=== PATIENT | male | born 1970 | race Caucasian/White ===

== ENCOUNTER 2019-12-06 13:06 | Outpatient (REF) | payer MEDICARE, MEDICAID, SELFPAY ==
[2019-12-06 14:41] LABS: Creatinine Urine 147.04 mg/dL
[2019-12-06 14:52] LABS: Estimated Average Glucose 220 mg/dL; Hemoglobin A1c % 9.3 %
[2019-12-06 15:17] LABS: Anion Gap 13 (12-20); Blood Urea Nitrogen 12 mg/dL (9-16); Calcium 8.8 mg/dL (8.4-10.2); Carbon Dioxide 27 mmol/L (22-29); Chloride 99 mmol/L (96-108); Estimated Glomerular Filt Rate > 60; Glucose Random 341 mg/dL (60-115); Potassium 4.3 mmol/l (3.3-5.1); Sodium 135 mmol/L (135-145)
[2019-12-07 19:42] LABS: LDL Cholesterol Direct 121 mg/dL (<100)
== END 2019-12-06 13:07 | disposition home or self-care (01) ==
LOC: HO.HMGCLDS 13:06
PROVIDERS: PCP Internal Medicine; Visit Provider Internal Medicine
DX: E13.9 Other specified diabetes mellitus without complications (principal); E78.9 Disorder of lipoprotein metabolism, unspecified; K21.9 Gastro-esophageal reflux disease without esophagitis; Z00.01 Encounter for general adult medical examination with abnormal findings
CPT/HCPCS: 80048; 82043; 83036; 83721

== ENCOUNTER 2020-02-14 13:21 | Outpatient (REF) | payer MEDICARE, MEDICAID, SELFPAY | END 2020-02-14 13:22 | disposition home or self-care (01) | LOC: HO.HMGCLDS 13:21 | PROVIDERS: PCP Internal Medicine; Visit Provider Internal Medicine | DX: Z20.828 Contact with and (suspected) exposure to other viral communicable diseases (principal) | CPT/HCPCS: C9803; U0003 ==

== ENCOUNTER 2020-04-06 10:19 | Outpatient (REF) | payer MEDICARE, MEDICAID, SELFPAY ==
[2020-04-06 11:47] LABS: Alanine Aminotransferase 33 U/L (0-40); Albumin Level 3.8 g/dL (3.5-5.0); Alkaline Phosphatase 103 U/L (39-117); Anion Gap 15 (12-20); Aspartate Amino Transferase 49 U/L (5-37); Bilirubin Direct < 0.2 mg/dL (0.0-0.5); Bilirubin Total 0.3 mg/dL (0.0-1.0); Blood Urea Nitrogen 12 mg/dL (9-16); Calcium 9.2 mg/dL (8.4-10.2); Carbon Dioxide 28 mmol/L (22-29); Chloride 95 mmol/L (96-108); Estimated Glomerular Filt Rate > 60; Glucose Random 355 mg/dL (60-115); Potassium 4.9 mmol/L (3.3-5.1); Sodium 133 mmol/L (135-145)
[2020-04-06 12:08] LABS: Estimated Average Glucose 226 mg/dL; Hemoglobin A1c % 9.5 %
== END 2020-04-06 10:20 | disposition home or self-care (01) ==
LOC: HO.HMGCLDS 10:19
PROVIDERS: PCP Internal Medicine; Visit Provider Internal Medicine
DX: E11.65 Type 2 diabetes mellitus with hyperglycemia (principal); E78.9 Disorder of lipoprotein metabolism, unspecified; K21.9 Gastro-esophageal reflux disease without esophagitis
CPT/HCPCS: 36415; 80048; 80076; 83036

== ENCOUNTER → 2020-05-28 13:19 | Outpatient (BNVA) | payer MEDICARE, MEDICAID, SELFPAY | PROVIDERS: PCP Internal Medicine; Visit Provider Nurse Practitioner Gerontology | DX: E11.65 Type 2 diabetes mellitus with hyperglycemia (principal); E78.5 Hyperlipidemia, unspecified | CPT/HCPCS: 82947; 99212 ==

== ENCOUNTER 2020-06-28 08:53 | Outpatient (REF) | payer MEDICARE, MEDICAID, SELFPAY ==
[2020-06-28 10:15] LABS: Alanine Aminotransferase 14 U/L (0-40); Albumin Level 4.2 g/dL (3.5-5.0); Alkaline Phosphatase 98 U/L (39-117); Anion Gap 14 (12-20); Aspartate Amino Transferase 17 U/L (5-37); Bilirubin Total 0.2 mg/dL (0.0-1.0); Blood Urea Nitrogen 16 mg/dL (9-16); Calcium 9.9 mg/dL (8.4-10.2); Carbon Dioxide 29 mmol/L (22-29); Chloride 98 mmol/L (96-108); Cholesterol 177 mg/dL; Estimated Glomerular Filt Rate > 60; Glucose Fasting 164 mg/dL (60-99); HDL Cholesterol 39 mg/dL; LDL Cholesterol Calculated 114 mg/dl; Potassium 5.2 mmol/L (3.3-5.1); Sodium 136 mmol/L (135-145); Total Protein 7.3 g/dL (6.5-8.0); Triglycerides 122 mg/dL
[2020-06-28 10:51] LABS: Creatinine Urine 85.18 mg/dL; Microalbum/Creatinine Ratio Ur 24.6 ug/mg cr
[2020-06-29 17:41] LABS: LDL Cholesterol Direct 117 mg/dL (<100)
== END 2020-06-28 08:54 | disposition home or self-care (01) ==
LOC: HO.LAB 08:53
PROVIDERS: Visit Provider Nurse Practitioner Gerontology
DX: E11.65 Type 2 diabetes mellitus with hyperglycemia (principal)
CPT/HCPCS: 36415; 80053; 80061; 82043; 83721

== ENCOUNTER 2020-07-06 08:59 | Outpatient (REF) | payer MEDICARE, MEDICAID, SELFPAY ==
[2020-07-06 10:48] LABS: Anion Gap 13 (12-20); Blood Urea Nitrogen 22 mg/dL (9-16); Calcium 9.4 mg/dL (8.4-10.2); Carbon Dioxide 31 mmol/L (22-29); Chloride 96 mmol/L (96-108); Estimated Glomerular Filt Rate > 60; Glucose Random 155 mg/dL (60-115); Potassium 4.4 mmol/L (3.3-5.1); Sodium 136 mmol/L (135-145)
== END 2020-07-06 09:00 | disposition home or self-care (01) ==
LOC: HO.LAB 08:59
PROVIDERS: PCP Internal Medicine; Visit Provider Nurse Practitioner Gerontology
DX: E11.65 Type 2 diabetes mellitus with hyperglycemia (principal)
CPT/HCPCS: 36415; 80048

== ENCOUNTER → 2020-07-13 09:22 | Outpatient (BNVA) | payer MEDICARE, MEDICAID, SELFPAY | PROVIDERS: PCP Internal Medicine; Visit Provider Nurse Practitioner Gerontology | DX: E11.65 Type 2 diabetes mellitus with hyperglycemia (principal); E78.5 Hyperlipidemia, unspecified; R35.0 Frequency of micturition; R63.1 Polydipsia; Z79.84 Long term (current) use of oral hypoglycemic drugs; Z79.899 Other long term (current) drug therapy | CPT/HCPCS: 82947; 99212 ==

== ENCOUNTER → 2020-11-20 07:47 | Outpatient (BNVA) | payer MEDICARE, MEDICAID, SELFPAY | PROVIDERS: PCP Internal Medicine; Visit Provider Nurse Practitioner Gerontology | DX: E11.65 Type 2 diabetes mellitus with hyperglycemia (principal); E78.5 Hyperlipidemia, unspecified | CPT/HCPCS: Q3014 ==

== ENCOUNTER 2020-12-07 10:49 | Outpatient (REF) | payer MEDICARE, MEDICAID, SELFPAY ==
[2020-12-07 14:10] LABS: MANUAL DIFF FLAG NO
[2020-12-07 14:26] LABS: Estimated Average Glucose 212 mg/dL
[2020-12-07 14:29] LABS: Basophils Absolute Auto 0.1 X10*3/uL (0.0-0.2); Basophils Percent Auto 0.5 % (0-2); Eosinophils Absolute Auto 0.3 X10*3/uL (0.0-0.4); Eosinophils Percent Auto 2.1 % (0-4); Hematocrit 43.1 % (42-52); Hemoglobin 14.2 g/dl (14.0-18.0); Imm Gran Abs Auto 0.03 X10*3/uL (0.00-0.03); Imm Gran Pct Auto 0.2 % (0.0-0.4); Lymphocytes Absolute Auto 4.9 X10*3/uL (1.2-4.9); Lymphocytes Percent Auto 38.9 % (20-40); Mean Corpuscular HGB Conc 32.9 g/dl (31.0-36.0); Mean Corpuscular Volume 97.1 fL (80-98); Monocytes Percent Auto 7.6 % (2-11); Neutrophils Absolute Auto 6.4 X10*3/uL (2.0-8.3); Neutrophils Percent Auto 50.7 % (45-73); Platelet Count 218 X10*3/uL (160-400); Red Blood Count 4.44 X10*6/uL (4.60-5.80); White Blood Count 12.5 X10*3/uL (4.8-10.8)
[2020-12-07 14:34] LABS: Microalbum/Creatinine Ratio Ur 19.7 ug/mg cr
[2020-12-07 14:37] LABS: Alanine Aminotransferase 13 U/L (0-40); Albumin Level 4.1 g/dL (3.5-5.0); Alkaline Phosphatase 93 U/L (39-117); Anion Gap 16 (12-20); Aspartate Amino Transferase 18 U/L (5-37); Bilirubin Direct < 0.2 mg/dL (0.0-0.5); Bilirubin Total 0.2 mg/dL (0.0-1.0); Blood Urea Nitrogen 17 mg/dL (9-16); Calcium 9.5 mg/dL (8.4-10.2); Carbon Dioxide 27 mmol/L (22-29); Chloride 98 mmol/L (96-108); Estimated Glomerular Filt Rate > 60; Glucose Random 177 mg/dL (60-115); Potassium 4.8 mmol/L (3.3-5.1); Sodium 136 mmol/L (135-145); Total Protein 6.9 g/dL (6.5-8.0)
[2020-12-07 14:48] LABS: TSH reflex Free T4 1.72 uIU/mL (0.32-4.0)
[2020-12-08 12:31] LABS: LDL Cholesterol Direct 75 mg/dL (<100)
== END 2020-12-07 10:50 | disposition home or self-care (01) ==
LOC: HO.HMGCLDS 10:49
PROVIDERS: PCP Internal Medicine; Visit Provider Internal Medicine
DX: Z00.01 Encounter for general adult medical examination with abnormal findings (principal); E11.65 Type 2 diabetes mellitus with hyperglycemia; E78.9 Disorder of lipoprotein metabolism, unspecified
CPT/HCPCS: 36415; 80053; 82043; 82248; 83036; 83721; 84443; 85025

== ENCOUNTER 2021-02-16 13:45 | Outpatient (REF) | payer MEDICARE, MEDICAID, SELFPAY ==
[2021-02-16 15:07] LABS: Binax Internal Control QC Valid; Binax Lot number: 9864; Binax Now Covid-19 Ag Negative (Negative)
== END 2021-02-16 13:46 | disposition home or self-care (01) ==
LOC: HO.LAB 13:45
PROVIDERS: Visit Provider Internal Medicine
DX: Z20.822 Contact with and (suspected) exposure to COVID-19 (principal)
CPT/HCPCS: 36415; C9803

== ENCOUNTER → 2021-03-20 08:06 | Outpatient (BNVA) | payer MEDICARE, MEDICAID, SELFPAY | PROVIDERS: PCP Internal Medicine; Visit Provider Nurse Practitioner Gerontology | DX: E11.42 Type 2 diabetes mellitus with diabetic polyneuropathy (principal); E11.65 Type 2 diabetes mellitus with hyperglycemia; E78.5 Hyperlipidemia, unspecified | CPT/HCPCS: 82947; 83036; 99212 ==

== ENCOUNTER 2021-03-29 12:05 | Outpatient (REF) | payer MEDICARE, MEDICAID, SELFPAY ==
[2021-03-29 14:01] LABS: Alanine Aminotransferase 10 U/L (0-40); Albumin Level 3.9 g/dL (3.5-5.0); Alkaline Phosphatase 82 U/L (39-117); Aspartate Amino Transferase 12 U/L (5-37); Bilirubin Direct < 0.2 mg/dL (0.0-0.5); Bilirubin Total 0.3 mg/dL (0.0-1.0); Total Protein 6.7 g/dL (6.5-8.0)
== END 2021-03-29 12:06 | disposition home or self-care (01) ==
LOC: HO.LAB 12:05
PROVIDERS: PCP Internal Medicine; Visit Provider General Practice
DX: F25.1 Schizoaffective disorder, depressive type (principal); Z79.899 Other long term (current) drug therapy
CPT/HCPCS: 36415; 80076

== ENCOUNTER 2021-05-10 12:55 | Outpatient (REF) | payer MEDICARE, MEDICAID, SELFPAY ==
--- NOTE | ~2021-05-10 | XR_ITS ---
EXAMINATION: XR FACIAL BONES CLINICAL INFORMATION: Unspecified injury of the face. COMPARISON: None TECHNIQUE: 3 views of the facial bones were obtained. FINDINGS: There are no fractures or dislocations. No bone, joint or soft tissue abnormality is demonstrated. XR/XR facial bones <3V IMPRESSION: Unremarkable facial bones examination.
== END 2021-05-10 12:56 | disposition home or self-care (01) ==
LOC: HO.HMGCX 12:55
PROVIDERS: Visit Provider Internal Medicine
DX: S09.93XA Unspecified injury of face, initial encounter (principal)
CPT/HCPCS: 70140

== ENCOUNTER → 2021-08-14 10:16 | Outpatient (BNVA) | payer MEDICARE, MEDICAID, SELFPAY | PROVIDERS: PCP Internal Medicine; Visit Provider Nurse Practitioner Gerontology | DX: E11.65 Type 2 diabetes mellitus with hyperglycemia (principal); E11.42 Type 2 diabetes mellitus with diabetic polyneuropathy; E78.5 Hyperlipidemia, unspecified; Z79.84 Long term (current) use of oral hypoglycemic drugs | CPT/HCPCS: 82947; 99212 ==

== ENCOUNTER 2021-12-13 10:16 | Outpatient (REF) | payer MEDICARE, MEDICAID, SELFPAY ==
[2021-12-13 11:25] LABS: MANUAL DIFF FLAG NO
[2021-12-13 11:31] LABS: Basophils Absolute Auto 0.1 X10*3/uL (0.0-0.2); Basophils Percent Auto 0.5 % (0-2); Eosinophils Absolute Auto 0.2 X10*3/uL (0.0-0.4); Eosinophils Percent Auto 1.9 % (0-4); Hematocrit 45.1 % (42.0-52.0); Hemoglobin 14.6 g/dl (14.0-18.0); Imm Gran Abs Auto 0.06 X10*3/uL (0.00-0.03); Imm Gran Pct Auto 0.5 % (0.0-0.4); Lymphocytes Absolute Auto 3.7 X10*3/uL (1.2-4.9); Lymphocytes Percent Auto 31.1 % (20-40); Mean Corpuscular HGB Conc 32.4 g/dl (31.0-36.0); Mean Corpuscular Hemoglobin 31.2 pg (27.0-33.0); Mean Corpuscular Volume 96.4 fL (80.0-98.0); Mean Platelet Volume 10.6 fL (9.4-12.4); Monocytes Absolute Auto 0.7 X10*3/uL (0.1-1.2); Monocytes Percent Auto 6.2 % (2-11); Neutrophils Absolute Auto 7.1 x10*3/uL (2.0-8.3); Neutrophils Percent Auto 59.8 % (45-73); Platelet Count 224 X10*3/uL (160-400); Red Blood Count 4.68 X10*6/uL (4.60-5.80); Red Cell Distribution Width 13.5 % (11.0-16.0)
[2021-12-13 11:47] LABS: Estimated Average Glucose 186 mg/dL; Hemoglobin A1c % 8.1 %
[2021-12-13 11:58] LABS: Alanine Aminotransferase 9 U/L (0-40); Alkaline Phosphatase 100 U/L (39-117); Anion Gap 16 (12-20); Aspartate Amino Transferase 15 U/L (5-37); Bilirubin Total 0.2 mg/dL (0.0-1.0); Blood Urea Nitrogen 17 mg/dL (9-16); Calcium 9.6 mg/dL (8.4-10.2); Carbon Dioxide 29 mmol/L (22-29); Chloride 99 mmol/L (96-108); Estimated Glomerular Filt Rate > 60; Glucose Random 129 mg/dL (60-115); Potassium 4.5 mmol/L (3.3-5.1); Sodium 139 mmol/L (135-145); Total Protein 6.8 g/dL (6.5-8.0)
[2021-12-13 12:07] LABS: TSH reflex Free T4 1.42 uIU/mL (0.32-4.0)
[2021-12-15 08:42] LABS: LDL Cholesterol Direct 95 mg/dL (<100)
== END 2021-12-13 10:17 | disposition home or self-care (01) ==
LOC: HO.HMGCLDS 10:16
PROVIDERS: PCP Internal Medicine; Visit Provider Internal Medicine
DX: Z00.01 Encounter for general adult medical examination with abnormal findings (principal); E13.9 Other specified diabetes mellitus without complications; E78.9 Disorder of lipoprotein metabolism, unspecified; K21.9 Gastro-esophageal reflux disease without esophagitis
CPT/HCPCS: 36415; 80053; 83036; 83721; 84443; 85025

== ENCOUNTER 2022-06-13 10:04 | Outpatient (REF) | payer MEDICARE, MEDICAID, SELFPAY ==
[2022-06-13 11:44] LABS: MANUAL DIFF FLAG NO
[2022-06-13 12:03] LABS: Basophils Absolute Auto 0.1 X10*3/uL (0.0-0.2); Basophils Percent Auto 0.5 % (0-2); Eosinophils Absolute Auto 0.2 X10*3/uL (0.0-0.4); Eosinophils Percent Auto 1.9 % (0-4); Hematocrit 38.8 % (42.0-52.0); Hemoglobin 12.7 g/dl (14.0-18.0); Imm Gran Abs Auto 0.04 X10*3/uL (0.00-0.03); Imm Gran Pct Auto 0.4 % (0.0-0.4); Lymphocytes Absolute Auto 3.6 X10*3/uL (1.2-4.9); Lymphocytes Percent Auto 34.8 % (20-40); Mean Corpuscular HGB Conc 32.7 g/dl (31.0-36.0); Mean Corpuscular Hemoglobin 31.4 pg (27.0-33.0); Mean Platelet Volume 11.3 fL (9.4-12.4); Monocytes Absolute Auto 0.9 X10*3/uL (0.1-1.2); Monocytes Percent Auto 8.2 % (2-11); Neutrophils Absolute Auto 5.7 x10*3/uL (2.0-8.3); Neutrophils Percent Auto 54.2 % (45-73); Platelet Count 209 X10*3/uL (160-400); Red Blood Count 4.04 X10*6/uL (4.60-5.80); Red Cell Distribution Width 13.7 % (11.0-16.0); White Blood Count 10.5 X10*3/uL (4.8-10.8)
[2022-06-13 12:05] LABS: Estimated Average Glucose 237 mg/dL; Hemoglobin A1c % 9.9 %
[2022-06-13 12:42] LABS: Alanine Aminotransferase 8 U/L (0-40); Albumin Level 3.3 g/dL (3.5-5.0); Alkaline Phosphatase 106 U/L (39-117); Anion Gap 12 (12-20); Aspartate Amino Transferase 12 U/L (5-37); Bilirubin Total 0.2 mg/dL (0.0-1.0); Blood Urea Nitrogen 17 mg/dL (9-16); Carbon Dioxide 31 mmol/L (22-29); Chloride 99 mmol/L (96-108); Cholesterol 110 mg/dL; Estimated Glomerular Filt Rate > 60; Glucose Fasting 292 mg/dL (60-99); Glucose Random 289 mg/dL (60-115); HDL Cholesterol 35 mg/dL; LDL Cholesterol Calculated 51 mg/dl; Potassium 4.7 mmol/L (3.3-5.1); Sodium 137 mmol/L (135-145); TSH reflex Free T4 1.57 uIU/mL (0.32-4.0); Total Protein 5.9 g/dL (6.5-8.0); Triglycerides 123 mg/dL
[2022-06-13 12:59] LABS: Creatinine Urine 49.22 mg/dL; Microalbumin Urine < 5.0 mg/L
[2022-06-15 04:58] LABS: LDL Cholesterol Direct 51 mg/dL (<100)
== END 2022-06-13 10:05 | disposition home or self-care (01) ==
LOC: HO.HMGCLDS 10:04
PROVIDERS: PCP Internal Medicine; Visit Provider Internal Medicine
DX: E11.42 Type 2 diabetes mellitus with diabetic polyneuropathy (principal); E78.9 Disorder of lipoprotein metabolism, unspecified
CPT/HCPCS: 36415; 80053; 80061; 82043; 83036; 83721; 84443; 85025

== ENCOUNTER 2022-09-12 09:17 | Outpatient (AMB) | payer MEDICARE, MEDICAID, SELFPAY ==
--- NOTE | 2022-09-12 09:21 | A.OFFPC_ITS ---
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: No Accompanied by: Self / Same As Patient Allergies No Known Allergies Allergy (Verified 09/12/22 09:24) Medication List - Last Reconciled 09/12/22 by Mauro Zambrano MD acetaminophen 325 mg PO Q6H PRN atorvastatin 40 mg PO BEDTIME blood sugar diagnostic ([employer] No Coding strips) Tests 4X/day blood-glucose meter ([employer] Autocode Meter kit) Tests 4X/day clonidine HCl 0.1 mg PO TID dulaglutide (Trulicity) 4.5 mg (0.5 mL) subcut QWEEK empagliflozin (Jardiance) 10 mg PO QAM hydroxyzine pamoate (Vistaril) 50 mg PO BEDTIME lancets (Accu-Chek Softclix Lancets) As directed lancets ([employer] Lancets) tests 4/day latex gloves (Latex Gloves, Medium) As directed omeprazole 20 mg PO QAM 90 days risperidone 3 mg PO BID Tobacco use date assessed: 06/13/22 Dental Screening Dental Screen Date: 09/12/22 Did you have a dental visit in the last 12 months?: Yes Did you have a dental problem in the last 6 months where you did not have access to dental care?: No Was dental information given to patient?: Patient has dentist HPI 4 Month follow up HPI Details Patient is 52-year-old gentleman came in today for his regular follow- up The only medication from PCP office is Tylenol for aches and pains Zestril 2.5 mg as renal protection for diabetes And omeprazole 20 mg Patient has appointment with endocrinology October 01, I wrote the date and handed to the family member so he does not miss the appointment His hemoglobin A1c is 9.7 today He is to continue all his diabetic medications for now until seen next month by Dr. Valdez Patient has appointment with me in December for physical exam Labs needs to be done before the visit fasting. Order placed. [facility] Medical History Chronic GERD DM2 (diabetes mellitus, type 2) Hyperlipidemia LDL goal <100 Lipid disorder Schizophrenia Type 2 diabetes mellitus with diabetic polyneuropathy Uncontrolled diabetes mellitus Surgical History Hernia History of back surgery History of colonoscopy History of knee surgery Family History Father Colon cancer Mother No problems noted. Brother No problems noted. Sister No problems noted. Social History Household Members: Other Household Members Other:: Shared living - [facility] Housing Housing: Assisted Living Facility (service [facility] ) Alcohol intake: never Patient Tobacco Use Status: Current everyday Tobacco user Cigarette Packs Per Day: 1 e-Cigarette/Vaping Use: Never Used Current occupational status: disabled Cognitive needs: No Hearing needs: No Vision needs: Yes Questionnaire PHQ-9 Over the last 2 weeks, how often have you been bothered by any of the following problems? 1. Little interest or pleasure in doing things: not at all 2. Feeling down, depressed, or hopeless: not at all 3. Trouble falling or staying asleep, or sleeping too much: not at all 4. Feeling tired or having little energy: not at all 5. Poor appetite or overeating: not at all 6. Feeling bad about yourself - or that you are a failure or have let yourself or your family down: not at all 7. Trouble concentrating on things, such as reading the newspaper or watching television: not at all 8. Moving or speaking so slowly that other people could have noticed. Or the opposite - being so fidgety or restless that you have been moving around a lot more than usual: not at all 9. Thoughts that you would be better off or of hurting yourself in some way: not at all Total score: 0 Depression Screening Interpretation: Negative 19105 - PHQ-9 Billing: Yes Source: Developed by Drs. Juan Akins, Janice Sheets, Oscar Jolly and colleagues, with an educational jyotsna from [employer]. Thrive Questionnaire Date Thrive assessed: 10/23/21 KENNETH-7 AMB Questionnaire KENNETH-7 Date KENNETH - 7 assessed: 09/12/22 Source: Developed by Drs. Juan Akins, Janice Sheets, Oscar Jolly and colleagues, with an educational jyotsna from [employer]. KENNETH-7 Assessment Billing KENNETH-7 Assessment Tool: pt declined-do not bill Review of Systems Const Denies chills and Denies fever(s) ENT Denies epistaxis and Denies nasal discharge Card Denies chest pain Resp Denies chest congestion, Denies cough and Denies hemoptysis GI Denies diarrhea and Denies nausea Skin/Breast Denies rash Neuro Reports no additional complaints Psych Reports no additional complaints Endo Reports no additional complaints Physical exam (Primary Care) Vital Signs: Last Vital Signs Pulse 85 09/12/22 09:27 BP 112/74 09/12/22 09:27 Pulse Ox 95 09/12/22 09:27 BMI result Body Mass Index 27.4 Tobacco/Smoking Status: Tobacco use Status Tobacco use date assessed 06/13/22 09/12/22 09:23 Patient Tobacco Use Status Current everyday Tobacco 09/12/22 09:23 e-Cigarette/Vaping Use Never Used 09/12/22 09:23 PHQ-9: PHQ-9 Score PHQ-9: Total score 0 09/12/22 09:27 Depression Screening Interpretation: Negative Thrive Assessment: Date of Thrive Assessment Date Thrive assessed 10/23/21 09/12/22 09:23 Const General: cooperative, comfortable and no acute distress Orientation/consciousness: patient oriented x3 HENMT Head: Yes normocephalic Eyes General: appearance normal, both eyes and all related structures Neck Neck: Yes supple Resp Effort & Inspection: normal respiratory effort, no cough and no stridor Cardio Rhythm: regular rhythm Heart sounds: S1 normal heart sound present and S2 normal heart sound present Skin General skin exam: turgor normal Neuro General: patient oriented x3, tone normal and moves all extremities Extrem Right lower extremity: no edema Left lower extremity: no edema Assessment and Plan Assessment & Plan (1) Uncontrolled diabetes mellitus: Code(s): E11.65 - Type 2 diabetes mellitus with hyperglycemia Qualifiers: Diabetes mellitus type: type 2 Glycemic state: with hyperglycemia Qualified Code(s): E11.65 - Type 2 diabetes mellitus with hyperglycemia (2) Chronic GERD: Code(s): K21.9 - Gastro-esophageal reflux disease without esophagitis Plan Patient is 52-year-old gentleman came in today for his regular follow-up The only medication from PCP office is Tylenol for aches and pains Zestril 2.5 mg as renal protection for diabetes And omeprazole 20 mg Patient has appointment with endocrinology October 01, I wrote the date and handed to the family member so he does not miss the appointment His hemoglobin A1c is 9.7 today He is to continue all his diabetic medications for now until seen next month by Dr. Valdez Patient has appointment with me in December for physical exam Labs needs to be done before the visit fasting. Order placed. Orders: Orders AMB Hemoglobin A1c Today E11.9 - Type 2 diabetes mellitus without complications Comprehensive [place]. Panel Fast Today E11.65 - Type 2 diabetes mellitus with hyperglycemia, E78.9 - Disorder of lipoprotein metabolism, unspecified, K21.9 - Gastro-esophageal reflux disease without esophagitis Hemoglobin A1c Today E11.65 - Type 2 diabetes mellitus with hyperglycemia, E78.9 - Disorder of lipoprotein metabolism, unspecified, K21.9 - Gastro-esophageal reflux disease without esophagitis Lipid Panel Today E11.65 - Type 2 diabetes mellitus with hyperglycemia, E78.9 - Disorder of lipoprotein metabolism, unspecified, K21.9 - Gastro-esophageal reflux disease without esophagitis TSH reflex Free T4 Today E11.65 - Type 2 diabetes mellitus with hyperglycemia, 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 - Disorder of lipoprotein metabolism, unspecified, K21.9 - Gastro- esophageal reflux disease without esophagitis Microalbumin, Random (w Creat) Today E11.65 - Type 2 diabetes mellitus with hyperglycemia, E78.9 - Disorder of lipoprotein metabolism, unspecified, K21.9 - Gastro-esophageal reflux disease without esophagitis Complete Blood Count Auto Diff Today E11.65 - Type 2 diabetes mellitus with hyperglycemia, E78.9 - Disorder of lipoprotein metabolism, unspecified, K21.9 - Gastro-esophageal reflux disease without esophagitis Coding Level of Care Code Est Pt Level 3 (03896) Diagnoses Uncontrolled diabetes mellitus E11.65 Diabetes mellitus type: type 2 Glycemic state: with hyperglycemia Chronic GERD K21.9
[2022-09-12 09:27] VITALS: BP 112/74; PULSE 85; O2SAT 95; BMI 27.4
== END 2022-09-12 10:22 | disposition home or self-care (01) ==
PROVIDERS: Visit Provider Internal Medicine
DX: E11.65 Type 2 diabetes mellitus with hyperglycemia (principal); K21.9 Gastro-esophageal reflux disease without esophagitis; E11.9 Type 2 diabetes mellitus without complications
CPT/HCPCS: 83036; 99213

== ENCOUNTER 2022-10-01 10:05 | Outpatient (AMB) | payer MEDICARE, MEDICAID, SELFPAY ==
--- NOTE | 2022-10-01 10:07 | MHC.OFFVIS ---
Intake Vital Signs 10/01/22 10:08 Height 5 ft 6 in Weight 171 lb 8.314 oz BMI 27.7 BP 112/64 Blood Pressure Location Lt brachial Position Sitting Pulse 96 Pulse Source Pulse Oximeter Intake Visit Reasons: DM2 Intake Note: New patient to Dr. Valdez present today for Type 2 Diabetes Mellitus. Previously followed by PCP and Katy Leavitt. Last Diabetic Eye exam: Last Podiatry Visit: Random Glucose:261 mg/dl HgA1C: 9.7% 09/12/2022 Oven Dumper Required: No Accompanied by: Other Relationship Allergies No Known Allergies Allergy (Verified 10/01/22 10:14) Medication List - Last Reconciled 10/01/22 by Juan Valdez MD acetaminophen 325 mg PO Q6H PRN atorvastatin 40 mg PO BEDTIME blood sugar diagnostic ([employer] No Coding strips) Tests 4X/day blood-glucose meter ([employer] Autocode Meter kit) Tests 4X/day clonidine HCl 0.1 mg PO TID dulaglutide (Trulicity) 4.5 mg (0.5 mL) subcut QWEEK empagliflozin (Jardiance) 10 mg PO QAM hydroxyzine pamoate (Vistaril) 50 mg PO BEDTIME lancets (Accu-Chek Softclix Lancets) As directed lancets ([employer] Lancets) tests 4/day latex gloves (Latex Gloves, Medium) As directed metformin 1,000 mg PO BID omeprazole 20 mg PO QAM 90 days risperidone 3 mg PO BID HPI HPI Comments History of Present Illness Details Patient is 52 year old male with DM type 2 diagnosed for an unknown amount of time who presents for management of diabetes. Patient was last seen on 08/14/2021 by Katy Leavitt NP Past medical history: Dm2, HLD, schizophrenia Micro and macrovascular complications: neuropathy Diabetes medications: Trulicity 4.5 mg/week, Jardiance 10mg, metformin 500 2 pills BID, pioglitazone 15mg not taking . Unfortunately, patient did not bring log book or glucometer to follow-up visit Symptoms reported: denies numbness, tingling, cramping in lower extremities Hypoglycemia: denies Hyperglycemia: + urinary frequency, +polydypsia Exercise: walks 30 minutes or more a few times a day Eye exam: needs to make appt Laboratory Tests 03/20/21 08:34 Hgb A1c (Clinic) 9.9 H 12/07/20 12/07/20 12/07/20 10:58 10:58 10:58 Creatinine 0.86 Estimated GFR > 60 Hemoglobin A1c % 9.0 LDL Cholesterol Di rect 75 TSH 1.72 Microalb/Creat Rat io 12/07/20 10:58 Creatinine Estimated GFR Hemoglobin A1c % LDL Cholesterol Di rect TSH Microalb/Creat Rat io 19.7 PFSH Medical History Chronic GERD DM2 (diabetes mellitus, type 2) Hyperlipidemia LDL goal <100 Lipid disorder Schizophrenia Type 2 diabetes mellitus with diabetic polyneuropathy Uncontrolled diabetes mellitus Surgical History Hernia History of back surgery History of colonoscopy History of knee surgery Family History Father Colon cancer Mother No problems noted. Brother No problems noted. Sister No problems noted. Social History Household Members: Other Household Members Other:: Shared living - [facility] Housing Housing: Assisted Living Facility (service [facility] ) Alcohol intake: never Patient Tobacco Use Status: Current everyday Tobacco user Cigarette Packs Per Day: 1 e-Cigarette/Vaping Use: Never Used Current occupational status: disabled Cognitive needs: No Hearing needs: No Vision needs: Yes Physical Exam Absence of Cushingoid features. Absence of acromegalic features. Neck exam reveals nl size thyroid about 15 gms. No thyroid nodules palpable. No carotid bruits present. Lungs CTA. Heart S1 S2, Reg R/R. No M/R/ G. Skin exam reveals absence of vitiligo or acanthosis nigricans. Abdominal exam reveals Soft NT/ND with NA BS. No organomegaly present. Neck Other: . Extrem Other: Visual exam of foot performed. No ulcerations or open lesions. No onchomycosis, no callouses.Pulses 2 + distally Sensation intact to monofilament exam. Vibratory sensation sensed is intact with 128 Hz tuning fork Assessment & Plan Assessment & Plan (1) Uncontrolled diabetes mellitus: Code(s): E11.65 - Type 2 diabetes mellitus with hyperglycemia Qualifiers: Diabetes mellitus type: type 2 Glycemic state: with hyperglycemia Qualified Code(s): E11.65 - Type 2 diabetes mellitus with hyperglycemia Plan: This is a 52-year-old white male with a history of type 2 diabetes being managed with Trulicity, Jardiance, metformin with poor glycemic control and known microvascular complications namely neuropathy. Plan is to have the patient check his point cares pre and post meals. Most likely, he will need addition of basal insulin. Will sent to para educator and risk assessment consultant. Went over correlation of poor glycemic control to development progression of complications with patient. We could consider placing a professional sensor on the patient once he meets with the para educator Orders: Referrals Diabetes Education Referral E11.65 - Type 2 diabetes mellitus with hyperglycemia Nutrition/Dietitian Referral E11.65 - Type 2 diabetes mellitus with hyperglycemia Coding Level of Care Code Est Pt Level 4 (20682) Diagnoses Uncontrolled diabetes mellitus E11.65 Diabetes mellitus type: type 2 Glycemic state: with hyperglycemia
[2022-10-01 10:08] VITALS: BP 112/64; PULSE 96; BMI 27.7
[2022-10-01 10:25] LABS: Glucose, Whole Blood 261 mg/dL (60-115)
== END 2022-10-01 11:03 | disposition home or self-care (01) ==
PROVIDERS: PCP Internal Medicine; Visit Provider Internal Medicine Endocrinology, Diabetes & Metabolism
DX: E11.65 Type 2 diabetes mellitus with hyperglycemia (principal)
CPT/HCPCS: 99214

== ENCOUNTER → 2022-10-01 10:05 | Outpatient (BNVA) | payer MEDICARE, MEDICAID, SELFPAY | PROVIDERS: Visit Provider Internal Medicine Endocrinology, Diabetes & Metabolism | DX: E11.65 Type 2 diabetes mellitus with hyperglycemia (principal); E11.42 Type 2 diabetes mellitus with diabetic polyneuropathy; Z79.4 Long term (current) use of insulin; Z79.85 Long-term (current) use of injectable non-insulin antidiabetic drugs; Z79.84 Long term (current) use of oral hypoglycemic drugs | CPT/HCPCS: 82947; 99212 ==

== ENCOUNTER 2022-11-11 11:22 | Outpatient (AMB) | payer MEDICARE, MEDICAID, SELFPAY ==
--- NOTE | 2022-11-11 11:26 | A.OFFVIS_ITS ---
Intake VS Expanded 11/11/22 11:28 11/14/22 09:51 Height 5 ft 6 in 5 ft 6 in Weight 168 lb 13.985 oz 168 lb BMI 27.3 27.1 Intake Visit Reasons: f/u Type 2 DM/LVM Allergies No Known Allergies Allergy (Verified 10/01/22 10:14) HPI Nutrition Presentation Details Pt was referred by Dr. Valdez for T2DM With hyperglycemia for MNT Pt presents with home health provider, Adriana and her daughter. Pt has hx of schizophrenia. Pt participates in nutrition conversation and sometimes changes topics Home health provider reports working on meal planning at home however, Pt has lunch and dinner away from home. Pt reports participating in various evangelical events where meals/foods is offered They brought glucometer ([employer] Playbook) and BG range from 140-300s , these BGs are before meals when Pt is at home, home health provider assists patient in monitoring blood glucose while Pt is a t home. Fasting Pre dinner bedtime 11/11 140 11/10 174 11/09 200 180 11/08 221 239 11/07 183 340 Pt is able to read and understands numbers. Home health provider is requesting blanca sensor for Pt given that Pt eats out dilma nch/dinner the majority of the time and the glucose sensor will help Pt in self monitoring when eating Encounter sent to Dr. Valdez requesting blanca sensor related to hyperglycemia, Schizophrenia Pt and home health provider need education on meal planning, relationship of carbs to BG MMA-Vehrjso-Vh.Jeor Equation Height 5 ft 6 in Weight 168 lb Resting Metabolic Rate 1548.34 Calculated Activity Level Mild Activity Calories Needed to Maintain Weight 2128.97 Diagnosis Nutrition problem #1 excessive energy intake As related to (etiology) #1 diagnosis As evidenced by (sign/symptom) #1 widely varied blood sugar (BG ranging from 140-300s) Learning/Education Readiness to learn fair Educational materials provided Yes (meal plan ideas home and when eatin gout ) Most Recent Diabetes Results: Microalb/Creat Ratio TNP 06/13/22 Cholesterol 110 mg/dL 06/13/22 HDL Cholesterol 35 mg/dL 06/13/22 Triglycerides 123 mg/dL 06/13/22 Creatinine 0.93 mg/dL (0.5-1.4) 06/13/22 Blood Urea Nitrogen 17 mg/dL (9-16) H 06/13/22 Sodium 137 mmol/L (135-145) 06/13/22 Potassium 4.7 mmol/L (3.3-5.1) 06/13/22 Chloride 99 mmol/L (96-108) 06/13/22 Carbon Dioxide 31 mmol/L (22-29) H 06/13/22 Calcium 9.0 mg/dL (8.4-10.2) 06/13/22 AST 12 U/L (5-37) 06/13/22 ALT 8 U/L (0-40) 06/13/22 Total Protein 5.9 g/dL (6.5-8.0) L 06/13/22 Albumin 3.3 g/dL (3.5-5.0) L 06/13/22 [facility] Medical History Chronic GERD DM2 (diabetes mellitus, type 2) Hyperlipidemia LDL goal <100 Lipid disorder Schizophrenia Type 2 diabetes mellitus with diabetic polyneuropathy Uncontrolled diabetes mellitus Surgical History Hernia History of back surgery History of colonoscopy History of knee surgery Family History Father Colon cancer Mother No problems noted. Brother No problems noted. Sister No problems noted. Social History Household Members: Other Household Members Other:: Shared living - [employer] [facility] Housing Housing: Assisted Living Facility (service net ) Alcohol intake: never Patient Tobacco Use Status: Current everyday Tobacco user Cigarette Packs Per Day: 1 e-Cigarette/Vaping Use: Never Used Current occupational status: disabled Cognitive needs: No Hearing needs: No Vision needs: Yes Assessment & Plan Assessment & Plan (1) Uncontrolled diabetes mellitus: Code(s): E11.65 - Type 2 diabetes mellitus with hyperglycemia Qualifiers: Diabetes mellitus type: type 2 Glycemic state: with hyperglycemia Qualified Code(s): E11.65 - Type 2 diabetes mellitus with hyperglycemia Plan: wt 76 kg Est kcal needs as per MSJ: 2200 (40% carb, 30% protein/fat) Est fluid needs as per 30 ml/d: 2300 Est prot per day as per 1 g/kg bw: 76 Recommend fiber intake : 8-10 g per day and gradually increase to 25-28 g per day for women and 35-38 g for men or as tolerated Recommend sodium intake per day : less than 2000 mg Educated patient on: ( R = reviewed V = verbalizes understanding N/R = needs review N/A = not applicable * Food sources of carbohydrate, adequate serving sizes and its role in various health conditions: R * Differences between complex carbohydrates a simple carbohydrates, role of fiber in diet: NR * Differences between types of fats and role in diet (mono on saturated fat fatty acids, saturated fatty acids, trans fats): R , basic low fat * Food sources of sodium in salt and healthy modifications for heart health in kidney health: NR * Healthy plate method concept: R * Physical activity: Benefits a precaution: R * Hypoglycemia protocol (rule of 15): NR * Dietary prevention of Hyperglycemia: R Patient Instructions: Choose water or diet beverages with meals /snacks Choose 12 microgrinder operator (tuna or turkey or ham or chicken with lots of vegetables and omit cookies, choose milk instead follow healthy plate method at dinner - see meal ideas listed and provided Coding Level of Care Code Nutr Indiv Intake (92244) Diagnoses Uncontrolled type 2 diabetes mellitus with hyperglycemia E11.65 Diabetes mellitus type: type 2 Glycemic state: with hyperglycemia Time Spent (min) 30
[2022-11-11 11:28] VITALS: BMI 27.3
[2022-11-14 09:51] VITALS: BMI 27.1
== END 2022-11-11 12:22 | disposition home or self-care (01) ==
PROVIDERS: PCP Internal Medicine; Visit Provider Dietitian, Registered
DX: E11.65 Type 2 diabetes mellitus with hyperglycemia (principal)

== ENCOUNTER → 2022-11-11 11:22 | Outpatient (BNVA) | payer MEDICARE, MEDICAID, SELFPAY | PROVIDERS: PCP Internal Medicine; Visit Provider Dietitian, Registered | DX: E11.65 Type 2 diabetes mellitus with hyperglycemia (principal); E11.42 Type 2 diabetes mellitus with diabetic polyneuropathy; Z71.3 Dietary counseling and surveillance | CPT/HCPCS: 97802 ==

== ENCOUNTER 2022-12-10 12:22 | Outpatient (AMB) | payer MEDICARE, MEDICAID, SELFPAY ==
--- NOTE | 2022-12-10 12:40 | MHC.AMDMED ---
Intake Intake Visit Reasons: dm [employer] Bag[employer]ener Required: No Allergies No Known Allergies Allergy (Verified 10/01/22 10:14) [facility] Comprehensive Diabetes Asmnt Most Recent Diabetes Results: Microalb/Creat Ratio TNP 06/13/22 Cholesterol 110 mg/dL 06/13/22 HDL Cholesterol 35 mg/dL 06/13/22 Triglycerides 123 mg/dL 06/13/22 Creatinine 0.93 mg/dL (0.5-1.4) 06/13/22 Blood Urea Nitrogen 17 mg/dL (9-16) H 06/13/22 Sodium 137 mmol/L (135-145) 06/13/22 Potassium 4.7 mmol/L (3.3-5.1) 06/13/22 Chloride 99 mmol/L (96-108) 06/13/22 Carbon Dioxide 31 mmol/L (22-29) H 06/13/22 Calcium 9.0 mg/dL (8.4-10.2) 06/13/22 AST 12 U/L (5-37) 06/13/22 ALT 8 U/L (0-40) 06/13/22 Total Protein 5.9 g/dL (6.5-8.0) L 06/13/22 Albumin 3.3 g/dL (3.5-5.0) L 06/13/22 FOR[facility]LY [facility], [facility] Medical History Chronic GERD DM2 (diabetes mellitus, type 2) Hyperlipidemia LDL goal <100 Lipid disorder Schizophrenia Type 2 diabetes mellitus with diabetic polyneuropathy Uncontrolled diabetes mellitus Surgical History Hernia History of back surgery History of colonoscopy History of knee surgery Family History Father Colon cancer Mother No problems noted. Brother No problems noted. Sister No problems noted. Social History Household Members: Other Household Members Other:: Shared living - Service Net Housing Housing: Assisted Living Facility (service net ) Alcohol intake: never Patient Tobacco Use Status: Current everyday Tobacco user Cigarette Packs Per Day: 1 e-Cigarette/Vaping Use: Never Used Current occupational status: disabled Cognitive needs: No Hearing needs: No Vision needs: Yes Assessment & Plan Assessment & Plan (1) Type 2 diabetes mellitus with diabetic polyneuropathy: Code(s): E11.42 - Type 2 diabetes mellitus with diabetic polyneuropathy Plan: Professional CGM Patient has signed consent for professional CGM. Patient given the opportunity to ask questions, and expressed concerns. Sensor placed in the back of patient's back of right arm Lot # [id number] Expiration Date:02/15/23 The purpose of the Professional Continuous Glucose Monitor (CGM) is to assess your blood sugar patterns in response to what you eat, the diabetes medications you take and physical activity .? This is why we have you keep a diary of what you eat and when, what time you take your? diabetes medications and what activity you do and when, while you are wearing the continuous glucose monitor . ? The continuous glucose monitoring (CGM) device will monitor your blood sugar frequently throughout the day and night. ? Please be sure to record everything that you eat, including portion sizes, all activity you do and when you take your diabetes medication . ? It is okay for you to shower and go about your normal daily activities while wearing the device ? . ? It is best to wear the device when you are having a normal week and best to avoid if you will be on vacation or undergoing medical testing or procedures ? . ? At your next scheduled appointment your continuous glucose monitor will be removed, and the data will be evaluated by your health care provider . ? We will contact you about those results and provide you with next steps ? If the device falls off before your next appointment is scheduled, simply return the device and your diary to the clinic . ? If it has been on for greater than three days there might be enough data to complete the test. If it is less than three days, you may need to have another device placed. Patient Instructions: The purpose of the Professional Continuous Glucose Monitor (CGM) is to assess your blood sugar patterns in response to what you eat, the diabetes medications you take and physical activity .? This is why we have you keep a diary of what you eat and when, what time you take your? diabetes medications and what activity you do and when, while you are wearing the continuous glucose monitor . ? The continuous glucose monitoring (CGM) device will monitor your blood sugar frequently throughout the day and night. ? Please be sure to record everything that you eat, including portion sizes, all activity you do and when you take your diabetes medication . ? It is okay for you to shower and go about your normal daily activities while wearing the device ? . ? It is best to wear the device when you are having a normal week and best to avoid if you will be on vacation or undergoing medical testing or procedures ? . ? At your next scheduled appointment your continuous glucose monitor will be removed, and the data will be evaluated by your health care provider . ? We will contact you about those results and provide you with next steps ? If the device falls off before your next appointment is scheduled, simply return the device and your diary to the clinic . ? If it has been on for greater than three days there might be enough data to complete the test. If it is less than three days, you may need to have another device placed. Portions of this note were created using voice recognition software, please excuse any words or phrases that may have been misinterpreted. Coding Level of Care Code Est Pt Level 1 (39438) Diagnoses Type 2 diabetes mellitus with diabetic polyneuropathy E11.42 CPT Codes Details - CPT: 17016 - Glucose Monitoring, continuous ([id number]) Office Procedures Glucose Monitoring Details 50915 - Glucose Monitoring, continuous Procedure code (CPT) selection complete
== END 2022-12-10 12:53 | disposition home or self-care (01) ==
PROVIDERS: PCP Internal Medicine; Visit Provider Registered Nurse Diabetes Educator
DX: E11.42 Type 2 diabetes mellitus with diabetic polyneuropathy (principal)

== ENCOUNTER → 2022-12-10 12:22 | Outpatient (BNVA) | payer MEDICARE, MEDICAID, SELFPAY | PROVIDERS: PCP Internal Medicine; Visit Provider Registered Nurse Diabetes Educator | DX: E11.42 Type 2 diabetes mellitus with diabetic polyneuropathy (principal) | CPT/HCPCS: 95250; 99211 ==

== ENCOUNTER 2022-12-26 10:03 | Outpatient (AMB) | payer MEDICARE, MEDICAID, SELFPAY ==
[2022-12-26 10:05] VITALS: BP 118/72; PULSE 98; O2SAT 97; BMI 28.9
--- NOTE | 2022-12-26 10:05 | A.OFFPC_ITS ---
Vital Signs 3 12/26/22 10:05 Height 5 ft 6 in Weight 179 lb BMI 28.9 BP 118/72 Blood Pressure Location Rt brachial Position Sitting Pulse 98 Pulse Source Pulse Oximeter Pulse Oximetry (%) 97 Oxygen Delivery Method Room Air Intake Visit Reasons: annual PE Allergies No Known Allergies Allergy (Verified 12/26/22 10:07) Medication List - Last Reconciled 12/26/22 by Mauro Zambrano MD acetaminophen 325 mg PO Q6H PRN atorvastatin 40 mg PO BEDTIME blood sugar diagnostic ([employer]St[employer] No Coding strips) Tests 4X/day blood-glucose meter ([employer] Autocode Meter kit) Tests 4X/day blood-glucose sensor (Kongregate Raúl 3 Sensor device) As directed change every 14 days clonidine HCl 0.1 mg PO TID divalproex mg PO dulaglutide (Trulicity) 4.5 mg (0.5 mL) subcut QWEEK empagliflozin (Jardiance) 10 mg PO QAM hydroxyzine pamoate (Vistaril) 50 mg PO BEDTIME lancets (Accu-Chek Softclix Lancets) As directed lancets (Prodigy Lancets) tests 4/day latex gloves (Latex Gloves, Medium) As directed lisinopril 2.5 mg PO DAILY metformin 1,000 mg PO BID omeprazole 20 mg PO QAM 90 days risperidone 3 mg PO BID Tobacco use date assessed: 12/26/22 HPI annual PE 2 HPI0 Details Patient is a 52-year-old gentleman with intellectual disability lives in a foster home Came in today for physical examination He tells me that he has been given new rain boots which are to half of his castillo Patient is telling me that moods are causing pain in his castillo area On examination he has developed skin excoriation with the edge of the boot rubs against his leg I would recommend to stop wearing these boots and get new pair of shoes. Meanwhile we have placed bandage over the skin excoriation, it does not look infected however it is inflamed. Foster family was instructed to keep an eye on it if it start losing fluid or get worse they are to let me know. Only medication patient is taking from this office is omeprazole and Tylenol as needed Today he agree to have colonoscopy, I have placed a referral for him to see a knurling machine operator Patient is seeing Dr. Valdez endocrinology for uncontrolled diabetes. Labs are needed today. Follow-up 6 months [facility] Medical History Type 2 diabetes mellitus with diabetic polyneuropathy DM2 (diabetes mellitus, type 2) Schizophrenia Hyperlipidemia LDL goal <100 Uncontrolled diabetes mellitus Chronic GERD Lipid disorder Surgical History History of back surgery History of knee surgery Hernia History of colonoscopy Family History Father Colon cancer Mother No problems noted. Brother No problems noted. Sister No problems noted. Social History Household Members: Other Household Members Other:: Shared living - Service Net Housing Housing: Assisted Living Facility (service net ) Alcohol intake: never Patient Tobacco Use Status: Current everyday Tobacco user Cigarette Packs Per Day: 1 e-Cigarette/Vaping Use: Never Used Current occupational status: disabled Cognitive needs: No Hearing needs: No Vision needs: Yes Questionnaire PHQ-9 Over the last 2 weeks, how often have you been bothered by any of the following problems? 1. Little interest or pleasure in doing things: not at all 2. Feeling down, depressed, or hopeless: not at all 3. Trouble falling or staying asleep, or sleeping too much: not at all 4. Feeling tired or having little energy: not at all 5. Poor appetite or overeating: not at all 6. Feeling bad about yourself - or that you are a failure or have let yourself or your family down: not at all 7. Trouble concentrating on things, such as reading the newspaper or watching television: not at all 8. Moving or speaking so slowly that other people could have noticed. Or the opposite - being so fidgety or restless that you have been moving around a lot more than usual: not at all 9. Thoughts that you would be better off or of hurting yourself in some way: not at all Total score: 0 Depression Screening Interpretation: Negative Depression Screening Done: Yes 11860 - PHQ-9 Billing: Yes Source: Developed by Drs. Juan Akins, Janice Sheets, Oscar Jolly and colleagues, with an educational jyotsna from [employer]. Thrive Questionnaire Date Thrive assessed: 10/23/21 KENNETH-7 AMB Questionnaire KENNETH-7 Date KENNETH - 7 assessed: 09/12/22 Source: Developed by Drs. Juan Akins, Janice Sheets, Oscar Jolly and colleagues, with an educational jyotsna from [employer]. Review of Systems Const Denies chills, Denies fever(s) and Denies headache(s) Eyes Denies blurry vision ENT Denies headache(s), Denies nasal discharge, Denies nasal obstruction, Denies odynophagia and Denies sinus pain Card Denies chest pain at rest and Denies chest pain with activity Resp Denies cough and Denies hemoptysis GI Denies diarrhea, Denies odynophagia, Denies vomiting and Denies hematemesis Reports as per HPI Musc Denies abnormal gait Skin/Breast Reports as per HPI Neuro Denies Neuro-related abnormal movements, Denies Abnormal speech present, Denies abnormal gait and Denies headache(s) Endo Reports as per HPI Johan/Lymph Reports as per HPI Aller/Immun Reports as per HPI Physical exam (Primary Care) Vital Signs: Last Vital Signs Pulse 98 12/26/22 10:05 BP 118/72 12/26/22 10:05 Pulse Ox 97 12/26/22 10:05 Oxygen Delivery Method Room Air 12/26/22 10:05 BMI result Body Mass Index 28.9 Tobacco/Smoking Status: Tobacco use Status Tobacco use date assessed 12/26/22 12/26/22 10:12 Patient Tobacco Use Status Current everyday Tobacco 12/26/22 10:05 e-Cigarette/Vaping Use Never Used 12/26/22 10:05 Depression Screening Interpretation: Negative Thrive Assessment: Date of Thrive Assessment Date Thrive assessed 10/23/21 12/26/22 10:05 Const General: cooperative, comfortable and no acute distress Orientation/consciousness: patient oriented x3 HENMT Head: Yes normocephalic and Yes atraumatic Eyes General: appearance normal, both eyes and all related structures Pupils: Equal, round and reactive pupils present EOM: EOMs intact bilaterally Neck Neck: Yes supple and No lymphadenopathy Thyroid: Thyroid normal Lymphatic: no lymphadenopathy noted Resp Effort & Inspection: normal respiratory effort and able to speak in complete sentences Auscultation: clear to auscultation bilaterally Cardio Heart sounds: S1 normal heart sound present and S2 normal heart sound present GI Palpation (GI): Soft to palpation and nontender Auscultation: normal bowel sounds General: Yes no CVA tenderness Back/Spine/Pelvis Back: no CVA tenderness Skin General skin exam: elasticity normal and turgor normal Full body images: 2 1. Skin excoriation with some inflammation, no discharge 2. Same finding Neuro General: patient oriented x3 and gait normal Cranial nerves: Yes Equal, round and reactive pupils present Speech: No Abnormal speech present Extrem General: No edema Office Procedures Flu Questionnaire Does the patient have a severe egg allergy?: No Does the patient have severe life threatening allergies?: No Does the patient have a fever or illness today?: No Has the patient ever had Guillain-Fair Play Syndrome?: No Has the patient ever had any past reaction to a flu shot?: No Immunizations flu vacc [id number] 6mos up(PF) 60 mcg(15 mcgx4)/0.5 mL IM syringe Performing Provider: Mauro Zambrano MD Performing Location: [facility] Administered by: Adriana Bush CMA on 12/26/22 10:45 2 Dose Route Admin Location Dispensed Lot Number Expiration Date [employer] 0.5 mL IM Left Deltoid 0.5 mL [id number] 08/16/23 03270-884-67 [employer] 2 VIS Given Date VIS Provided VIS Publication Date 12/26/22 Single Vaccine 20 Eligibility Eligibility Date Funding Source Not [facility] Eligible 12/26/22 Private Assessment and Plan Assessment & Plan (1) Encounter for general adult medical examination with abnormal findings: Code(s): Z00.01 - Encounter for general adult medical examination with abnormal findings (2) Uncontrolled diabetes mellitus: Code(s): E11.65 - Type 2 diabetes mellitus with hyperglycemia Qualifiers: Diabetes mellitus type: type 2 Glycemic state: with hyperglycemia Qualified Code(s): E11.65 - Type 2 diabetes mellitus with hyperglycemia (3) Type 2 diabetes mellitus with diabetic polyneuropathy: Code(s): E11.42 - Type 2 diabetes mellitus with diabetic polyneuropathy Qualifiers: Diabetes mellitus senior living insulin use: with dedicated intermodal truck driver use Qualified Code(s): E11.42 - Type 2 diabetes mellitus with diabetic polyneuropathy; Z79.4 - assisted (current) use of insulin (4) Lipid disorder: Code(s): E78.9 - Disorder of lipoprotein metabolism, unspecified (5) Chronic GERD: Code(s): K21.9 - Gastro-esophageal reflux disease without esophagitis (6) Intellectual disability: Code(s): F79 - Unspecified intellectual disabilities (7) Lives in adult foster home: Code(s): Z59.3 - Problems related to living in residential institution (8) Colon cancer screening: Code(s): Z12.11 - Encounter for screening for malignant neoplasm of colon (9) Skin excoriation: Code(s): T14.8XXA - Other injury of unspecified body region, initial encounter Plan Patient is a 52-year-old gentleman with intellectual disability lives in a foster home Came in today for physical examination He tells me that he has been given new rain boots which are to half of his castillo Patient is telling me that moods are causing pain in his castillo area On examination he has developed skin excoriation with the edge of the boot rubs against his leg I would recommend to stop wearing these boots and get new pair of shoes. Meanwhile we have placed bandage over the skin excoriation, it does not look infected however it is inflamed. Foster family was instructed to keep an eye on it if it start losing fluid or get worse they are to let me know. Only medication patient is taking from this office is omeprazole and Tylenol as needed Today he agree to have colonoscopy, I have placed a referral for him to see a knurling machine operator Patient is seeing Dr. Valdez endocrinology for uncontrolled diabetes. Labs are needed today. Follow-up 6 months Orders: Orders 2 Comprehensive Met. Panel Today E11.42 - Type 2 diabetes mellitus with diabetic polyneuropathy, E11.65 - Type 2 diabetes mellitus with hyperglycemia, E78.9 - Disorder of lipoprotein metabolism, unspecified, F79 - Unspecified intellectual disabilities, K21.9 - Gastro-esophageal reflux disease without esophagitis, Z00.01 - Encounter for general adult medical examination with abnormal findings, Z59.3 - Problems related to living in residential institution Microalbumin, Random (w Creat) Today E11.42 - Type 2 diabetes mellitus with diabetic polyneuropathy, E11.65 - Type 2 diabetes mellitus with hyperglycemia, E78.9 - Disorder of lipoprotein metabolism, unspecified, F79 - Unspecified intellectual disabilities, K21.9 - Gastro-esophageal reflux disease without esophagitis, Z00.01 - Encounter for general adult medical examination with abnormal findings, Z59.3 - Problems related to living in residential institution Influenza [id number] Immunization Today Z23 - Encounter for immunization Complete Blood Count Auto Diff Today E11.42 - Type 2 diabetes mellitus with diabetic polyneuropathy, E11.65 - Type 2 diabetes mellitus with hyperglycemia, E78.9 - Disorder of lipoprotein metabolism, unspecified, F79 - Unspecified intellectual disabilities, K21.9 - Gastro-esophageal reflux disease without esophagitis, Z00.01 - Encounter for general adult medical examination with abnormal findings LDL Cholesterol Direct Today E11.42 - Type 2 diabetes mellitus with diabetic polyneuropathy, E11.65 - Type 2 diabetes mellitus with hyperglycemia, E78.9 - Disorder of lipoprotein metabolism, unspecified, F79 - Unspecified intellectual disabilities, K21.9 - Gastro-esophageal reflux disease without esophagitis, Z00.01 - Encounter for general adult medical examination with abnormal findings, Z59.3 - Problems related to living in residential institution Hemoglobin A1c Today E11.42 - Type 2 diabetes mellitus with diabetic polyneuropathy, E11.65 - Type 2 diabetes mellitus with hyperglycemia, E78.9 - Disorder of lipoprotein metabolism, unspecified, F79 - Unspecified intellectual disabilities, K21.9 - Gastro-esophageal reflux disease without esophagitis, Z00.01 - Encounter for general adult medical examination with abnormal findings, Z59.3 - Problems related to living in residential institution Referrals 2 Gastroenterology Referral Z12.11 - Encounter for screening for malignant neoplasm of colon Coding Level of Care Code Est Pt [facility] Care [id number]) Diagnoses Encounter for general adult medical examination with abnormal findings Z00.01 Uncontrolled type 2 diabetes mellitus with hyperglycemia E11.65 Diabetes mellitus type: type 2 Glycemic state: with hyperglycemia Type 2 diabetes mellitus with diabetic polyneuropathy, with long-term current use of insulin E11.42; Z79.4 Diabetes mellitus senior living insulin use: with dedicated intermodal truck driver use Lipid disorder E78.9 Chronic GERD K21.9 Intellectual disability F79 Lives in adult foster home Z59.3 Colon cancer screening Z12.11 Skin excoriation T14.8XXA
== END 2022-12-26 10:42 | disposition home or self-care (01) ==
PROVIDERS: Visit Provider Internal Medicine
DX: Z00.01 Encounter for general adult medical examination with abnormal findings (principal); E11.65 Type 2 diabetes mellitus with hyperglycemia; E11.42 Type 2 diabetes mellitus with diabetic polyneuropathy; Z79.4 Long term (current) use of insulin; E78.9 Disorder of lipoprotein metabolism, unspecified; K21.9 Gastro-esophageal reflux disease without esophagitis; Z23 Encounter for immunization; F79 Unspecified intellectual disabilities; Z12.11 Encounter for screening for malignant neoplasm of colon; T14.8XXA Other injury of unspecified body region, initial encounter
CPT/HCPCS: 90471; 90686; 99396

== ENCOUNTER 2022-12-26 10:40 | Outpatient (REF) | payer MEDICARE, MEDICAID, SELFPAY ==
[2022-12-26 13:12] LABS: MANUAL DIFF FLAG NO
[2022-12-26 13:32] LABS: Basophils Absolute Auto 0.1 X10*3/uL (0.0-0.2); Basophils Percent Auto 0.7 % (0-2); Eosinophils Absolute Auto 0.1 X10*3/uL (0.0-0.4); Eosinophils Percent Auto 0.7 % (0-4); Hematocrit 43.4 % (42.0-52.0); Hemoglobin 14.4 g/dl (14.0-18.0); Imm Gran Abs Auto 0.07 X10*3/uL (0.00-0.03); Imm Gran Pct Auto 0.6 % (0.0-0.4); Lymphocytes Percent Auto 23.3 % (20-40); Mean Corpuscular HGB Conc 33.2 g/dl (31.0-36.0); Mean Corpuscular Hemoglobin 32.3 pg (27.0-33.0); Mean Corpuscular Volume 97.3 fL (80.0-98.0); Mean Platelet Volume 11.6 fL (9.4-12.4); Monocytes Absolute Auto 1.1 X10*3/uL (0.1-1.2); Monocytes Percent Auto 8.3 % (2-11); Neutrophils Absolute Auto 8.5 x10*3/uL (2.0-8.3); Neutrophils Percent Auto 66.4 % (45-73); Platelet Count 206 X10*3/uL (160-400); Red Blood Count 4.46 X10*6/uL (4.60-5.80); Red Cell Distribution Width 13.8 % (11.0-16.0); White Blood Count 12.7 X10*3/uL (4.8-10.8)
[2022-12-26 13:45] LABS: Estimated Average Glucose 203 mg/dL; Hemoglobin A1c % 8.7 % (<6.0)
[2022-12-26 13:59] LABS: Alanine Aminotransferase 9 U/L (0-40); Anion Gap 12 (12-20); Aspartate Amino Transferase 14 U/L (5-37); Bilirubin Total 0.2 mg/dL (0.0-1.0); Blood Urea Nitrogen 24 mg/dL (9-16); Calcium 9.2 mg/dL (8.4-10.2); Carbon Dioxide 29 mmol/L (22-29); Chloride 101 mmol/L (96-108); Estimated Glomerular Filt Rate > 60; Glucose Random 375 mg/dL (60-115); Potassium 4.2 mmol/L (3.3-5.1); Sodium 138 mmol/L (135-145); Total Protein 7.1 g/dL (6.5-8.0)
[2022-12-26 14:00] LABS: Albumin Level 3.7 g/dL (3.5-5.0); Alkaline Phosphatase 122 U/L (39-117)
[2022-12-26 14:12] LABS: Creatinine Urine 26.43 mg/dL; Microalbumin Urine < 5.0 mg/L
[2022-12-27 12:44] LABS: LDL Cholesterol Direct 118 mg/dL (<100)
== END 2022-12-26 10:41 | disposition home or self-care (01) ==
LOC: HO.HMGCLDS 10:40
PROVIDERS: PCP Internal Medicine; Visit Provider Internal Medicine
DX: Z00.01 Encounter for general adult medical examination with abnormal findings (principal); E11.65 Type 2 diabetes mellitus with hyperglycemia; E11.42 Type 2 diabetes mellitus with diabetic polyneuropathy; E78.9 Disorder of lipoprotein metabolism, unspecified; K21.9 Gastro-esophageal reflux disease without esophagitis; F79 Unspecified intellectual disabilities
CPT/HCPCS: 36415; 80053; 82043; 82570; 83036; 83721; 85025

== ENCOUNTER 2023-01-05 10:10 | Outpatient (AMB) | payer MEDICARE, MEDICAID, SELFPAY ==
[2023-01-05 10:12] VITALS: BP 124/66; PULSE 99; BMI 28.6
--- NOTE | 2023-01-05 10:12 | MHC.OFFVIS ---
Intake Vital Signs 01/05/23 10:12 Height 5 ft 6 in Weight 177 lb 4.026 oz BMI 28.6 BP 124/66 Blood Pressure Location Lt brachial Position Sitting Pulse 99 Pulse Source Pulse Oximeter Intake Visit Reasons: f/u Type 2 DM Intake Note: Patient present today to follow up on Type 2 Diabetes Mellitus. 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 Required: No Accompanied by: Other Relationship Allergies No Known Allergies Allergy (Verified 01/05/23 10:24) Medication List - Last Reconciled 01/05/23 by Juan Valdez MD acetaminophen 325 mg PO Q6H PRN atorvastatin 40 mg PO BEDTIME blood sugar diagnostic ([employer] No Coding strips) Tests 4X/day blood-glucose meter ([employer] Autocode Meter kit) Tests 4X/day blood-glucose sensor (TitanFile Raúl 3 Sensor device) As directed change every 14 days clonidine HCl 0.1 mg PO TID divalproex mg PO dulaglutide (Trulicity) 4.5 mg (0.5 mL) subcut QWEEK empagliflozin (Jardiance) 10 mg PO QAM hydroxyzine pamoate (Vistaril) 50 mg PO BEDTIME lancets (Accu-Chek Softclix Lancets) As directed lancets (Prodigy Lancets) tests 4/day latex gloves (Latex Gloves, Medium) As directed lisinopril 2.5 mg PO DAILY metformin 1,000 mg PO BID omeprazole 20 mg PO QAM 90 days risperidone 3 mg PO BID HPI HPI Comments History of Present Illness Details Patient is 52 year old male with DM type 2 diagnosed for an unknown amount of time who presents for management of diabetes. Patient was last seen on 08/14/2021 by Katy Leavitt NP Past medical history: Dm2, HLD, schizophrenia Micro and macrovascular complications: neuropathy Diabetes medications: Trulicity 4.5 mg/week, Jardiance 10mg, metformin 500 2 pills BID, pioglitazone 15mg not taking . Professional sensors shows average glucose to be 226 with G mi of 8.7% and variability 25.5%. He is in target range 24% of the time with hyperglycemia 76% of the time and no hypoglycemia. Pattern shows persistent hyperglycemia with spikes in blood sugar after breakfast and after dinner Symptoms reported: denies numbness, tingling, cramping in lower extremities Hypoglycemia: denies Hyperglycemia: + urinary frequency, +polydypsia Exercise: walks 30 minutes or more a few times a day Eye exam: needs to make appt - has appt 02/13/2023 Laboratory Tests 03/20/21 08:34 Hgb A1c (Clinic) 9.9 H 12/07/20 12/07/20 12/07/20 10:58 10:58 10:58 Creatinine 0.86 Estimated GFR > 60 Hemoglobin A1c % 9.0 LDL Cholesterol Di rect 75 TSH 1.72 Microalb/Creat Rat io 12/07/20 10:58 Creatinine Estimated GFR Hemoglobin A1c % LDL Cholesterol Di rect TSH Microalb/Creat Rat io 19.7 PFSH Medical History Type 2 diabetes mellitus with diabetic polyneuropathy DM2 (diabetes mellitus, type 2) Schizophrenia Hyperlipidemia LDL goal <100 Uncontrolled diabetes mellitus Chronic GERD Lipid disorder Surgical History History of back surgery History of knee surgery Hernia History of colonoscopy Family History Father Colon cancer Mother No problems noted. Brother No problems noted. Sister No problems noted. Social History Household Members: Other Household Members Other:: Shared living - Service Net Housing Housing: Assisted Living Facility (service net ) Alcohol intake: never Patient Tobacco Use Status: Current everyday Tobacco user Cigarette Packs Per Day: 1 e-Cigarette/Vaping Use: Never Used Current occupational status: disabled Cognitive needs: No Hearing needs: No Vision needs: Yes Physical Exam Absence of Cushingoid features. Absence of acromegalic features. Neck exam reveals nl size thyroid about 15 gms. No thyroid nodules palpable. No carotid bruits present. Lungs CTA. Heart S1 S2, Reg R/R. No M/R/ G. Skin exam reveals absence of vitiligo or acanthosis nigricans. Abdominal exam reveals Soft NT/ND with NA BS. No organomegaly present. Neck Other: . Extrem Other: Visual exam of foot performed. No ulcerations or open lesions. No onchomycosis, no callouses.Pulses 2 + distally Sensation intact to monofilament exam. Vibratory sensation sensed is intact with 128 Hz tuning fork Assessment & Plan Assessment & Plan (1) Uncontrolled diabetes mellitus: Code(s): E11.65 - Type 2 diabetes mellitus with hyperglycemia Qualifiers: Diabetes mellitus type: type 2 Glycemic state: with hyperglycemia Qualified Code(s): E11.65 - Type 2 diabetes mellitus with hyperglycemia Plan: This is a 52-year-old white male with a history of type 2 diabetes being managed with Trulicity, Jardiance, metformin with poor glycemic control and known microvascular complications namely neuropathy. Plan is to talk to the patient about starting insulin. With start 20 units of Lantus as well as 7 units Humalog before breakfast and before dinner. Will re-up date request for sensor Raúl 2 now the patient has been started insulin. He will be with the nurse today to learn insulin administration and follow-up with the family life educator in 2 weeks Medications: New insulin lispro (Humalog KwikPen (U-100) Insulin) 7 units before breakfast and dinner 7 units (0.07 mL) subcut BID 15 mL 5RF lisinopril 2.5 mg PO DAILY 30 tabs 5RF insulin glargine (Lantus Solostar U-100 Insulin) 20 units (0.2 mL) subcut DAILY 15 mL 0RF pen needle, diabetic (Comfort EZ Pen [place]) As directed injects 3 X/day 100 ea 5RF Coding Level of Care Code Est Pt Level 4 (05969) Diagnoses Uncontrolled type 2 diabetes mellitus with hyperglycemia E11.65 Diabetes mellitus type: type 2 Glycemic state: with hyperglycemia
[2023-01-05 10:25] LABS: Glucose, Whole Blood 331 mg/dL (60-115)
--- NOTE | 2023-01-05 10:46 | AM.OFFVISNUR ---
Intake Vital Signs 01/05/23 10:12 Height 5 ft 6 in Weight 177 lb 4.026 oz BMI 28.6 BP 124/66 Blood Pressure Location Lt brachial Position Sitting Pulse 99 Pulse Source Pulse Oximeter Intake Visit Reasons: f/u Type 2 DM Chicken Catcher Required: No Allergies No Known Allergies Allergy (Verified 01/05/23 10:24) Medication List - Last Reconciled 01/05/23 by Juan Valdez MD acetaminophen 325 mg PO Q6H PRN atorvastatin 40 mg PO BEDTIME blood sugar diagnostic ([employer] No Coding strips) Tests 4X/day blood-glucose meter ([employer] Autocode Meter kit) Tests 4X/day blood-glucose sensor ([employer] Raúl 3 Sensor device) As directed change every 14 days clonidine HCl 0.1 mg PO TID divalproex mg PO dulaglutide (Trulicity) 4.5 mg (0.5 mL) subcut QWEEK empagliflozin (Jardiance) 10 mg PO QAM hydroxyzine pamoate (Vistaril) 50 mg PO BEDTIME lancets (Accu-Chek Softclix Lancets) As directed lancets (Prodigy Lancets) tests 4/day latex gloves (Latex Gloves, Medium) As directed lisinopril 2.5 mg PO DAILY metformin 1,000 mg PO BID omeprazole 20 mg PO QAM 90 days risperidone 3 mg PO BID Do you need a note to return to daycare/school/sports/work: No Nursing Note Per Dr. Valdez, patient is initiating Lantus 20 units QD and Humalog 6 units before breakfast and dinner. I met with the patient, Piotr, and his caregivers and went over the importance of taking the Lantus at the same time every day and taking Humalog 15 minutes prior to breakfast/dinner. We discussed proper cleansing of the skin prior to injection. We went over how to put a needle on the pens, how to dial the correct dose, and how to inject. We also discussed the proper disposal of sharps after injection. Patient will follow up with our early childhood educator aide in the next couple weeks to check-in on how the new regimen is working and initiate a CGM. Patient and caregivers stated they did not have any questions at this time, but will call the office if they think of anything. Coding Diagnoses Uncontrolled type 2 diabetes mellitus with hyperglycemia E11.65 Diabetes mellitus type: type 2 Glycemic state: with hyperglycemia Assessment & Plan Assessment & Plan (1) Uncontrolled diabetes mellitus: Code(s): E11.65 - Type 2 diabetes mellitus with hyperglycemia Qualifiers: Diabetes mellitus type: type 2 Glycemic state: with hyperglycemia Qualified Code(s): E11.65 - Type 2 diabetes mellitus with hyperglycemia Plan Per Dr. Valdez, patient will follow up with Piece Cutter. Medications: New insulin lispro (Humalog KwikPen (U-100) Insulin) 7 units before breakfast and dinner 7 units (0.07 mL) subcut BID 15 mL 5RF lisinopril 2.5 mg PO DAILY 30 tabs 5RF insulin glargine (Lantus Solostar U-100 Insulin) 20 units (0.2 mL) subcut DAILY 15 mL 0RF pen needle, diabetic (Comfort EZ Pen [place]) As directed injects 3 X/day 100 ea 5RF
== END 2023-01-05 10:57 | disposition home or self-care (01) ==
PROVIDERS: PCP Internal Medicine; Visit Provider Internal Medicine Endocrinology, Diabetes & Metabolism
DX: E11.65 Type 2 diabetes mellitus with hyperglycemia (principal)
CPT/HCPCS: 99214

== ENCOUNTER → 2023-01-05 10:10 | Outpatient (BNVA) | payer MEDICARE, MEDICAID, SELFPAY | PROVIDERS: PCP Internal Medicine; Visit Provider Internal Medicine Endocrinology, Diabetes & Metabolism | DX: E11.65 Type 2 diabetes mellitus with hyperglycemia (principal); E11.40 Type 2 diabetes mellitus with diabetic neuropathy, unspecified; E78.5 Hyperlipidemia, unspecified; Z79.85 Long-term (current) use of injectable non-insulin antidiabetic drugs; Z79.84 Long term (current) use of oral hypoglycemic drugs | CPT/HCPCS: 82947; 99212 ==

== ENCOUNTER 2023-01-12 11:14 | Outpatient (AMB) | payer MEDICARE, MEDICAID, SELFPAY ==
--- NOTE | 2023-01-12 11:41 | MHC.AMDMED ---
Intake Intake Visit Reasons: DM Health Administration Teacher Required: No Accompanied by: Other Relationship Allergies No Known Allergies Allergy (Verified 01/05/23 10:24) [facility] Comprehensive Diabetes Asmnt Most Recent Diabetes Results: Microalb/Creat Ratio TNP 12/26/22 Creatinine 0.87 mg/dL (0.5-1.4) 12/26/22 Blood Urea Nitrogen 24 mg/dL (9-16) H 12/26/22 Sodium 138 mmol/L (135-145) 12/26/22 Potassium 4.2 mmol/L (3.3-5.1) 12/26/22 Chloride 101 mmol/L (96-108) 12/26/22 Carbon Dioxide 29 mmol/L (22-29) 12/26/22 Calcium 9.2 mg/dL (8.4-10.2) 12/26/22 AST 14 U/L (5-37) 12/26/22 ALT 9 U/L (0-40) 12/26/22 Total Protein 7.1 g/dL (6.5-8.0) 12/26/22 Albumin 3.7 g/dL (3.5-5.0) 12/26/22 [facility] Medical History Type 2 diabetes mellitus with diabetic polyneuropathy DM2 (diabetes mellitus, type 2) Schizophrenia Hyperlipidemia LDL goal <100 Uncontrolled diabetes mellitus Chronic GERD Lipid disorder Surgical History History of back surgery History of knee surgery Hernia History of colonoscopy Family History Father Colon cancer Mother No problems noted. Brother No problems noted. Sister No problems noted. Household Members: Other Household Members Other:: Shared living - Service Net Housing Housing: Assisted Living Facility (service net ) Alcohol intake: never Patient Tobacco Use Status: Current everyday Tobacco user Cigarette Packs Per Day: 1 e-Cigarette/Vaping Use: Never Used Current occupational status: disabled Cognitive needs: No Hearing needs: No Vision needs: Yes Assessment & Plan Assessment & Plan (1) Uncontrolled diabetes mellitus: Code(s): E11.65 - Type 2 diabetes mellitus with hyperglycemia Qualifiers: Diabetes mellitus type: type 2 Glycemic state: with hyperglycemia Qualified Code(s): E11.65 - Type 2 diabetes mellitus with hyperglycemia Plan: Patient has not started insulin injections. Prescriptions for Lantus and Humalog sent to patient's pharmacy, Lantus and Humalog not on patient's formulary. Patient will not be receiving Basaglar 20 units daily NovoLog 7 units before breakfast and lunch Patient's poiser balance requested prescription for gloves and alcohol pads be sent to pharmacy, message sent to Dr. Valdez send prescriptions DIABETES PROBLEMS HOMECARE INSTRUCTIONS Hypo instructions ? When first signs of insulin reaction occur, immediately drink orange juice or cola, or suck on a sugar cube, but only if the person is conscious. ? Person with diabetes should continue taking insulin when ill, unless he/she is not able to eat.? Regularly check blood sugar or urine for sugar and acetone during illness. ? Exercise regularly. ? Pay special attention to the feet.? Avoid cuts, sores, blisters, ill-fitting shoes, or going barefoot.? Promptly treat injuries to the feet. ? Take medications as directed by physician. ? Drink extra water or noncaffeinated, nonsugared drinks to prevented hydration. Signs and symptoms of low blood sugar (happen quickly) Each person's reaction to low blood sugar is different. Learn your own signs and symptoms of when your blood sugar is low. Taking time to write these symptoms down may help you learn your own symptoms of when your blood sugar is low. From milder, more common indicators to most severe, signs and symptoms of low blood sugar include: Feeling shaky Being nervous or anxious Sweating, chills and clamminess Irritability or impatience Confusion Fast heartbeat Feeling lightheaded or dizzy Hunger Nausea Color draining from the skin (pallor) Feeling Sleepy Feeling weak or having no energy Blurred/impaired vision Tingling or numbness in the lips, tongue, or cheeks Headaches Coordination problems, clumsiness Hypoglycemia or blood glucose under 70 use the rule of 15's: Hypoglycemic handout given Patient Instructions: Take Basaglar 20 units Daily Novolog 7 units, 15 minutes before breakfast and supper DIABETES PROBLEMS HOMECARE INSTRUCTIONS Hypo instructions ? When first signs of insulin reaction occur, immediately drink orange juice or cola, or suck on a sugar cube, but only if the person is conscious. ? Person with diabetes should continue taking insulin when ill, unless he/she is not able to eat.? Regularly check blood sugar or urine for sugar and acetone during illness. ? Exercise regularly. ? Pay special attention to the feet.? Avoid cuts, sores, blisters, ill-fitting shoes, or going barefoot.? Promptly treat injuries to the feet. ? Take medications as directed by physician. ? Drink extra water or noncaffeinated, nonsugared drinks to prevented hydration. Signs and symptoms of low blood sugar (happen quickly) Each person's reaction to low blood sugar is different. Learn your own signs and symptoms of when your blood sugar is low. Taking time to write these symptoms down may help you learn your own symptoms of when your blood sugar is low. From milder, more common indicators to most severe, signs and symptoms of low blood sugar include: Feeling shaky Being nervous or anxious Sweating, chills and clamminess Irritability or impatience Confusion Fast heartbeat Feeling lightheaded or dizzy Hunger Nausea Color draining from the skin (pallor) Feeling Sleepy Feeling weak or having no energy Blurred/impaired vision Tingling or numbness in the lips, tongue, or cheeks Headaches Coordination problems, clumsiness Hypoglycemia or blood glucose under 70 mg/d/L use the rule of 15's: If you have your blood glucose meter test your blood glucose, if you do not have your meter still follow below instruction: Keep quick-sugar foods with you at all times.? Take 15 grams of fast acting carbohydrates. Examples are 4 ounces of fruit juice or regular soda pop, 8 ounces fat-free milk, 1 tablespoon of table sugar, honey or corn syrup, jam, one miniature box of raisins, 7-8 gumdrops or Life Savers candy, 4 glucose tablets, and glucose gel.? Retest blood glucose in 15 minutes, if blood glucose is still under 80 mg/dL repeat rule of 15's. If blood glucose is under 50, take 30 grams of fast acting carbohydrates If you are having hypoglycemia, or insulin reaction, more that a few times a week, call MD or certified breastfeeding educator F/U BG check Follow up with Nurse Educator in 2 weeks Coding Level of Care Code Est Pt Level 1 (90467) Diagnoses Uncontrolled type 2 diabetes mellitus with hyperglycemia E11.65 Diabetes mellitus type: type 2 Glycemic state: with hyperglycemia
== END 2023-01-12 11:54 | disposition home or self-care (01) ==
PROVIDERS: PCP Internal Medicine; Visit Provider Registered Nurse Diabetes Educator
DX: E11.65 Type 2 diabetes mellitus with hyperglycemia (principal)

== ENCOUNTER → 2023-01-12 11:14 | Outpatient (BNVA) | payer MEDICARE, MEDICAID, SELFPAY | PROVIDERS: PCP Internal Medicine; Visit Provider Registered Nurse Diabetes Educator | DX: E11.65 Type 2 diabetes mellitus with hyperglycemia (principal); E11.42 Type 2 diabetes mellitus with diabetic polyneuropathy; E78.9 Disorder of lipoprotein metabolism, unspecified; F17.210 Nicotine dependence, cigarettes, uncomplicated | CPT/HCPCS: 99211 ==

== ENCOUNTER 2023-01-29 09:53 | Outpatient (AMB) | payer MEDICARE, MEDICAID, SELFPAY ==
--- NOTE | 2023-01-29 10:16 | A.OFFVIS_ITS ---
Intake VS Expanded 01/29/23 10:16 Weight 167 lb 15.876 oz Intake Visit Reasons: f/u Type 2 DM/CONFIRMED Allergies No Known Allergies Allergy (Verified 01/05/23 10:24) HPI Nutrition Presentation Details Pt presents for MNT f/u for T2DM Pt reports doing well having balanced meals when at home, has 2 meals/d B: varies: whole wheat bread with scrambled eggs/delit turkey, glass of 2 %milk and a fruit or 1/2 c juice (other days otmeal with 2 % milk and nuts or pancakes and scrambled eggs and coffee with milk /diet sugar) D: mac and cheese and salad or rice/chicken and broccoli or pasta/meatballs and glass of milk snack : p.b crackers, milk or diet juice Pt reports having lunch provided by friends (fast food meal, pasta meals with bread, diet coke) \ fish : 1-2 /month dairy: lactaid (2 cups/day) fruits: 0-1/d salad 2 /wk when at home beverages: 64 oz/f : water/diet beverages, milk (lactose free) physical activity: daily life activities, reports walking a lot > 30 minutes daily Most Recent Diabetes Results: Microalb/Creat Ratio TNP 12/26/22 Creatinine 0.87 mg/dL (0.5-1.4) 12/26/22 Blood Urea Nitrogen 24 mg/dL (9-16) H 12/26/22 Sodium 138 mmol/L (135-145) 12/26/22 Potassium 4.2 mmol/L (3.3-5.1) 12/26/22 Chloride 101 mmol/L (96-108) 12/26/22 Carbon Dioxide 29 mmol/L (22-29) 12/26/22 Calcium 9.2 mg/dL (8.4-10.2) 12/26/22 AST 14 U/L (5-37) 12/26/22 ALT 9 U/L (0-40) 12/26/22 Total Protein 7.1 g/dL (6.5-8.0) 12/26/22 Albumin 3.7 g/dL (3.5-5.0) 12/26/22 [facility] Medical History Type 2 diabetes mellitus with diabetic polyneuropathy DM2 (diabetes mellitus, type 2) Schizophrenia Hyperlipidemia LDL goal <100 Uncontrolled diabetes mellitus Chronic GERD Lipid disorder Surgical History History of back surgery History of knee surgery Hernia History of colonoscopy Family History Father Colon cancer Mother No problems noted. Brother No problems noted. Sister No problems noted. Social History Household Members: Other Household Members Other:: Shared living - Service Net Housing Housing: Assisted Living Facility (service net ) Alcohol intake: never Patient Tobacco Use Status: Current everyday Tobacco user Cigarette Packs Per Day: 1 e-Cigarette/Vaping Use: Never Used Current occupational status: disabled Cognitive needs: No Hearing needs: No Vision needs: Yes Assessment & Plan Assessment & Plan (1) Uncontrolled diabetes mellitus: Code(s): E11.65 - Type 2 diabetes mellitus with hyperglycemia Qualifiers: Diabetes mellitus type: type 2 Glycemic state: with hyperglycemia Qualified Code(s): E11.65 - Type 2 diabetes mellitus with hyperglycemia Plan: wt 76 kg Est kcal needs as per MSJ: 2200 (40% carb, 30% protein/fat) Est fluid needs as per 30 ml/d: 2300 Est prot per day as per 1 g/kg bw: 76 Recommend fiber intake : 8-10 g per day and gradually increase to 25-28 g per day for women and 35-38 g for men or as tolerated Recommend sodium intake per day : less than 2000 mg Educated patient on: ( R = reviewed V = verbalizes understanding N/R = needs review N/A = not applicable * Food sources of carbohydrate, adequate serving sizes and its role in various health conditions: R * Differences between complex carbohydrates a simple carbohydrates, role of fiber in diet: NR * Differences between types of fats and role in diet (mono on saturated fat fatty acids, saturated fatty acids, trans fats): R , basic low fat * Food sources of sodium in salt and healthy modifications for heart health in kidney health: NR * Healthy plate method concept: R * Physical activity: Benefits a precaution: R * Hypoglycemia protocol (rule of 15): NR * Dietary prevention of Hyperglycemia: R Patient Instructions: Include fish at least 1-2 times a week When eating out choose water as preferred beverages, opt for sandwiches - see list of options as reference Choose beverages with no carbohydrates - read the food label Coding Level of Care Code Nutr Indiv Subseq (26278) Diagnoses Uncontrolled type 2 diabetes mellitus with hyperglycemia E11.65 Diabetes mellitus type: type 2 Glycemic state: with hyperglycemia Time Spent (min) 10
== END 2023-01-29 10:34 | disposition home or self-care (01) ==
PROVIDERS: PCP Internal Medicine; Visit Provider Dietitian, Registered
DX: E11.65 Type 2 diabetes mellitus with hyperglycemia (principal)

== ENCOUNTER → 2023-01-29 09:53 | Outpatient (BNVA) | payer MEDICARE, MEDICAID, SELFPAY | PROVIDERS: PCP Internal Medicine; Visit Provider Dietitian, Registered | DX: E11.65 Type 2 diabetes mellitus with hyperglycemia (principal) | CPT/HCPCS: 97803 ==

== ENCOUNTER → 2023-02-03 11:30 | Outpatient (BNVA) | payer MEDICARE, MEDICAID, SELFPAY | PROVIDERS: PCP Internal Medicine; Visit Provider Registered Nurse Diabetes Educator | DX: E11.42 Type 2 diabetes mellitus with diabetic polyneuropathy (principal); Z79.4 Long term (current) use of insulin | CPT/HCPCS: 99211 ==

== ENCOUNTER 2023-03-13 10:08 | Outpatient (AMB) | payer MEDICARE, MEDICAID, SELFPAY ==
--- NOTE | 2023-03-13 10:21 | A.OFFVIS_ITS ---
Intake Intake Visit Reasons: T2DM Allergies No Known Allergies Allergy (Verified 01/05/23 10:24) [facility] Comprehensive Diabetes Asmnt Most Recent Diabetes Results: No Data to Display [facility] Medical History Type 2 diabetes mellitus with diabetic polyneuropathy DM2 (diabetes mellitus, type 2) Schizophrenia Hyperlipidemia LDL goal <100 Uncontrolled diabetes mellitus Chronic GERD Lipid disorder Surgical History History of back surgery History of knee surgery Hernia History of colonoscopy Family History Father Colon cancer Mother No problems noted. Brother No problems noted. Sister No problems noted. Social History Household Members: Other Household Members Other:: Shared living - Service Net Housing Housing: Assisted Living Facility (service net ) Alcohol intake: never Patient Tobacco Use Status: Current everyday Tobacco user Cigarette Packs Per Day: 1 e-Cigarette/Vaping Use: Never Used Current occupational status: disabled Cognitive needs: No Hearing needs: No Vision needs: Yes Assessment & Plan Assessment & Plan (1) Type 2 diabetes mellitus with diabetic polyneuropathy: Code(s): E11.42 - Type 2 diabetes mellitus with diabetic polyneuropathy Qualifiers: Diabetes mellitus intermediate designer insulin use: with custodial use Qualified Code(s): E11.42 - Type 2 diabetes mellitus with diabetic polyneuropathy; Z79.4 - penitentiary (current) use of insulin Plan: Personal Continuous Glucose Monitor: Patients CGM information reviewed Reviewed patient's sensor data: Hypoglycemia: ? 2% Hyperglycemia:? 12% Time in Range:? 86% Average glucose for the last 2 weeks 129? mg/dL After review of patient's Raúl data it appears that he is currently having episodes of postprandial hypoglycemia Reviewed with [place] caregiver Adriana, how to treat any glucose under 70 mg/dL with rule of 15s Handout give Patient is currently taking Basaglar 20 units daily Humalog 7 units prior to meal Recommended to reduce Humalog to 5 units prior to meals to reduce episodes of hypoglycemia Reviewed how to interpret trend arrows Reminded patient that to check finger sticks if symptoms do not match sensor reading. Discussed lag time between finger stick and sensor data.? Patient able to insert sensor independently at home without issue.? Patient Instructions: Reduce Humalog from 7 units before meals to 5 units before meals If low glucose persists please call for further adjustment in insulin Follow-up with Diabetes Education nurse in 6 months Coding Level of Care Code Est Pt Level 1 (71025) Diagnoses Type 2 diabetes mellitus with diabetic polyneuropathy, with long-term current use of insulin E11.42; Z79.4 Diabetes mellitus intermediate designer insulin use: with custodial use
== END 2023-03-13 10:25 | disposition home or self-care (01) ==
PROVIDERS: PCP Internal Medicine; Visit Provider Registered Nurse Diabetes Educator
DX: E11.42 Type 2 diabetes mellitus with diabetic polyneuropathy (principal); Z79.4 Long term (current) use of insulin

== ENCOUNTER → 2023-03-13 10:08 | Outpatient (BNVA) | payer MEDICARE, MEDICAID, SELFPAY | PROVIDERS: PCP Internal Medicine; Visit Provider Registered Nurse Diabetes Educator | DX: E11.42 Type 2 diabetes mellitus with diabetic polyneuropathy (principal); Z79.4 Long term (current) use of insulin | CPT/HCPCS: 99211 ==

== ENCOUNTER 2023-03-26 13:26 | Outpatient (AMB) | payer MEDICARE, MEDICAID, SELFPAY ==
[2023-03-26 13:35] VITALS: BMI 26.4
--- NOTE | 2023-03-26 13:35 | A.OFFVIS_ITS ---
Intake VS Expanded 03/26/23 13:35 Height 5 ft 6 in Weight 163 lb 9.328 oz BMI 26.4 Intake Visit Reasons: T2DM/CONFIRMED Allergies No Known Allergies Allergy (Verified 01/05/23 10:24) HPI Nutrition Presentation Details Pt presents for MNT follow up for T2DM Pt is accompanied by home care provider during this appointment. Home care provider reports switching to lactose free foods when at home and Pt seems to tolerate lactose free foods better with less GI symptoms (diarrhea). Patient reports choosing sandwiches when eating out and also choosing diet beverages or Light lemonade. No questions or concerns expressed at this time. Home care provider reports that sometimes, once a week, patient may have low blood glucose post dinner. Hypoglycemia protocol: Patient verbalized treatment for low blood sugars, and v erbalizes low blood sugar numbers Most Recent Diabetes Results: No Data to Display [facility] Medical History Type 2 diabetes mellitus with diabetic polyneuropathy DM2 (diabetes mellitus, type 2) Schizophrenia Hyperlipidemia LDL goal <100 Uncontrolled diabetes mellitus Chronic GERD Lipid disorder Surgical History History of back surgery History of knee surgery Hernia History of colonoscopy Family History Father Colon cancer Mother No problems noted. Brother No problems noted. Sister No problems noted. Social History Household Members: Other Household Members Other:: Shared living - Service Net Housing Housing: Assisted Living Facility (service net ) Alcohol intake: never Patient Tobacco Use Status: Current everyday Tobacco user Cigarette Packs Per Day: 1 e-Cigarette/Vaping Use: Never Used Current occupational status: disabled Cognitive needs: No Hearing needs: No Vision needs: Yes Assessment & Plan Assessment & Plan (1) Uncontrolled diabetes mellitus: Comment: Recommend monitoring labs for vitamins B deficiency related to history of type 2 DM with neuropathy and long-term history treatment with metformin Code(s): E11.65 - Type 2 diabetes mellitus with hyperglycemia Qualifiers: Diabetes mellitus type: type 2 Glycemic state: with hyperglycemia Qualified Code(s): E11.65 - Type 2 diabetes mellitus with hyperglycemia Plan: wt 76 kg Est kcal needs as per MSJ: 2200 (40% carb, 30% protein/fat) Est fluid needs as per 30 ml/d: 2300 Est prot per day as per 1 g/kg bw: 76 Recommend fiber intake : 8-10 g per day and gradually increase to 25-28 g per day for women and 35-38 g for men or as tolerated Recommend sodium intake per day : less than 2000 mg Educated patient on: ( R = reviewed V = verbalizes understanding N/R = needs review N/A = not applicable * Food sources of carbohydrate, adequate serving sizes and its role in various health conditions: R * Differences between complex carbohydrates a simple carbohydrates, role of fiber in diet: NR * Differences between types of fats and role in diet (mono on saturated fat fatty acids, saturated fatty acids, trans fats): R , basic low fat * Food sources of sodium in salt and healthy modifications for heart health in kidney health: NR * Healthy plate method concept: R * Physical activity: Benefits a precaution: R * Hypoglycemia protocol (rule of 15): R, V * Dietary prevention of Hyperglycemia: R Patient Instructions: Continue following healthy plate method Provide a cup of lactose free milk at dinner to prevent hypoglycemia after dinn er Continue including foods with lean protein in combination with vitamin-C such as vegetables, fruits for better absorption of iron and B vitamins. Coding Level of Care Code Nutr Indiv Subseq (47975) Diagnoses Uncontrolled type 2 diabetes mellitus with hyperglycemia E11.65 Diabetes mellitus type: type 2 Glycemic state: with hyperglycemia Time Spent (min) 20
== END 2023-03-26 13:46 | disposition home or self-care (01) ==
PROVIDERS: PCP Internal Medicine; Visit Provider Dietitian, Registered
DX: E11.65 Type 2 diabetes mellitus with hyperglycemia (principal)

== ENCOUNTER → 2023-03-26 13:26 | Outpatient (BNVA) | payer MEDICARE, MEDICAID, SELFPAY | PROVIDERS: PCP Internal Medicine; Visit Provider Dietitian, Registered | DX: E11.65 Type 2 diabetes mellitus with hyperglycemia (principal) | CPT/HCPCS: 97803 ==

== ENCOUNTER 2023-06-26 10:36 | Outpatient (AMB) | payer MEDICARE, MEDICAID, SELFPAY ==
[2023-06-26 10:38] VITALS: BP 122/66; PULSE 87; O2SAT 99; BMI 27.7
--- NOTE | 2023-06-26 10:38 | MHC.PC.OV ---
Vital Signs 06/26/23 10:38 Height 5 ft 6 in Weight 171 lb 6 oz BMI 27.7 BP 122/66 Blood Pressure Location Lt brachial Position Sitting Pulse 87 Pulse Source Pulse Oximeter Pulse Oximetry (%) 99 Oxygen Delivery Method Room Air Intake Visit Reasons: 6 month follow up Allergies No Known Allergies Allergy (Verified 06/26/23 10:40) Medication List - Last Reconciled 06/26/23 by Mauro Zambrano MD acetaminophen 325 mg PO Q6H PRN alcohol swabs (Alcohol Wipes) 100 pad topical .4 x/day atorvastatin 40 mg PO BEDTIME Basaglar KwikPen U-100 Insulin (insulin glargine) 20 units (0.2 mL) subcut QAM NS blood sugar diagnostic ([employer] No Coding strips) Tests 4X/day blood-glucose meter ([employer] Autocode Meter kit) Tests 4X/day blood-glucose sensor ([employer] Raúl 3 Sensor device) As directed change every 14 days disposable gloves As directed divalproex mg PO dulaglutide (Trulicity) 4.5 mg (0.5 mL) subcut QWEEK empagliflozin (Jardiance) 10 mg PO QAM hydroxyzine pamoate (Vistaril) 50 mg PO BEDTIME insulin aspart (niacinamide) 100 unit/mL (3 mL) (Fiasp FlexTouch U-100 Insulin) 7 units subcut BID lancets (Accu-Chek Softclix Lancets) As directed lancets ([employer] Lancets) tests 4/day latex gloves (Latex Gloves, Medium) As directed lisinopril 2.5 mg PO DAILY metformin 1,000 mg PO BID omeprazole 20 mg PO QAM 90 days pen needle, diabetic (Comfort EZ Pen [place]) As directed injects 3 X/day pen needle, diabetic (BD Ultra-Fine Original Pen Needle) As directed risperidone 3 mg PO BID Tobacco use date assessed: 06/26/23 Dental Screening Dental Screen Date: 06/26/23 Did you have a dental visit in the last 12 months?: Yes Did you have a dental problem in the last 6 months where you did not have access to dental care?: No Was dental information given to patient?: Patient has dentist HPI 6 month follow up HPI Details Patient is a 53-year-old gentleman came in today for his regular six-month follow-up appointment Patient is diabetic: His hemoglobin A1c is 7.1, patient is seeing Dr. Valdez endocrinology and all diabetic medications are through his office Lipid disorder: Patient is taking atorvastatin 40 mg, he is due for labs order placed Patient suffers from schizophrenia and is under care of psychiatrist, taking medications through them and is doing well GERD is stable with omeprazole Patient lives with a foster family, 1 of the family member is here with the patient Patient himself offer no complaints today. He has appointment for physical exam in December [facility] Medical History Type 2 diabetes mellitus with diabetic polyneuropathy DM2 (diabetes mellitus, type 2) Schizophrenia Hyperlipidemia LDL goal <100 Uncontrolled diabetes mellitus Chronic GERD Lipid disorder Surgical History (Reviewed 06/26/23 @ 11: by Mauro Zambrano MD) History of back surgery History of knee surgery Hernia History of colonoscopy Family History (Reviewed 06/26/23 @ 11: by Mauro Zambrano MD) Father Colon cancer Mother No problems noted. Brother No problems noted. Sister No problems noted. Social History Household Members: Other Household Members Other:: Shared living - [facility] Housing Housing: Assisted Living Facility (service net ) Alcohol intake: never Patient Tobacco Use Status: Current everyday Tobacco user Cigarette Packs Per Day: 1 e-Cigarette/Vaping Use: Never Used Current occupational status: disabled Cognitive needs: No Hearing needs: No Vision needs: Yes Questionnaire PHQ-9 Over the last 2 weeks, how often have you been bothered by any of the following problems? 1. Little interest or pleasure in doing things: several days 2. Feeling down, depressed, or hopeless: not at all 3. Trouble falling or staying asleep, or sleeping too much: not at all 4. Feeling tired or having little energy: not at all 5. Poor appetite or overeating: not at all 6. Feeling bad about yourself - or that you are a failure or have let yourself or your family down: not at all 7. Trouble concentrating on things, such as reading the newspaper or watching television: not at all 8. Moving or speaking so slowly that other people could have noticed. Or the opposite - being so fidgety or restless that you have been moving around a lot more than usual: more than half the days 9. Thoughts that you would be better off or of hurting yourself in some way: not at all Total score: 3 Depression Screening Interpretation: Negative Depression Screening Done: Yes 35397 - PHQ-9 Billing: Yes Source: Developed by Drs. Juan Akins, Janice Sheets, Oscar Jolly and colleagues, with an educational jyotsna from [employer]. Thrive Questionnaire Date Thrive assessed: 06/26/23 I am a: Patient What is your living situation today?: I have a steady place to live Within the past 12 months, did the food you bought not last and you didn't have the money to get more?: Never true Within the past 12 months, did you worry whether your food would run out before you got money to buy more?: Never true Do you have trouble paying for medicines?: No Do you have trouble getting transportation to medical appointments?: No Do you have trouble paying your heating and electricity bill?: No Do you have trouble taking care of your child, family member or friend?: Yes Do you have trouble with day-to-day activities such as bathing, preparing meals, shopping, managing finances, etc.?: Yes Are you currently unemployed and looking for a job?: No Are you interested in more education?: No Please select the resources that you would like help with: None Currently or been in a relationship where the following occur: no concerns reported THRIVE Score: 0 AUDIT C Alcohol Use Questionnaire (AUDIT-C) 1. How often do you have a drink containing alcohol?: Never 3. How often do you have six or more drinks on one occasion?: Never Total Score: 0 Score Reviewed/Action Taken: Yes KENNETH-7 AMB Questionnaire KENNETH-7 Date KENNETH - 7 assessed: 09/12/22 Feeling nervous, anxious, or on edge: 0 = Not at all Not being able to stop or control worryin = Not at all Worrying too much about different things: 1 = Several days Trouble relaxin = Several days Being so restless that it is hard to sit still: 3 = Nearly every day Becoming easily annoyed or irritable: 3 = Nearly every day Feeling afraid as if something awful might happen: 0 = Not at all Total KENNETH-7 score (0-4 normal; 5-9 mild; 10-14 moderate; 15-21 severe): 8 Source: Developed by Drs. Juan Akins, Janice Sheets, Oscar Jolly and colleagues, with an educational jyotsna from [employer]. KENNETH-7 Assessment Billing KENNETH-7 Assessment Tool: KENNETH-7 Assessment 24687 Review of Systems Const Denies chills and Denies fever(s) ENT Denies epistaxis and Denies nasal discharge Card Denies chest pain Resp Denies chest congestion, Denies cough and Denies hemoptysis GI Denies diarrhea and Denies nausea Skin/Breast Denies rash Neuro Reports no additional complaints Psych Reports no additional complaints Endo Reports no additional complaints Physical exam (Primary Care) Vital Signs: Last Vital Signs Pulse 87 06/26/23 10:38 BP 122/66 06/26/23 10:38 Pulse Ox 99 06/26/23 10:38 Oxygen Delivery Method Room Air 06/26/23 10:38 BMI result Body Mass Index 27.7 Tobacco/Smoking Status: Tobacco use Status Tobacco use date assessed 06/26/23 06/26/23 10:43 Patient Tobacco Use Status Current everyday Tobacco 06/26/23 10:43 e-Cigarette/Vaping Use Never Used 06/26/23 10:43 PHQ-9: PHQ-9 Score PHQ-9: Total score 3 06/26/23 11:20 Depression Screening Interpretation: Negative Thrive Assessment: Date of Thrive Assessment Date Thrive assessed 06/26/23 06/26/23 11:20 Currently or been in a relationship where the following occur: no concerns reported Const General: cooperative, comfortable and no acute distress Orientation/consciousness: patient oriented x3 HENNH Head: Yes normocephalic Eyes General: appearance normal, both eyes and all related structures Neck Neck: Yes supple Resp Effort & Inspection: normal respiratory effort, no cough and no stridor Cardio Rhythm: regular rhythm Heart sounds: S1 normal heart sound present and S2 normal heart sound present Skin General skin exam: turgor normal Neuro General: patient oriented x3, tone normal and moves all extremities Extrem Right lower extremity: no edema Left lower extremity: no edema Results AMB Hemoglobin A1c AMB Hemoglobin A1c 7.1 % Last Edit by Power Don MA on 06/26/23 10:58 Results Reviewed Results Reviewed: Laboratory Last Values Hgb A1c (Clinic) 7.1 % (4.0-6.0) H 06/26/23 10:57 Assessment and Plan Assessment & Plan (1) Diabetes 1.5, managed as type 2: Code(s): E13.9 - Other specified diabetes mellitus without complications (2) Lipid disorder: Code(s): E78.9 - Disorder of lipoprotein metabolism, unspecified (3) Chronic GERD: Code(s): K21.9 - Gastro-esophageal reflux disease without esophagitis (4) Schizophrenia: Code(s): F20.9 - Schizophrenia, unspecified Qualifiers: Schizophrenia type: unspecified Qualified Code(s): F20.9 - Schizophrenia, unspecified (5) Intellectual disability: Code(s): F79 - Unspecified intellectual disabilities (6) Lives in adult foster home: Code(s): Z59.3 - Problems related to living in residential institution Plan Patient is a 53-year-old gentleman came in today for his regular six-month follow-up appointment Patient is diabetic: His hemoglobin A1c is 7.1, patient is seeing Dr. Valdez endocrinology and all diabetic medications are through his office Lipid disorder: Patient is taking atorvastatin 40 mg, he is due for labs order placed Patient suffers from schizophrenia and is under care of psychiatrist, taking medications through them and is doing well GERD is stable with omeprazole Patient lives with a foster family, 1 of the family member is here with the patient And I also talked to another family member on speaker phone in front of patient regarding his health and other concerns Patient himself offer no complaints today. He has appointment for physical exam in December Orders: Orders Complete Blood Count Auto Diff Today E13.9 - Other specified diabetes mellitus without complications, E78.9 - Disorder of lipoprotein metabolism, unspecified, F20.9 - Schizophrenia, unspecified, K21.9 - Gastro-esophageal reflux disease without esophagitis LDL Cholesterol Direct Today E13.9 - Other specified diabetes mellitus without complications, E78.9 - Disorder of lipoprotein metabolism, unspecified, F20.9 - Schizophrenia, unspecified, K21.9 - Gastro-esophageal reflux disease without esophagitis Microalbumin, Random (w Creat) Today E13.9 - Other specified diabetes mellitus without complications, E78.9 - Disorder of lipoprotein metabolism, unspecified, F20.9 - Schizophrenia, unspecified, K21.9 - Gastro-esophageal reflux disease without esophagitis Comprehensive Met. Panel Today E13.9 - Other specified diabetes mellitus without complications, E78.9 - Disorder of lipoprotein metabolism, unspecified, F20.9 - Schizophrenia, unspecified, K21.9 - Gastro-esophageal reflux disease without esophagitis Vitamin D 25-OH (D2 and D3) Today E13.9 - Other specified diabetes mellitus without complications, E78.9 - Disorder of lipoprotein metabolism, unspecified, F20.9 - Schizophrenia, unspecified, K21.9 - Gastro-esophageal reflux disease without esophagitis Coding Level of Care Code Est Pt Level 4 (51557) Complex EM visit Add On G2211 Diagnoses Diabetes 1.5, managed as type 2 E13.9 Lipid disorder E78.9 Chronic GERD K21.9 Schizophrenia, unspecified type F20.9 Schizophrenia type: unspecified Intellectual disability F79 Lives in adult foster home Z59.3 Additional Codes KENNETH-7 Assessment Billing - KENNETH-7 Assessment Tool: KENNETH-7 Assessment [id number] ([id number])
== END 2023-06-26 13:01 | disposition home or self-care (01) ==
PROVIDERS: PCP Internal Medicine; Visit Provider Internal Medicine
DX: E13.9 Other specified diabetes mellitus without complications (principal); F20.9 Schizophrenia, unspecified; E78.9 Disorder of lipoprotein metabolism, unspecified; K21.9 Gastro-esophageal reflux disease without esophagitis; F79 Unspecified intellectual disabilities
CPT/HCPCS: 83036; 99214; G2211

== ENCOUNTER 2023-06-26 11:04 | Outpatient (REF) | payer MEDICARE, MEDICAID, SELFPAY ==
[2023-06-26 13:03] LABS: MANUAL DIFF FLAG NO
[2023-06-26 13:31] LABS: Basophils Absolute Auto 0.1 X10*3/uL (0.0-0.2); Basophils Percent Auto 0.8 % (0-2); Eosinophils Absolute Auto 0.3 X10*3/uL (0.0-0.4); Eosinophils Percent Auto 2.1 % (0-4); Hemoglobin 14.8 g/dl (14.0-18.0); Imm Gran Abs Auto 0.04 X10*3/uL (0.00-0.03); Imm Gran Pct Auto 0.3 % (0.0-0.4); Lymphocytes Absolute Auto 3.3 X10*3/uL (1.2-4.9); Lymphocytes Percent Auto 27.9 % (20-40); Mean Corpuscular HGB Conc 32.9 g/dl (31.0-36.0); Mean Corpuscular Hemoglobin 31.8 pg (27.0-33.0); Mean Corpuscular Volume 96.8 fL (80.0-98.0); Mean Platelet Volume 10.8 fL (9.4-12.4); Monocytes Absolute Auto 0.9 X10*3/uL (0.1-1.2); Monocytes Percent Auto 7.6 % (2-11); Neutrophils Absolute Auto 7.3 x10*3/uL (2.0-8.3); Neutrophils Percent Auto 61.3 % (45-73); Platelet Count 204 X10*3/uL (160-400); Red Blood Count 4.65 X10*6/uL (4.60-5.80); Red Cell Distribution Width 14.5 % (11.0-16.0); White Blood Count 11.9 X10*3/uL (4.8-10.8)
[2023-06-26 13:44] LABS: Estimated Average Glucose 151 mg/dL; Hemoglobin A1c % 6.9 % (<6.0)
[2023-06-26 13:53] LABS: Creatinine Urine 123.44 mg/dL; Microalbum/Creatinine Ratio Ur 6.4 ug/mg cr (<30)
[2023-06-26 14:15] LABS: Alanine Aminotransferase 11 U/L (0-40); Albumin Level 3.8 g/dL (3.5-5.0); Alkaline Phosphatase 70 U/L (39-117); Anion Gap 13 (12-20); Aspartate Amino Transferase 14 U/L (5-37); Bilirubin Total 0.3 mg/dL (0.0-1.0); Blood Urea Nitrogen 23 mg/dL (9-16); Calcium 9.8 mg/dL (8.4-10.2); Carbon Dioxide 30 mmol/L (22-29); Chloride 101 mmol/L (96-108); Cholesterol 154 mg/dL (<200); Estimated Glomerular Filt Rate > 60; Glucose Random 85 mg/dL (60-115); HDL Cholesterol 41 mg/dL (>40); LDL Cholesterol Calculated 95 mg/dL (<100); Potassium 4.4 mmol/L (3.3-5.1); Sodium 140 mmol/L (135-145); TSH reflex Free T4 1.84 uIU/mL (0.32-4.0); Total Protein 7.1 g/dL (6.5-8.0); Triglycerides 92 mg/dL (<150)
[2023-06-27 13:14] LABS: LDL Cholesterol Direct 102 mg/dL (<100)
[2023-06-30 15:12] LABS: Vitamin D 25-OH, D2 <4 ng/mL; Vitamin D 25-OH, D3 26 ng/mL; Vitamin D 25-OH, Total 26 ng/mL (30-100)
== END 2023-06-26 11:05 | disposition home or self-care (01) ==
LOC: HO.HMGCLDS 11:04
PROVIDERS: PCP Internal Medicine; Visit Provider Internal Medicine
DX: E11.65 Type 2 diabetes mellitus with hyperglycemia (principal); K21.9 Gastro-esophageal reflux disease without esophagitis; E78.9 Disorder of lipoprotein metabolism, unspecified; E13.9 Other specified diabetes mellitus without complications; F20.9 Schizophrenia, unspecified
CPT/HCPCS: 36415; 80053; 80061; 82043; 82306; 82570; 83036; 83721; 84443; 85025

== ENCOUNTER 2023-07-16 10:06 | Outpatient (AMB) | payer MEDICARE, MEDICAID, SELFPAY ==
--- NOTE | 2023-07-16 10:08 | MHC.OFFVIS ---
Vital Signs 07/16/23 10:09 Height 5 ft 6 in Weight 171 lb 11.841 oz BMI 27.7 BP 98/58 L Blood Pressure Location Lt brachial Position Sitting Pulse 67 Pulse Source Pulse Oximeter Intake Visit Reasons: F/u [id number] coming in at 10:20 Intake Note: Patient presents today to follow up on D2MT. Last Diabetic Eye exam: 05/2023 Last Podiatry Visit: 04/2023 Random Glucose: 136 mg/dl HgA1c: 7.1% 06/26/23 [facility] [employer] Required: No Accompanied by: SENIOR SOFTWARE QA ENGINEER Allergies No Known Allergies Allergy (Verified 07/16/23 10:15) Medication List - Last Reconciled 07/16/23 by Juan Valdez MD acetaminophen 325 mg PO Q6H PRN alcohol swabs (Alcohol Wipes) 100 pad topical .4 x/day atorvastatin 40 mg PO BEDTIME Basaglar KwikPen U-100 Insulin (insulin glargine) 20 units (0.2 mL) subcut QAM NS blood sugar diagnostic ([employer] No Coding strips) Tests 4X/day blood-glucose meter ([employer] Autocode Meter kit) Tests 4X/day blood-glucose sensor ([employer] Raúl 3 Sensor device) As directed change every 14 days disposable gloves As directed divalproex mg PO dulaglutide (Trulicity) 4.5 mg (0.5 mL) subcut QWEEK empagliflozin (Jardiance) 10 mg PO QAM hydroxyzine pamoate (Vistaril) 50 mg PO BEDTIME insulin aspart (niacinamide) 100 unit/mL (3 mL) (Fiasp FlexTouch U-100 Insulin) 7 units subcut BID lancets (Accu-Chek Softclix Lancets) As directed lancets ([employer] Lancets) tests 4/day latex gloves (Latex Gloves, Medium) As directed lisinopril 2.5 mg PO DAILY metformin 1,000 mg PO BID omeprazole 20 mg PO QAM 90 days pen needle, diabetic (Comfort EZ Pen [place]) As directed injects 3 X/day pen needle, diabetic (BD Ultra-Fine Original Pen Needle) As directed risperidone 3 mg PO BID HPI Comments Details: Patient is 53 year old male with DM type 2 diagnosed for an unknown amount of time who presents for management of diabetes. Past medical history: Dm2, HLD, schizophrenia Micro and macrovascular complications: neuropathy Diabetes medications: Trulicity 4.5 mg/week, Jardiance 10mg, metformin 500 2 pills BID, pioglitazone 15mg not taking . Novolog 5 units Basaglar 20 units No hypoglycemia Symptoms reported: denies numbness, tingling, cramping in lower extremities Hypoglycemia: denies Hyperglycemia: + urinary frequency, +polydypsia Exercise: walks 30 minutes or more a few times a day Eye exam: needs to make appt - had appt 05/2023 Laboratory Tests 03/20/21 08:34 Hgb A1c (Clinic) 9.9 H 12/07/20 12/07/20 12/07/20 10:58 10:58 10:58 Creatinine 0.86 Estimated GFR > 60 Hemoglobin A1c % 9.0 LDL Cholesterol Direct 75 TSH 1.72 Microalb/Creat Ratio 12/07/20 10:58 Creatinine Estimated GFR Hemoglobin A1c % LDL Cholesterol Direct TSH Microalb/Creat Ratio 19.7 PFSH Medical History Type 2 diabetes mellitus with diabetic polyneuropathy DM2 (diabetes mellitus, type 2) Schizophrenia Hyperlipidemia LDL goal <100 Uncontrolled diabetes mellitus Chronic GERD Lipid disorder Surgical History History of back surgery History of knee surgery Hernia History of colonoscopy Family History Father Colon cancer Mother No problems noted. Brother No problems noted. Sister No problems noted. Social History Household Members: Other Household Members Other:: Shared living - [facility] Housing Housing: Assisted Living Facility (service net ) Alcohol intake: never Patient Tobacco Use Status: Current everyday Tobacco user Cigarette Packs Per Day: 1 e-Cigarette/Vaping Use: Never Used Current occupational status: disabled Cognitive needs: No Hearing needs: No Vision needs: Yes Physical Exam Vital Signs: Last Vital Signs Pulse 67 07/16/23 10:09 BP 98/58 L 07/16/23 10:09 BMI result Body Mass Index 27.7 Absence of Cushingoid features. Absence of acromegalic features. Neck exam reveals nl size thyroid about 15 gms. No thyroid nodules palpable. No carotid bruits present. Lungs CTA. Heart S1 S2, Reg R/R. No M/R/ G. Skin exam reveals absence of vitiligo or acanthosis nigricans. Abdominal exam reveals Soft NT/ND with NA BS. No organomegaly present. Neck Other: . Extrem Other: Visual exam of foot performed. No ulcerations or open lesions. No onchomycosis, no callouses.Pulses 2 + distally Sensation intact to monofilament exam. Vibratory sensation sensed is intact with 128 Hz tuning fork Results Reviewed Results Reviewed: Laboratory Last Values Glucose (Clinic) 136 mg/dL (60-115) H 07/16/23 10:19 Assessment & Plan Assessment & Plan (1) Uncontrolled diabetes mellitus: Comment: Recommend monitoring labs for vitamins B deficiency related to history of type 2 DM with neuropathy and long-term history treatment with metformin Code(s): E11.65 - Type 2 diabetes mellitus with hyperglycemia Category: Medical Qualifiers: Diabetes mellitus type: type 2 Glycemic state: with hyperglycemia Qualified Code(s): E11.65 - Type 2 diabetes mellitus with hyperglycemia Plan: This is a 52-year-old white male with a history of type 2 diabetes being managed with Trulicity, Jardiance, metformin and Fiasp with poor glycemic control and known microvascular complications namely neuropathy. Plan is to decrease the Trulicity dose to 1.5 mg Q weekly which is now available at the pharmacy (the 4.5 mg dose is not available). Otherwise continue present management. Medications: New dulaglutide (Trulicity) 1.5 mg (0.5 mL) subcut QWEEK 2 mL 5RF Discontinued dulaglutide (Trulicity) Discontinued Reason: Doctor's Order 4.5 mg (0.5 mL) subcut QWEEK 2 mL 5RF E11.65 - Type 2 diabetes mellitus with hyperglycemia Coding Level of Care Code Est Pt Level 4 (94193) Diagnoses Uncontrolled type 2 diabetes mellitus with hyperglycemia E11.65 Diabetes mellitus type: type 2 Glycemic state: with hyperglycemia
[2023-07-16 10:09] VITALS: BP 98/58; PULSE 67; BMI 27.7
[2023-07-16 10:23] LABS: Glucose, Whole Blood 136 mg/dL (60-115)
== END 2023-07-16 11:16 | disposition home or self-care (01) ==
PROVIDERS: PCP Internal Medicine; Visit Provider Internal Medicine Endocrinology, Diabetes & Metabolism
DX: E11.65 Type 2 diabetes mellitus with hyperglycemia (principal)
CPT/HCPCS: 99214

== ENCOUNTER → 2023-07-16 10:06 | Outpatient (BNVA) | payer MEDICARE, MEDICAID, SELFPAY | PROVIDERS: PCP Internal Medicine; Visit Provider Internal Medicine Endocrinology, Diabetes & Metabolism | DX: E11.65 Type 2 diabetes mellitus with hyperglycemia (principal); Z79.85 Long-term (current) use of injectable non-insulin antidiabetic drugs | CPT/HCPCS: 82947; 99212 ==

== ENCOUNTER 2023-09-10 14:40 | Outpatient (AMB) | payer MEDICARE, MEDICAID, SELFPAY ==
--- NOTE | 2023-09-10 15:06 | A.OFFVIS_ITS ---
Intake Intake Visit Reasons: 30 min/LVM Final Canoe Inspector Required: No Accompanied by: Other Relationship Allergies No Known Allergies Allergy (Verified 07/16/23 10:15) HPI Comprehensive Diabetes Asmnt Most Recent Diabetes Results: Hemoglobin A1c 8.9 % 06/23/19 Microalb/Creat Ratio 6.4 ug/mg cr (<30) 06/26/23 Cholesterol 154 mg/dL (<200) 06/26/23 HDL Cholesterol 41 mg/dL (>40) 06/26/23 Triglycerides 92 mg/dL (<150) 06/26/23 Creatinine 0.85 mg/dL (0.5-1.4) 06/26/23 Blood Urea Nitrogen 23 mg/dL (9-16) H 06/26/23 Sodium 140 mmol/L (135-145) 06/26/23 Potassium 4.4 mmol/L (3.3-5.1) 06/26/23 Chloride 101 mmol/L (96-108) 06/26/23 Carbon Dioxide 30 mmol/L (22-29) H 06/26/23 Calcium 9.8 mg/dL (8.4-10.2) 06/26/23 AST 14 U/L (5-37) 06/26/23 ALT 11 U/L (0-40) 06/26/23 Total Protein 7.1 g/dL (6.5-8.0) 06/26/23 Albumin 3.8 g/dL (3.5-5.0) 06/26/23 [facility] Medical History Type 2 diabetes mellitus with diabetic polyneuropathy DM2 (diabetes mellitus, type 2) Schizophrenia Hyperlipidemia LDL goal <100 Uncontrolled diabetes mellitus Chronic GERD Lipid disorder Surgical History History of back surgery History of knee surgery Hernia History of colonoscopy Family History Father Colon cancer Mother No problems noted. Brother No problems noted. Sister No problems noted. Social History Household Members: Other Household Members Other:: Shared living - Service Net Housing Housing: Assisted Living Facility (service net ) Alcohol intake: never Patient Tobacco Use Status: Current everyday Tobacco user Cigarette Packs Per Day: 1 e-Cigarette/Vaping Use: Never Used Current occupational status: disabled Cognitive needs: No Hearing needs: No Vision needs: Yes Assessment & Plan Assessment & Plan (1) Uncontrolled diabetes mellitus: Comment: Recommend monitoring labs for vitamins B deficiency related to history of type 2 DM with neuropathy and long-term history treatment with metformin Code(s): E11.65 - Type 2 diabetes mellitus with hyperglycemia Qualifiers: Diabetes mellitus type: type 2 Glycemic state: with hyperglycemia Qualified Code(s): E11.65 - Type 2 diabetes mellitus with hyperglycemia Plan: Patient at visit for follow-up blood glucose check, and diabetes education Reviewed current diabetes medication with patient and his extension professor Both deny missing doses of medications Patient had lost monorail charger operator to his CGM, gave patient extra monorail charger operator so he can resume using Raúl 2 sensors Patient reports blood sugars below: Date Breakfast/Fasting Pre-Lunch Pre-Supper Bedtime Notes 08/23 124 114 7/9 120 131 7/10 120 123 /11 116 158 7/12 113 136 7/13 134 112 7/14 121 126 Patient instructed to continue on current plan. Plan/Goal: Patient will follow-up with Endocrine PA on 11/16/2023 Patient does not need to follow up with security shift manager unless significant change in diabetes Portions of this note were created using voice recognition software, please excuse any words or phrases that may have been misinterpreted. Patient Instructions: Follow-up with security shift manager as needed Coding Level of Care Code Est Pt Level 1 (07845) Diagnoses Uncontrolled type 2 diabetes mellitus with hyperglycemia E11.65 Diabetes mellitus type: type 2 Glycemic state: with hyperglycemia
== END 2023-09-10 15:11 | disposition home or self-care (01) ==
PROVIDERS: PCP Internal Medicine; Visit Provider Registered Nurse Diabetes Educator
DX: E11.65 Type 2 diabetes mellitus with hyperglycemia (principal)

== ENCOUNTER → 2023-09-10 14:40 | Outpatient (BNVA) | payer MEDICARE, MEDICAID, SELFPAY | PROVIDERS: PCP Internal Medicine; Visit Provider Registered Nurse Diabetes Educator | DX: E11.65 Type 2 diabetes mellitus with hyperglycemia (principal); E11.42 Type 2 diabetes mellitus with diabetic polyneuropathy | CPT/HCPCS: 99211 ==

== ENCOUNTER 2023-09-24 12:43 | Outpatient (AMB) | payer MEDICARE, MEDICAID, SELFPAY ==
[2023-09-24 12:47] VITALS: BMI 28.5
--- NOTE | 2023-09-24 12:47 | A.OFFVIS_ITS ---
VS Expanded 09/24/23 12:47 Height 5 ft 6 in Weight 176 lb 9.444 oz BMI 28.5 Intake Visit Reasons: T2DM/CONFIRMED Allergies No Known Allergies Allergy (Verified 07/16/23 10:15) Nutrition Presentation Details: Pt presents for MNT f/u for T2DM Reports fbg ranging from 92-132s Having 3 meals per day B: cereal with milk L: sandwhih chicken salad, water or milk or diet soda D: chicken /potato or rice salad or green beans snack crackers p.b or 1/2 sand or cereal c/o sensor falling off - recommended to use adhesives BS Monitoring Most Recent Diabetes Results: Microalb/Creat Ratio 6.4 ug/mg cr (<30) 06/26/23 Cholesterol 154 mg/dL (<200) 06/26/23 HDL Cholesterol 41 mg/dL (>40) 06/26/23 Triglycerides 92 mg/dL (<150) 06/26/23 Creatinine 0.85 mg/dL (0.5-1.4) 06/26/23 Blood Urea Nitrogen 23 mg/dL (9-16) H 06/26/23 Sodium 140 mmol/L (135-145) 06/26/23 Potassium 4.4 mmol/L (3.3-5.1) 06/26/23 Chloride 101 mmol/L (96-108) 06/26/23 Carbon Dioxide 30 mmol/L (22-29) H 06/26/23 Calcium 9.8 mg/dL (8.4-10.2) 06/26/23 AST 14 U/L (5-37) 06/26/23 ALT 11 U/L (0-40) 06/26/23 Total Protein 7.1 g/dL (6.5-8.0) 06/26/23 Albumin 3.8 g/dL (3.5-5.0) 06/26/23 [facility] Medical History Type 2 diabetes mellitus with diabetic polyneuropathy DM2 (diabetes mellitus, type 2) Schizophrenia Hyperlipidemia LDL goal <100 Uncontrolled diabetes mellitus Chronic GERD Lipid disorder Surgical History History of back surgery History of knee surgery Hernia History of colonoscopy Family History Father Colon cancer Mother No problems noted. Brother No problems noted. Sister No problems noted. Social History Household Members: Other Household Members Other:: Shared living - [facility] Housing Housing: Assisted Living Facility (service net ) Alcohol intake: never Patient Tobacco Use Status: Current everyday Tobacco user Cigarette Packs Per Day: 1 e-Cigarette/Vaping Use: Never Used Current occupational status: disabled Cognitive needs: No Hearing needs: No Vision needs: Yes Assessment & Plan Assessment & Plan (1) Uncontrolled diabetes mellitus: Comment: Recommend monitoring labs for vitamins B deficiency related to history of type 2 DM with neuropathy and long-term history treatment with metformin Code(s): E11.65 - Type 2 diabetes mellitus with hyperglycemia Category: Medical Qualifiers: Diabetes mellitus type: type 2 Glycemic state: with hyperglycemia Qualified Code(s): E11.65 - Type 2 diabetes mellitus with hyperglycemia Plan: wt 76 kg Est kcal needs as per MSJ: 2200 (40% carb, 30% protein/fat) Est fluid needs as per 30 ml/d: 2300 Est prot per day as per 1 g/kg bw: 76 Recommend fiber intake : 8-10 g per day and gradually increase to 25-28 g per day for women and 35-38 g for men or as tolerated Recommend sodium intake per day : less than 2000 mg Educated patient on: ( R = reviewed V = verbalizes understanding N/R = needs review N/A = not applicable * Food sources of carbohydrate, adequate serving sizes and its role in various health conditions: R * Differences between complex carbohydrates a simple carbohydrates, role of fiber in diet: NR * Differences between types of fats and role in diet (mono on saturated fat fatty acids, saturated fatty acids, trans fats): R , basic low fat * Food sources of sodium in salt and healthy modifications for heart health in kidney health: NR * Healthy plate method concept: R * Physical activity: Benefits a precaution: R * Hypoglycemia protocol (rule of 15): R, V * Dietary prevention of Hyperglycemia: R Patient Instructions: Continue to follow healthy plate method Coding Level of Care Code Nutr Indiv Subseq (76151) Diagnoses Uncontrolled type 2 diabetes mellitus with hyperglycemia E11.65 Diabetes mellitus type: type 2 Glycemic state: with hyperglycemia
== END 2023-09-24 13:05 | disposition home or self-care (01) ==
PROVIDERS: PCP Internal Medicine; Visit Provider Dietitian, Registered
DX: E11.65 Type 2 diabetes mellitus with hyperglycemia (principal)

== ENCOUNTER → 2023-09-24 12:43 | Outpatient (BNVA) | payer MEDICARE, MEDICAID, SELFPAY | PROVIDERS: PCP Internal Medicine; Visit Provider Dietitian, Registered | DX: E11.65 Type 2 diabetes mellitus with hyperglycemia (principal) | CPT/HCPCS: 97803 ==

== ENCOUNTER 2023-11-16 11:00 | Outpatient (AMB) | payer MEDICARE, MEDICAID, SELFPAY ==
--- NOTE | 2023-11-16 11:02 | MHC.OFFVIS ---
Vital Signs 11/16/23 11:03 Height 5 ft 6 in Weight 176 lb 9.444 oz BMI 28.5 BP 110/62 Blood Pressure Location Rt brachial Position Sitting Pulse 71 Pulse Source Pulse Oximeter Intake Visit Reasons: T2DM Intake Note: New patient presents today for D2MT office visit. 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: No Accompanied by: Self / Same As Patient Allergies No Known Allergies Allergy (Verified 11/16/23 11:08) Medication List - Last Reconciled 11/16/23 by Nelly Pabon PA-C acetaminophen 325 mg PO Q6H PRN alcohol swabs (Alcohol Wipes) 100 pad topical .4 x/day atorvastatin 40 mg PO BEDTIME Basaglar KwikPen U-100 Insulin (insulin glargine) 20 units (0.2 mL) subcut QAM NS blood sugar diagnostic ([employer] No Coding strips) Tests 4X/day blood-glucose meter ([employer] Autocode Meter kit) Tests 4X/day blood-glucose sensor ([employer] Raúl 3 Sensor device) As directed change every 14 days disposable gloves As directed divalproex mg PO dulaglutide (Trulicity) 3 mg (0.5 mL) subcut QWEEK empagliflozin (Jardiance) 10 mg PO QAM hydroxyzine pamoate (Vistaril) 50 mg PO BEDTIME insulin aspart (niacinamide) 100 unit/mL (3 mL) (Fiasp FlexTouch U-100 Insulin) 5 units subcut BID lancets (Accu-Chek Softclix Lancets) As directed lancets (Prodigy Lancets) tests 4/day latex gloves (Latex Gloves, Medium) As directed lisinopril 2.5 mg PO DAILY lisinopril (Zestril) 2.5 mg PO DAILY metformin 1,000 mg PO BID omeprazole 20 mg PO QAM 90 days pen needle, diabetic (Comfort EZ Pen [place]) As directed injects 3 X/day pen needle, diabetic (BD Ultra-Fine Original Pen Needle) As directed risperidone 3 mg PO BID HPI HPI T2DM: Details: Patient is a 53-year-old male who presents today for a follow up regarding his diabetes. He does have a significant past medical history of intellectual disability, schizophrenia, type 2 diabetes, hyperlipidemia. He was last seen by Dr. Valdez in June. Endo: Dm-A1c is 7.8. He was diagnosed with diabetes 3-4 years ago. He is currently on metformin 1000 mg twice a day, fiasp 5 units twice a day, Basaglar 20 units daily, Trulicity 1.5 mg weekly, Jardiance 10 mg daily. -he was on Trulicity 4.5 mg a few months ago but due to shortages has only been on the 1.5. cgm- unable to download in the office today but I did review the reader. He is using it 33%. He is hyperglycemic 31% and in range 69%. No hypoglycemia. -Most of the hyperglycemic events are in the afternoon around lunchtime. 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 He often is out of the house on days that he is off from morning time through supper time. He does not feel like he would be able to give himself insulin around lunchtime. -his foster family endorses that he does have a lot of dietary indiscretions. He has a hard time getting rid of Coca-[employer]a. He drink soda almost every day. He is on an CLIFF-inhibitor and statin. Up-to-date with ophthalmology. Up-to-date with podiatry. CV: Blood pressure today in the office is 110/62. He is on lisinopril 2.5 mg. Cholesterol is controlled with atorvastatin 40 mg. Last LDL was 95. LFTs WNL. No myalgias. Psych: Stable. Remains on Risperdal, hydroxyzine and Depakote. [facility] Medical History (Updated 11/16/23 @ 11:06 by Nelly Pabon PA-C) Type 2 diabetes mellitus with diabetic polyneuropathy DM2 (diabetes mellitus, type 2) Schizophrenia Hyperlipidemia LDL goal <100 Uncontrolled diabetes mellitus Chronic GERD Lipid disorder Surgical History History of back surgery History of knee surgery Hernia History of colonoscopy Family History Father Colon cancer Mother No problems noted. Brother No problems noted. Sister No problems noted. Social History Household Members: Other Household Members Other:: Shared living - [facility] Housing Housing: Assisted Living Facility (service net ) Alcohol intake: never Patient Tobacco Use Status: Current everyday Tobacco user Cigarette Packs Per Day: 1 e-Cigarette/Vaping Use: Never Used Current occupational status: disabled Cognitive needs: No Hearing needs: No Vision needs: Yes Physical Exam Vital Signs: Last Vital Signs Pulse 71 11/16/23 11:03 BP 110/62 11/16/23 11:03 BMI result Body Mass Index 28.5 Const Orientation/consciousness: patient oriented x3 Neck Neck: Yes no lymphadenopathy Thyroid: Thyroid normal Carotids: no bruits Resp Auscultation: clear to auscultation bilaterally Cardio Rate: regular rate Rhythm: regular rhythm Heart sounds: S1 normal heart sound present and S2 normal heart sound present Peripheral pulses: dorsalis pedis present Neuro General: patient oriented x3, gait normal and no focal motor deficits Extrem Other: Monofilament sensation intact bilaterally. Vibratory sensation intact bilaterally. Skin intact. General: Yes normal to inspection Results AMB Hemoglobin A1c AMB Hemoglobin A1c 7.8 % Last Edit by PIPER Georges on 11/16/23 11:28 Results Reviewed Results Reviewed: Laboratory Last Values Glucose (Clinic) 142 mg/dL (60-115) H 11/16/23 11:12 Hgb A1c (Clinic) 7.8 % (4.0-6.0) H 11/16/23 11:15 Laboratory Tests 06/26/23 06/26/23 07/16/23 11:10 11:13 10:19 Sodium 140 Potassium 4.4 Chloride 101 Carbon Dioxide 30 H Anion Gap 13 BUN 23 H Creatinine 0.85 Estimated GFR > 60 Glucose (Clinic) 136 H Estimat Average Glucose 151 Hemoglobin A1c % 6.9 H AST 14 ALT 11 Triglycerides 92 Cholesterol 154 LDL Cholesterol, Calc 95 HDL Cholesterol 41 Urine Creatinine 123.44 Urine Microalbumin 8.0 Microalb/Creat Ratio 6.4 Assessment & Plan Assessment & Plan (1) Type 2 diabetes mellitus with diabetic polyneuropathy: Code(s): E11.42 - Type 2 diabetes mellitus with diabetic polyneuropathy Category: Medical Qualifiers: Diabetes mellitus group home insulin use: with group home use Qualified Code(s): E11.42 - Type 2 diabetes mellitus with diabetic polyneuropathy; 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 Continue current regimen otherwise. Advised patient to follow up in 3 months. Sooner if needed. We did spend extensive time today, more than 30 minutes, discussing diet and pathophysiology of diabetes. Reviewed complications associated with uncontrolled diabetes including neuropathy, blindness, kidney disease, increased risk of heart attack and stroke etc.. We reviewed signs and symptoms of hyper and hypoglycemia that would require emergent medical treatment. (2) Lipid disorder: Code(s): E78.9 - Disorder of lipoprotein metabolism, unspecified Category: Medical Plan: Continue current regimen. 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 Medications: New dulaglutide (Trulicity) 3 mg (0.5 mL) subcut QWEEK 2 mL 6RF Changed From insulin aspart (niacinamide) 100 unit/mL (3 mL) (Fiasp FlexTouch U-100 Insulin) 7 units subcut BID 15 mL 5RF To insulin aspart (niacinamide) 100 unit/mL (3 mL) (Fiasp FlexTouch U-100 Insulin) 5 units subcut BID 15 mL 5RF Discontinued dulaglutide (Trulicity) Discontinued Reason: Doctor's Order 1.5 mg (0.5 mL) subcut QWEEK 2 mL 5RF Coding Level of Care Code Est Pt Level 4 (93226) Complex EM visit Add On G2211 Diagnoses Type 2 diabetes mellitus with diabetic polyneuropathy, with long-term current use of insulin E11.42; Z79.4 Diabetes mellitus 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
[2023-11-16 11:03] VITALS: BP 110/62; PULSE 71; BMI 28.5
[2023-11-16 11:16] LABS: Glucose, Whole Blood 142 mg/dL (60-115)
== END 2023-11-16 11:42 | disposition home or self-care (01) ==
PROVIDERS: PCP Internal Medicine; Visit Provider Physician Assistant
DX: E11.42 Type 2 diabetes mellitus with diabetic polyneuropathy (principal); Z79.4 Long term (current) use of insulin; E78.9 Disorder of lipoprotein metabolism, unspecified; Z13.9 Encounter for screening, unspecified

== ENCOUNTER → 2023-11-16 11:00 | Outpatient (BNVA) | payer MEDICARE, MEDICAID, SELFPAY | PROVIDERS: PCP Internal Medicine; Visit Provider Physician Assistant | DX: E11.42 Type 2 diabetes mellitus with diabetic polyneuropathy (principal); E78.9 Disorder of lipoprotein metabolism, unspecified; Z79.4 Long term (current) use of insulin; Z71.3 Dietary counseling and surveillance | CPT/HCPCS: 82947; 83036; 99212 ==

== ENCOUNTER 2024-01-08 11:29 | Outpatient (REF) | payer MEDICARE, MEDICAID, SELFPAY ==
[2024-01-08 13:05] LABS: MANUAL DIFF FLAG NO
[2024-01-08 13:16] LABS: Basophils Absolute Auto 0.1 X10*3/uL (0.0-0.2); Basophils Percent Auto 0.5 % (0-2); Eosinophils Absolute Auto 0.2 X10*3/uL (0.0-0.4); Eosinophils Percent Auto 1.5 % (0-4); Hematocrit 41.9 % (42.0-52.0); Hemoglobin 13.7 g/dl (14.0-18.0); Imm Gran Abs Auto 0.06 X10*3/uL (0.00-0.03); Imm Gran Pct Auto 0.6 % (0.0-0.4); Lymphocytes Absolute Auto 4.5 X10*3/uL (1.2-4.9); Lymphocytes Percent Auto 44.9 % (20-40); Mean Corpuscular HGB Conc 32.7 g/dl (31.0-36.0); Mean Corpuscular Hemoglobin 31.2 pg (27.0-33.0); Mean Corpuscular Volume 95.4 fL (80.0-98.0); Mean Platelet Volume 10.6 fL (9.4-12.4); Monocytes Absolute Auto 0.8 X10*3/uL (0.1-1.2); Monocytes Percent Auto 7.5 % (2-11); Neutrophils Absolute Auto 4.5 x10*3/uL (2.0-8.3); Platelet Count 219 X10*3/uL (160-400); Red Blood Count 4.39 X10*6/uL (4.60-5.80); Red Cell Distribution Width 14.5 % (11.0-16.0)
[2024-01-08 13:33] LABS: Estimated Average Glucose 180 mg/dL; Hemoglobin A1C 219.0049 umol/L; Hemoglobin A1c % 7.9 % (<6.0); Total Hemoglobin (HGBA1C) 3486.9981 umol/L
[2024-01-08 14:14] LABS: Creatinine Urine 43.71 mg/dL; Microalbum/Creatinine Ratio Ur 20.5 ug/mg cr (<30)
[2024-01-08 14:23] LABS: Alanine Aminotransferase 14 U/L (0-40); Albumin Level 3.7 g/dL (3.5-5.0); Alkaline Phosphatase 102 U/L (39-117); Anion Gap 11 (12-20); Aspartate Amino Transferase 20 U/L (5-37); Bilirubin Total 0.2 mg/dL (0.0-1.0); Blood Urea Nitrogen 17 mg/dL (9-16); Calcium 9.2 mg/dL (8.4-10.2); Carbon Dioxide 32 mmol/L (22-29); Chloride 100 mmol/L (96-108); Estimated Glomerular Filt Rate > 60; Glucose Random 154 mg/dL (60-115); Sodium 139 mmol/L (135-145); Total Protein 6.9 g/dL (6.5-8.0)
[2024-01-08 14:37] LABS: TSH reflex Free T4 3.43 uIU/mL (0.32-4.0)
[2024-01-11 19:08] LABS: LDL Cholesterol Direct 113 mg/dL (<100)
[2024-01-13 17:28] LABS: Vitamin D 25-OH, D2 <4 ng/mL; Vitamin D 25-OH, D3 27 ng/mL; Vitamin D 25-OH, Total 27 ng/mL (30-100)
== END 2024-01-08 11:30 | disposition home or self-care (01) ==
LOC: HO.HMGCLDS 11:29
PROVIDERS: PCP Internal Medicine; Visit Provider Internal Medicine
DX: Z00.01 Encounter for general adult medical examination with abnormal findings (principal); Z23 Encounter for immunization; E78.9 Disorder of lipoprotein metabolism, unspecified; K21.9 Gastro-esophageal reflux disease without esophagitis; E11.42 Type 2 diabetes mellitus with diabetic polyneuropathy; Z79.4 Long term (current) use of insulin; F79 Unspecified intellectual disabilities; R26.9 Unspecified abnormalities of gait and mobility; R26.89 Other abnormalities of gait and mobility
CPT/HCPCS: 36415; 80053; 82043; 82306; 82570; 83036; 83721; 84443; 85025; 90471; 90656; 96127; 99396

== ENCOUNTER 2024-01-08 11:29 | Outpatient (AMB) | payer MEDICARE, MEDICAID, SELFPAY ==
--- NOTE | 2024-01-08 11:29 | A.OFFPC_ITS ---
Vital Signs 01/08/24 11:39 Height 5 ft 6 in Weight 186 lb 2 oz BMI 30.0 BP 120/70 Blood Pressure Location Lt brachial Position Sitting Pulse 77 Pulse Source Pulse Oximeter Pulse Oximetry (%) 98 Oxygen Delivery Method Room Air Intake Visit Reasons: PE Allergies No Known Allergies Allergy (Verified 01/08/24 11:30) Medication List - Last Reconciled 01/08/24 by Mauro Zambrano MD acetaminophen 325 mg PO Q6H PRN alcohol swabs (Alcohol Wipes) 100 pad topical .4 x/day atorvastatin 40 mg PO BEDTIME Basaglar KwikPen U-100 Insulin (insulin glargine) 20 units (0.2 mL) subcut QAM NS blood sugar diagnostic (Cognea No Coding strips) Tests 4X/day blood-glucose meter (Cognea Autocode Meter kit) Tests 4X/day blood-glucose sensor (BlastRootsStyle Raúl 3 Sensor device) As directed change every 14 days disposable gloves As directed divalproex mg PO dulaglutide (Trulicity) 3 mg (0.5 mL) subcut QWEEK empagliflozin (Jardiance) 10 mg PO QAM hydroxyzine pamoate (Vistaril) 50 mg PO BEDTIME insulin aspart (niacinamide) 100 unit/mL (3 mL) (Fiasp FlexTouch U-100 Insulin) 5 units subcut BID lancets (Accu-Chek Softclix Lancets) As directed lancets (Prodigy Lancets) tests 4/day latex gloves (Latex Gloves, Medium) As directed lisinopril 2.5 mg PO DAILY metformin 1,000 mg PO BID omeprazole 20 mg PO QAM 90 days pen needle, diabetic (Comfort EZ Pen [place]) As directed injects 3 X/day pen needle, diabetic (BD Ultra-Fine Original Pen Needle) As directed risperidone 3 mg PO BID Tobacco use date assessed: 01/08/24 Dental Screening Dental Screen Date: 01/08/24 HPI PE HPI Details Chief Complaint Routine follow-up and preventive health maintenance. Health Maintenance - Colonoscopy referral due to last year' s missed appointment. - Laboratory tests ordered to monitor di abetes, last conducted in June. - Referral to podiatry due to a change i n specialist. Dr. Jamison patient has appointment March 18 at 09:30 - Administered influenza vaccine today. Assessment and Plan 53-year-old male with a history of diabe sisi mellitus presenting for routine follow-up and preventive care. The patient missed his colonoscopy appointment last year, necessitating re-evaluation of his need for colon cancer screening. Diabetes management is ongoing, with last laboratory tests done in June, prompting new orders. Influenza vaccination is administered today to align with seasonal recommendations. The patient's foot care needs are to be addressed by a new furniture mover helper following the previous furniture mover helper's passing. 1. Foot Examination Following the passing of the previous furniture mover helper, the patient is to see Dr. Jamison for ongoing foot care. No new referral is necessary as this is already in place. 2. Need For Colon Cancer Screening A colonoscopy was recommended last year but not completed. A repeated referral request will be placed for the patient to arrange the screening. 3. Diabetes Mellitus Interim diabetes management continues, with laboratory tests ordered today to assess current metabolic control. The follow-up should continue with regular monitoring and adjustments as needed, following Dr. Valdez's recommendations for diabetic care. Patient Instructions - Arrange and attend the colonoscopy larissa ointment as soon as the referral is processed. - Proceed with the laboratory tests toda y for diabetes monitoring. - Follow up with Dr. Jamison for foot care as scheduled. - Remain seated until the influenza vacc ination is administered. - Call the office if new symptoms develo p or existing symptoms worsen before the next scheduled visit. Follow-up six-month for routine 1 year physical exam [facility] Medical History Type 2 diabetes mellitus with diabetic polyneuropathy DM2 (diabetes mellitus, type 2) Schizophrenia Hyperlipidemia LDL goal <100 Uncontrolled diabetes mellitus Chronic GERD Lipid disorder Surgical History History of back surgery History of knee surgery Hernia History of colonoscopy Family History Father Colon cancer Mother No problems noted. Brother No problems noted. Sister No problems noted. Social History Household Members: Other Household Members Other:: Shared living - [facility] Housing Housing: Assisted Living Facility ([facility] ) Alcohol intake: never Patient Tobacco Use Status: Current everyday Tobacco user Cigarette Packs Per Day: 1 e-Cigarette/Vaping Use: Never Used Current occupational status: disabled Cognitive needs: No Hearing needs: No Vision needs: Yes Questionnaire PHQ-9 Over the last 2 weeks, how often have you been bothered by any of the following problems? 1. Little interest or pleasure in doing things: not at all 2. Feeling down, depressed, or hopeless: not at all 3. Trouble falling or staying asleep, or sleeping too much: not at all 4. Feeling tired or having little energy: not at all 5. Poor appetite or overeating: not at all 6. Feeling bad about yourself - or that you are a failure or have let yourself or your family down: not at all 7. Trouble concentrating on things, such as reading the newspaper or watching television: not at all 8. Moving or speaking so slowly that other people could have noticed. Or the opposite - being so fidgety or restless that you have been moving around a lot more than usual: not at all 9. Thoughts that you would be better off or of hurting yourself in some way: not at all Total score: 0 Depression Screening Interpretation: Negative Depression Screening Done: Yes 52175 - PHQ-9 Billing: Yes Source: Developed by Drs. Juan Akins, Janice Sheets, Oscar Jolly and colleagues, with an educational jyotsna from [employer]. Thrive Questionnaire Date Thrive assessed: 01/08/24 I am a: Patient What is your living situation today?: I have a steady place to live Within the past 12 months, did the food you bought not last and you didn't have the money to get more?: Never true Within the past 12 months, did you worry whether your food would run out before you got money to buy more?: Never true Do you have trouble paying for medicines?: No Do you have trouble getting transportation to medical appointments?: No Do you have trouble paying your heating and electricity bill?: No Do you have trouble taking care of your child, family member or friend?: I choose not to answer this question Do you have trouble with day-to-day activities such as bathing, preparing meals, shopping, managing finances, etc.?: I choose not to answer this question Are you currently unemployed and looking for a job?: No Are you interested in more education?: No Please select the resources that you would like help with: None Currently or been in a relationship where the following occur: No concerns reported THRIVE Score: 0 AUDIT C Alcohol Use Questionnaire (AUDIT-C) 1. How often do you have a drink containing alcohol?: Monthly or less 2. How many drinks containing alcohol do you have on a typical day when you are drinking?: 1 or 2 3. How often do you have six or more drinks on one occasion?: Never Total Score: 1 Score Reviewed/Action Taken: Yes KENNETH-7 AMB Questionnaire KENNETH-7 Date KENNETH - 7 assessed: 01/08/24 Feeling nervous, anxious, or on edge: 0 = Not at all Not being able to stop or control worryin = Not at all Worrying too much about different things: 0 = Not at all Trouble relaxin = Not at all Being so restless that it is hard to sit still: 0 = Not at all Becoming easily annoyed or irritable: 0 = Not at all Feeling afraid as if something awful might happen: 0 = Not at all Total KENNETH-7 score (0-4 normal; 5-9 mild; 10-14 moderate; 15-21 severe): 0 Source: Developed by Drs. Juan Akins, Janice Sehets, Oscar Jolly and colleagues, with an educational jyotsna from [employer]. KENNETH-7 Assessment Billing KENNETH-7 Assessment Tool: KENNETH-7 Assessment 76478 Review of Systems Const Denies chills, Denies fever(s) and Denies headache(s) Eyes Denies blurry vision ENT Denies headache(s), Denies nasal discharge, Denies nasal obstruction, Denies odynophagia and Denies sinus pain Card Denies chest pain at rest and Denies chest pain with activity Resp Denies cough and Denies hemoptysis GI Denies diarrhea, Denies odynophagia, Denies vomiting and Denies hematemesis Reports as per HPI Musc Denies abnormal gait Skin/Breast Reports as per HPI Neuro Denies Neuro-related abnormal movements, Denies Abnormal speech present, Denies abnormal gait and Denies headache(s) Psych Denies mood swings and Denies paranoia Endo Reports as per HPI Johan/Lymph Reports as per HPI Aller/Immun Reports as per HPI Physical exam (Primary Care) Vital Signs: Last Vital Signs Pulse 77 01/08/24 11:39 BP 120/70 01/08/24 11:39 Pulse Ox 98 01/08/24 11:39 Oxygen Delivery Method Room Air 01/08/24 11:39 BMI result Body Mass Index 30.0 Tobacco/Smoking Status: Tobacco use Status Tobacco use date assessed 01/08/24 01/08/24 11:32 Patient Tobacco Use Status Current everyday Tobacco 01/08/24 11:32 e-Cigarette/Vaping Use Never Used 01/08/24 11:32 PHQ-9: PHQ-9 Score PHQ-9: Total score 0 01/08/24 11:32 Depression Screening Interpretation: Negative Thrive Assessment: Date of Thrive Assessment Date Thrive assessed 01/08/24 01/08/24 11:32 Currently or been in a relationship where the following occur: No concerns reported Const General: cooperative, comfortable and no acute distress Orientation/consciousness: patient oriented x3 HENMT Head: Yes normocephalic and Yes atraumatic Eyes General: appearance normal, both eyes and all related structures Pupils: Equal, round and reactive pupils present EOM: EOMs intact bilaterally Neck Neck: Yes supple and No lymphadenopathy Thyroid: Thyroid normal Lymphatic: no lymphadenopathy noted Resp Effort & Inspection: normal respiratory effort and able to speak in complete sentences Auscultation: clear to auscultation bilaterally Cardio Heart sounds: S1 normal heart sound present and S2 normal heart sound present GI Palpation (GI): Soft to palpation and nontender Auscultation: normal bowel sounds General: Yes no CVA tenderness Back/Spine/Pelvis Back: no CVA tenderness Skin General skin exam: elasticity normal and turgor normal Neuro General: patient oriented x3 and gait normal Cranial nerves: Yes Equal, round and reactive pupils present Speech: No Abnormal speech present Extrem General: Yes normal exam except as noted and No edema Coding Level of Care Code Est Pt Level 3 (50821) Est Pt Prev Care 40-64y(02099) Diagnoses Encounter for general adult medical examination with abnormal findings Z00.01 Diabetes 1.5, managed as type 2 E13.9 Lipid disorder E78.9 Chronic GERD K21.9 Type 2 diabetes mellitus with diabetic polyneuropathy, with long-term current use of insulin E11.42; Z79.4 Diabetes mellitus 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 cloth finishing range operator insulin use: with chief cloth finishing range operator use Intellectual disability F79 Abnormal tandem walk R26.9 Balance problem R26.89 Additional Codes KENNETH-7 Assessment Billing - KENNETH-7 Assessment Tool: KENNETH-7 Assessment 71262 ([id number]) PHQ-9 - 69931 - PHQ-9 Billing: Yes ([id number]) Assessment & Plan Assessment & Plan (1) Encounter for general adult medical examination with abnormal findings: Code(s): Z00.01 - Encounter for general adult medical examination with abnormal findings Category: Medical (2) Diabetes 1.5, managed as type 2: Code(s): E13.9 - Other specified diabetes mellitus without complications Category: Medical (3) Lipid disorder: Code(s): E78.9 - Disorder of lipoprotein metabolism, unspecified Category: Medical (4) Chronic GERD: Code(s): K21.9 - Gastro-esophageal reflux disease without esophagitis Category: Medical (5) Type 2 diabetes mellitus with diabetic polyneuropathy: Code(s): E11.42 - Type 2 diabetes mellitus with diabetic polyneuropathy Category: Medical Qualifiers: Diabetes mellitus chief cloth finishing range operator insulin use: with chief cloth finishing range operator use Qualified Code(s): E11.42 - Type 2 diabetes mellitus with diabetic polyneuropathy; Z79.4 - USP (current) use of insulin (6) Intellectual disability: Code(s): F79 - Unspecified intellectual disabilities Category: Medical (7) Abnormal tandem walk: Code(s): R26.9 - Unspecified abnormalities of gait and mobility Category: Medical (8) Balance problem: Code(s): R26.89 - Other abnormalities of gait and mobility Category: Medical Plan Chief Complaint Routine follow-up and preventive health maintenance. Health Maintenance - Colonoscopy referral due to last year's missed appointment. - Laboratory tests ordered to monitor diabetes, last conducted in June. - Referral to podiatry due to a change in specialist. Dr. Jamison patient has appointment March 18 at 09:30 - Administered influenza vaccine today. Assessment and Plan 53-year-old male with a history of diabetes mellitus presenting for routine follow-up and preventive care. The patient missed his colonoscopy appointment last year, necessitating re-evaluation of his need for colon cancer screening. Diabetes management is ongoing, with last laboratory tests done in June, prompting new orders. Influenza vaccination is administered today to align with seasonal recommendations. The patient's foot care needs are to be addressed by a new furniture mover helper following the previous furniture mover helper's passing. 1. Foot Examination Following the passing of the previous furniture mover helper, the patient is to see Dr. Jamison for ongoing foot care. No new referral is necessary as this is already in place. 2. Need For Colon Cancer Screening A colonoscopy was recommended last year but not completed. A repeated referral request will be placed for the patient to arrange the screening. 3. Diabetes Mellitus Interim diabetes management continues, with laboratory tests ordered today to assess current metabolic control. The follow-up should continue with regular monitoring and adjustments as needed, following Dr. Valdez's recommendations for diabetic care. Patient suffers from diabetic neuropathy, his balance was off today he failed Romberg and tandem walk Patient Instructions - Arrange and attend the colonoscopy appointment as soon as the referral is processed. - Proceed with the laboratory tests today for diabetes monitoring. - Follow up with Dr. Jamison for foot care as scheduled. - Remain seated until the influenza vaccination is administered. - Call the office if new symptoms develop or existing symptoms worsen before the next scheduled visit. Follow-up six-month for routine 1 year physical exam Orders: Orders Complete Blood Count Auto Diff Today E11.42 - Type 2 diabetes mellitus with diabetic polyneuropathy, E13.9 - Other specified diabetes mellitus without complications, E78.9 - Disorder of lipoprotein metabolism, unspecified, F79 - Unspecified intellectual disabilities, K21.9 - Gastro-esophageal reflux disease without esophagitis, Z00.01 - Encounter for general adult medical examination with abnormal findings, Z79.4 - extension associate (current) use of insulin Comprehensive Met. Panel Today E11.42 - Type 2 diabetes mellitus with diabetic polyneuropathy, E13.9 - Other specified diabetes mellitus without complications, E78.9 - Disorder of lipoprotein metabolism, unspecified, F79 - Unspecified intellectual disabilities, K21.9 - Gastro-esophageal reflux disease without esophagitis, Z00.01 - Encounter for general adult medical examination with abnormal findings, Z79.4 - extension associate (current) use of insulin LDL Cholesterol Direct Today E11.42 - Type 2 diabetes mellitus with diabetic polyneuropathy, E13.9 - Other specified diabetes mellitus without complications, E78.9 - Disorder of lipoprotein metabolism, unspecified, F79 - Unspecified intellectual disabilities, K21.9 - Gastro-esophageal reflux disease without esophagitis, Z00.01 - Encounter for general adult medical examination with abnormal findings, Z79.4 - USP (current) use of insulin TSH reflex Free T4 Today E11.42 - Type 2 diabetes mellitus with diabetic polyneuropathy, E13.9 - Other specified diabetes mellitus without complications, E78.9 - Disorder of lipoprotein metabolism, unspecified, F79 - Unspecified intellectual disabilities, K21.9 - Gastro-esophageal reflux disease without esophagitis, Z00.01 - Encounter for general adult medical examination with abnormal findings, Z79.4 - extension associate (current) use of insulin Vitamin D 25-OH (D2 and D3) Today E11.42 - Type 2 diabetes mellitus with diabetic polyneuropathy, E13.9 - Other specified diabetes mellitus without complications, E78.9 - Disorder of lipoprotein metabolism, unspecified, F79 - Unspecified intellectual disabilities, K21.9 - Gastro-esophageal reflux disease without esophagitis, Z00.01 - Encounter for general adult medical examination with abnormal findings, Z79.4 - USP (current) use of insulin Hemoglobin A1c Today E11.42 - Type 2 diabetes mellitus with diabetic polyneuropathy, E13.9 - Other specified diabetes mellitus without complications, E78.9 - Disorder of lipoprotein metabolism, unspecified, F79 - Unspecified intellectual disabilities, K21.9 - Gastro-esophageal reflux disease without esophagitis, Z00.01 - Encounter for general adult medical examination with abnormal findings, Z79.4 - USP (current) use of insulin Microalbumin, Random (w Creat) Today E11.42 - Type 2 diabetes mellitus with diabetic polyneuropathy, E13.9 - Other specified diabetes mellitus without complications, E78.9 - Disorder of lipoprotein metabolism, unspecified, F79 - Unspecified intellectual disabilities, K21.9 - Gastro-esophageal reflux disease without esophagitis, Z00.01 - Encounter for general adult medical examination with abnormal findings, Z79.4 - USP (current) use of insulin Influenza [id number] Immunization Today Z23 - Encounter for immunization Medications: New Fluarix Triv [id number] (PF) (flu vacc [id number] 6mos up(PF)) 0.5 mL IM ONCE 0.5 mL 0RF NS Z23 - Encounter for immunization
[2024-01-08 11:39] VITALS: BP 120/70; PULSE 77; O2SAT 98
== END 2024-01-08 12:02 | disposition home or self-care (01) ==
PROVIDERS: PCP Internal Medicine; Visit Provider Internal Medicine
DX: Z00.00 Encounter for general adult medical examination without abnormal findings (principal); E11.42 Type 2 diabetes mellitus with diabetic polyneuropathy; Z79.4 Long term (current) use of insulin; E78.9 Disorder of lipoprotein metabolism, unspecified; K21.9 Gastro-esophageal reflux disease without esophagitis; F79 Unspecified intellectual disabilities; R26.89 Other abnormalities of gait and mobility; Z23 Encounter for immunization

== ENCOUNTER 2024-03-04 09:59 | Outpatient (AMB) | payer MEDICARE, MEDICAID, SELFPAY ==
[2024-03-04 10:09] VITALS: BP 130/74; PULSE 100; BMI 29.4
--- NOTE | 2024-03-04 10:09 | A.OFFVIS_ITS ---
Vital Signs 03/04/24 10:09 Height 5 ft 6 in Weight 181 lb 14.102 oz BMI 29.4 BP 130/74 Blood Pressure Location Lt brachial Position Sitting Pulse 100 Pulse Source Pulse Oximeter Intake Visit Reasons: T2DM/Confirmed Intake Note: Patient present today for Type 2 Diabetes Mellitus. Last Diabetic eye exam: 05/28/23 Last Podiatry Visit: Has upcoming appt 03/2024 Random Glucose: 116 mg/dl HgA1C: 7.9% 01/08/24 Powder Guard Required: No Accompanied by: HEAD FILTER PRESS TENDER Allergies No Known Allergies Allergy (Verified 03/04/24 10:16) Medication List - Last Reconciled 03/04/24 by Nelly Pabon PA-C acetaminophen 325 mg PO Q6H PRN alcohol swabs (Alcohol Wipes) 100 pad topical .4 x/day atorvastatin 40 mg PO BEDTIME Basaglar KwikPen U-100 Insulin (insulin glargine) 20 units (0.2 mL) subcut QAM NS blood sugar diagnostic ([place] Teddy Bear No Coding strips) Tests 4X/day blood-glucose meter ([place] Autocode Meter kit) Tests 4X/day blood-glucose sensor (FreeStyle Raúl 3 Sensor device) As directed change every 14 days disposable gloves As directed divalproex mg PO dulaglutide (Trulicity) 3 mg (0.5 mL) subcut QWEEK empagliflozin (Jardiance) 10 mg PO QAM hydroxyzine pamoate (Vistaril) 50 mg PO BEDTIME insulin aspart (niacinamide) 100 unit/mL (3 mL) (Fiasp FlexTouch U-100 Insulin) 5 units subcut BID lancets (Accu-Chek Softclix Lancets) As directed lancets (Prodigy Lancets) tests 4/day latex gloves (Latex Gloves, Medium) As directed lisinopril 2.5 mg PO DAILY metformin 1,000 mg PO BID omeprazole 20 mg PO QAM 90 days pen needle, diabetic (Comfort EZ Pen [place]) As directed injects 3 X/day pen needle, diabetic (BD Ultra-Fine Original Pen Needle) As directed risperidone 3 mg PO BID HPI HPI T2DM/Confirmed: Details: Patient is a 53-year-old male who presents today for a follow up regarding his diabetes. He does have a significant past medical history of intellectual disability, schizophrenia, type 2 diabetes, hyperlipidemia. He was last seen by Dr. Valdez in June. Endo: Dm-A1c is 7.8. He was diagnosed with diabetes 3-4 years ago. He is currently on metformin 1000 mg twice a day, fiasp 5 units twice a day, Basaglar 20 units daily, Trulicity 3 mg weekly, Jardiance 10 mg daily. States blood sugars have been around 120-160. He forgot his reader at home. His foster mother's on the phone today and states that blood sugars have been really good. He did have a low blood sugar at 78 1 time and she believes it was related to not eating. -his foster family endorses that he does have a lot of dietary indiscretions. This has somewhat improved since starting Trulicity again. Denies any adverse effects of this. He is on an CLIFF-inhibitor and statin. Up-to-date with ophthalmology. Up-to-date with podiatry. CV: Blood pressure today in the office is 130/74. He is on lisinopril 2.5 mg. Cholesterol is controlled with atorvastatin 40 mg. Last LDL was 95. LFTs WNL. No myalgias. Psych: Stable. Remains on Risperdal, hydroxyzine and Depakote. [facility] Medical History Type 2 diabetes mellitus with diabetic polyneuropathy DM2 (diabetes mellitus, type 2) Schizophrenia Hyperlipidemia LDL goal <100 Uncontrolled diabetes mellitus Chronic GERD Lipid disorder Surgical History History of back surgery History of knee surgery Hernia History of colonoscopy Family History Father Colon cancer Mother No problems noted. Brother No problems noted. Sister No problems noted. Social History Household Members: Other Household Members Other:: Shared living - [facility] Housing Housing: Assisted Living Facility (service net ) Alcohol intake: never Patient Tobacco Use Status: Current everyday Tobacco user Cigarette Packs Per Day: 1 e-Cigarette/Vaping Use: Never Used Current occupational status: disabled Cognitive needs: No Hearing needs: No Vision needs: Yes Physical Exam Vital Signs: Last Vital Signs Pulse 100 03/04/24 10:09 BP 130/74 03/04/24 10:09 BMI result Body Mass Index 29.4 Const Orientation/consciousness: patient oriented x3 HEENT Ears: hearing grossly normal bilaterally Neck Thyroid: Thyroid normal Lymphatic: no lymphadenopathy noted Resp Auscultation: clear to auscultation bilaterally Cardio Rate: regular rate Rhythm: regular rhythm Heart sounds: S1 normal heart sound present and S2 normal heart sound present Skin General skin exam: no rashes or lesions noted Neuro General: patient oriented x3, gait normal and no focal motor deficits Assessment & Plan Assessment & Plan (1) Type 2 diabetes mellitus with diabetic polyneuropathy: Code(s): E11.42 - Type 2 diabetes mellitus with diabetic polyneuropathy Category: Medical Qualifiers: Diabetes mellitus assisted insulin use: with terminal press operator use Qualified Code(s): E11.42 - Type 2 diabetes mellitus with diabetic polyneuropathy; Z79.4 - terminal press operator (current) use of insulin Plan: Continue current regimen. Follow up in 3 months. Follow up sooner if needed. Reviewed signs and symptoms of hyper and hypoglycemia that would require emergent medical treatment. (2) Hyperlipidemia LDL goal <100: Code(s): E78.5 - Hyperlipidemia, unspecified Category: Medical Plan: Continue atorvastatin. We will recheck labs prior to next appointment. Orders: Orders Hemoglobin A1c Today E11.42 - Type 2 diabetes mellitus with diabetic polyneuropathy, E78.5 - Hyperlipidemia, unspecified, R73.01 - Impaired fasting glucose, Z79.4 - group home (current) use of insulin Lipid Panel Today E11.42 - Type 2 diabetes mellitus with diabetic polyneuropathy, E78.5 - Hyperlipidemia, unspecified, Z79.4 - terminal press operator (current) use of insulin B Type Natriuretic Peptide Today E11.42 - Type 2 diabetes mellitus with diabetic polyneuropathy, E78.5 - Hyperlipidemia, unspecified, Z79.4 - terminal press operator (current) use of insulin Microalbumin, Random (w Creat) Today E11.42 - Type 2 diabetes mellitus with diabetic polyneuropathy, E78.5 - Hyperlipidemia, unspecified, Z79.4 - terminal press operator (current) use of insulin Comprehensive [place]. Panel Fast Today E11.42 - Type 2 diabetes mellitus with diabetic polyneuropathy, E78.5 - Hyperlipidemia, unspecified, Z79.4 - terminal press operator (current) use of insulin Coding Level of Care Code Est Pt Level 4 (38038) Complex EM visit Add On G2211 Diagnoses Type 2 diabetes mellitus with diabetic polyneuropathy, with long-term current use of insulin E11.42; Z79.4 Diabetes mellitus terminal press operator insulin use: with terminal press operator use Hyperlipidemia LDL goal <100 E78.5
[2024-03-04 10:35] LABS: Glucose, Whole Blood 116 mg/dL (60-115)
== END 2024-03-04 10:49 | disposition home or self-care (01) ==
PROVIDERS: PCP Internal Medicine; Visit Provider Physician Assistant
DX: E11.42 Type 2 diabetes mellitus with diabetic polyneuropathy (principal); Z79.4 Long term (current) use of insulin; E78.5 Hyperlipidemia, unspecified

== ENCOUNTER → 2024-03-04 09:59 | Outpatient (BNVA) | payer MEDICARE, MEDICAID, SELFPAY | PROVIDERS: PCP Internal Medicine; Visit Provider Physician Assistant | DX: E11.42 Type 2 diabetes mellitus with diabetic polyneuropathy (principal); E78.5 Hyperlipidemia, unspecified; Z79.4 Long term (current) use of insulin | CPT/HCPCS: 82947; 99212 ==

== ENCOUNTER → 2024-04-21 10:25 | Outpatient (BNVA) | payer MEDICARE, MEDICAID, SELFPAY | PROVIDERS: PCP Internal Medicine; Visit Provider Dietitian, Registered | DX: E11.65 Type 2 diabetes mellitus with hyperglycemia (principal) | CPT/HCPCS: 97803 ==

== ENCOUNTER → 2024-04-21 10:25 | Outpatient (AMB) | payer MEDICARE, MEDICAID, SELFPAY ==
--- NOTE | 2024-04-21 10:35 | A.OFFVIS_ITS ---
VS Expanded 04/21/24 10:36 Height 5 ft 6 in Weight 172 lb 9.951 oz BMI 27.9 Intake Visit Reasons: T2DM Allergies No Known Allergies Allergy (Verified 03/04/24 10:16) Nutrition Presentation Details: Pt presents for MNT f/u for T2DM Pt reports doing well, reports bg in the 120s in the fasting state Today will discuss vitamin D sources of foods to include in diet. BS Monitoring Most Recent Diabetes Results: Microalb/Creat Ratio 20.5 ug/mg cr (<30) 01/08/24 Creatinine 0.79 mg/dL (0.5-1.4) 01/08/24 Blood Urea Nitrogen 17 mg/dL (9-16) H 01/08/24 Sodium 139 mmol/L (135-145) 01/08/24 Potassium 4.0 mmol/L (3.3-5.1) 01/08/24 Chloride 100 mmol/L (96-108) 01/08/24 Carbon Dioxide 32 mmol/L (22-29) H 01/08/24 Calcium 9.2 mg/dL (8.4-10.2) 01/08/24 AST 20 U/L (5-37) 01/08/24 ALT 14 U/L (0-40) 01/08/24 Total Protein 6.9 g/dL (6.5-8.0) 01/08/24 Albumin 3.7 g/dL (3.5-5.0) 01/08/24 [facility] Medical History Type 2 diabetes mellitus with diabetic polyneuropathy DM2 (diabetes mellitus, type 2) Schizophrenia Hyperlipidemia LDL goal <100 Uncontrolled diabetes mellitus Chronic GERD Lipid disorder Surgical History History of back surgery History of knee surgery Hernia History of colonoscopy Family History Father Colon cancer Mother No problems noted. Brother No problems noted. Sister No problems noted. Social History Household Members: Other Household Members Other:: Shared living - [facility] Housing Housing: Assisted Living Facility (service net ) Alcohol intake: never Patient Tobacco Use Status: Current everyday Tobacco user Cigarette Packs Per Day: 1 e-Cigarette/Vaping Use: Never Used Current occupational status: disabled Cognitive needs: No Hearing needs: No Vision needs: Yes Assessment & Plan Assessment & Plan (1) Uncontrolled diabetes mellitus: Comment: Recommend monitoring labs for vitamins B deficiency related to history of type 2 DM with neuropathy and long-term history treatment with metformin Code(s): E11.65 - Type 2 diabetes mellitus with hyperglycemia Category: Medical Qualifiers: Diabetes mellitus type: type 2 Glycemic state: with hyperglycemia Qualified Code(s): E11.65 - Type 2 diabetes mellitus with hyperglycemia Plan: wt 78 Kg (04/2024) Est kcal needs as per MSJ: 2200 (40% carb, 30% protein/fat) Est fluid needs as per 30 ml/d: 2300 Est prot per day as per 1 g/kg bw: 76 Recommend fiber intake : 8-10 g per day and gradually increase to 25-28 g per day for women and 35-38 g for men or as tolerated Recommend sodium intake per day : less than 2000 mg Educated patient on: ( R = reviewed V = verbalizes understanding N/R = needs review N/A = not applicable * Food sources of carbohydrate, adequate serving sizes and its role in various health conditions: R * Differences between complex carbohydrates a simple carbohydrates, role of fiber in diet: NR * Differences between types of fats and role in diet (mono on saturated fat fatty acids, saturated fatty acids, trans fats): R , basic low fat * Food sources of sodium in salt and healthy modifications for heart health in kidney health: NR * Healthy plate method concept: R * vitamins: Vit D sources of foods, b vitamins * Physical activity: Benefits a precaution: R * Hypoglycemia protocol (rule of 15): R, V * Dietary prevention of Hyperglycemia: R Patient Instructions: Include vitamin D sources of foods in your diet (lactose free milk , fortified milk alternatives,yogurt, cheese - have at least 2 cups of dairy per day a day , include canned salmon/tuna/sardines at least twice a week may recommend taking a daily multivitamin - choose one with verification code(fci as example) Coding Level of Care Code Nutr Indiv Subseq (73169) Diagnoses Uncontrolled type 2 diabetes mellitus with hyperglycemia E11.65 Diabetes mellitus type: type 2 Glycemic state: with hyperglycemia Time Spent (min) 30
[2024-04-21 10:36] VITALS: BMI 27.9
--- OUTSIDE RECORDS SUMMARY | 2024-04-21 12:24 | XMS_ITS | Clinical Summary ---
Author Organization [facility] Address [address] [facility] [address] [place] [address] Phone Care Team Providers Care Impersonator Character Name Role Phone Mauro Zambrano MD Primary Care Provider [phone] Medications Acetaminophen (Tylenol) 325 MG capsule Take 1 capsule by mouth 4 (four) times a day Active cloNIDine (CATAPRES) 0.1 MG tablet Take 1 tablet by mouth 3 (three) times a day Active dextromethorpha n-guaiFENesin (Diabetic Tussin DM) 10-100 MG/5ML liquid Take by mouth Active divalproex (Depakote) 500 MG EC tablet Take 5 tablets by mouth 1 (one) time each day Active glipiZIDE-metFO RMIN (METAGLIP) 5-500 MG per tablet Take 1 tablet by mouth 2 (two) times a day Active hydrOXYzine (Vistaril) 50 MG capsule Take 1 capsule by mouth Active lisinopril (PRINIVIL,ZESTR IL) 2.5 MG tablet Take 1 tablet by mouth 1 (one) time each day Active omeprazole (PriLOSEC) [address] capsule Take 1 capsule by mouth 1 (one) time each day Active pioglitazone (Actos) 15 MG tablet Take 1 tablet by mouth 1 (one) time each day Active risperiDONE (RisperDAL) 3 MG tablet Take 1 tablet by mouth 2 (two) times a day Active simvastatin (ZOCOR) 20 MG tablet Take 1 tablet by mouth 1 (one) time each day Active Active Problems Problem Noted Date Diagnosed Date 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 Immunizations Name Administration Dates Next Due Tdap 04/12/2019,10/26/2018 Family History Relation Status Comments Father Mother Social History Tobacco Use Types Packs/Day Years Used Date Smoking Tobacco: Every Day Cigarettes Sex and Gender Information Value Date Recorded Sex Assigned at Not on file Legal Sex Male 4:53 PM EST Gender Identity Not on file Sexual Orientation Not on file Last Filed Vital Signs Vital Sign Reading Time Taken Comments Blood Pressure 122/70 04/21/2019 12:00 PM EST Pulse - - Temperature - - Respiratory Rate - - Oxygen Saturation - - Inhaled Oxygen Concentration - - Weight 87.3 kg (192 lb 6.4 oz) 04/21/2019 12:00 PM EST Height 167.6 cm (5' 6 ) 04/21/2019 12:00 PM EST Body Mass Index 31.05 04/21/2019 12:00 PM EST Plan of Treatment Health Maintenance Due Date Last Done Comments Pneumococcal Vaccine: Pediat rics (0 to 5 Years) and At-Risk Patients (6 to 64 Years) (1 of 2 - PCV) 1974 Hepatitis B Vaccine (1 of 3 - 19+ 3-dose series) 03/22 Colorectal Cancer Screening: Annual FOBT 2017 Colorectal Cancer Screening: Colonoscopy 2017 Colorectal Cancer Screening: Sigmoidoscopy 2017 Influenza Vaccine (#1) 2023 Insurance [place] Care Teams Impersonator Character Relationship Specialty Start Date End Date Mauro Zambrano MD [facility] [place], [place] [id number] PCP - General 02/27/20
--- OUTSIDE RECORDS SUMMARY | 2024-04-21 12:25 | XMS_ITS ---
Author Organization [facility] Address [address] [place] [address] Care Team Providers Care Instrument Maker Name Role Phone Juan Manuel Wade Primary Care Provider Kena Metcalf [phone] Encounters Encounter Location Date Provider Diagnosis [address] [address] 03/18/2024 Kena Jamison Plan Of Treatment No Information Progress Notes * Piotr RINALDIDOB:1970 ([age] yo M)Acc No.[id number]:03/18/2024 Progress Notes Patient:?Piotr RINALDI Provider:?Kena Jamison DPM :1970???Age:53 Y???Sex:Male Kevan e:03/18/2024 Address:[address] [facility] Pcp:Juan Manuel Wade Subjective: * Chief Complaints: * ??? * Medical History:? Objective: * Vitals:? Assessment: Plan: * Treatment: * Images: * The named appointment provid er may or may not be the originator of this progress note, and it is not deemed complete until electronically signed by the appointment provider. Sign off status: Pending * Provider:?Kena Jamison DPM Date:?2024 Generated for Watson espinal/Kitty/Celsoitting on:?04/21/2024 12:24 PM EST
--- OUTSIDE RECORDS SUMMARY | 2024-04-21 12:25 | XMS_ITS | Continuity of Care Document ---
Author Organization [facility] Address [address] [place] [address]- Care Team Providers Care Soil Engineer Name Role Phone Juan Manuel ANN, Asma Primary Care Physician [phone] Encounter [facility] Date(s): 03/18/24 - 04/17/24 [facility] [address] [place] [address] Encounter Type: Triage Allergies, Adverse Reactions, Alerts No Known Allergies Immunizations Given and Recorded Vaccine Date Status Refusal Reason tetanus/diphtheria/pertussis, acel(Tdap) 04/12/19 Given tetanus/diphtheria/pertussis, acel(Tdap) 10/26/18 Given Medications cloNIDine 0.1 mg oral tablet 0.1 mg, 1, tablet, By Mouth, 2 times a day, # 60 tablet, Refills 0, Maintenance, 08/26/16 11:18:26 AM EDT Start Date: 08/26/16 Status: Ordered Quantity: 60.0 Unit: tablet Repeat number: 1 cloNIDine 0.2 mg oral tablet 0.2 mg, 1, tablet, By Mouth, Daily, PRN, # 60 tablet, Refills 0, Maintenance, Anxiety, 08/26/16 11:18:37 AM EDT Start Date: 08/26/16 Status: Ordered Quantity: 60.0 Unit: tablet Repeat number: 1 Depakote 500 mg oral enteric coated tablet 3 tablet = 1,500 mg, By Mouth, Daily in AM, # 90 tablet, 0 Refills, Maintenance, 08/26/16 11:16:40 AM EDT, EC Tablet Start Date: 08/26/16 Status: Ordered Quantity: 90.0 Unit: tablet Repeat number: 1 Depakote 500 mg oral enteric coated tablet 2 tablet = 1,000 mg, By Mouth, Daily at bedtime, # 90 tablet, 0 Refills, Maintenance, 08/26/16 11:16:52 AM EDT, EC Tablet Start Date: 08/26/16 Status: Ordered Quantity: 90.0 Unit: tablet Repeat number: 1 metFORMIN 500 mg oral tablet 1 tablet = 500 mg, By Mouth, 2 times a day, # 180 tablet, 0 Refills, Maintenance, 08/26/16 11:18:53 AM EDT, Tablet Start Date: 08/26/16 Status: Ordered Quantity: 180.0 Unit: tablet Repeat number: 1 RisperDAL 3 mg oral tablet 3 mg, 1, tablet, By Mouth, 2 times a day, # 60 tablet, Refills 0, Maintenance, 08/26/16 11:18:08 AM EDT Start Date: 08/26/16 Status: Ordered Quantity: 60.0 Unit: tablet Repeat number: 1 simvastatin 10 mg oral tablet 10 mg, 1, tablet, By Mouth, Daily at bedtime, # 30 tablet, Refills 0, Maintenance, 08/26/16 11:16:02AM EDT Start Date: 08/26/16 Status: Ordered Quantity: 30.0 Unit: tablet Repeat number: 1 Patient Care team information Care Team Personnel Name: Juan Manuel ANN, Asma Position: Reference Physician Member Role: PCP Address: [address] [place] [address] Telecom: Care Team Related Persons Name: CASEY FERRARI Name: REINA PAREDES Insurance Providers Guarantor name: NA Health Plan Information #: 1 Payer: MEDICARE PART B OUTPT Member Number: NA Policy Number: NA Group Number: NA Health Plan Information #: 2 [facility] Member Number: NA Policy Number: NA Group Number: NA
--- OUTSIDE RECORDS SUMMARY | 2024-04-21 12:25 | XMS_ITS | Clinical Summary ---
Author Organization [facility] Address [address] [place] [address] Phone Care Team Providers Care Dental Office Assistant Name Role Phone Mauro Zambrano MD Primary Care Provider [phone] Social History Tobacco Use Types Packs/Day Years Used Date Smoking Tobacco: Never Assessed Sex and Gender Information Value Date Recorded Sex Assigned at Not on file Legal Sex Male 7:57 PM EST Gender Identity Not on file Sexual Orientation Not on file Plan of Treatment Health Maintenance Due Date Last Done Comments DTaP,Tdap,and Td Vaccines (1 - Tdap) 1987 Hepatitis B Vaccines (1 of 3 - 19+ 3-dose series) 1987 Pneumococcal Vaccine: 50+ Ye ars (1 of 1 - PCV) 2018 Zoster Vaccines (1 of 2) 2018 COVID-19 Vaccine (2023-2 5 season) 2023 Influenza Vaccine (#1) 2023 Cholesterol Screening (Lipid Panel) 12/05/2023 Colorectal Cancer Screening: Colonoscopy 12/05/2023 Depression Screening 12/05/2023 HIV Screening 12/05/2023 Hepatitis C Screening 12/05/2023 Medicare Annual Wellness Visit 12/05/2023 Social Influencers of Health Screening 12/05/2023 HIB Vaccines Aged Out No longer eligi ble based on patient's age to complete this topic HPV Vaccines Aged Out No longer eligi ble based on patient's age to complete this topic Hepatitis A Vaccines Aged Out No long er eligible based on patient's age to complete this topic IPV Vaccines Aged Out No longer eligi ble based on patient's age to complete this topic MMR Vaccines Aged Out No longer eligi ble based on patient's age to complete this topic Meningococcal ACWY Vaccine Aged Out N o longer eligible based on patient's age to complete this topic Meningococcal B Vacine Aged Out No lo nger eligible based on patient's age to complete this topic Pneumococcal Vaccine: Pediat rics (0 to 5 Years) and At-Risk Patients (6 to 64 Years) Aged Out No longer eligible b ased on patient's age to complete this topic RSV Immunization Patients Un sean 20 months Aged Out No longer eligible b ased on patient's age to complete this topic Varicella Vaccines Aged Out No longer eligible based on patient's age to complete this topic Insurance MEDICARE MEDICAID - [place] Care Teams Dental Office Assistant Relationship Specialty Start Date End Date Mauro Zambrano MD [address] [place] [address] PCP - General 11/18/23
--- OUTSIDE RECORDS SUMMARY | 2024-04-21 12:25 | XMS_ITS | Patient Health Record ---
Author Organization [facility] Address [address] [place] [address] Care Team Providers Care Engine Repairer Service Name Role Phone MayelaJuan Manuel barrera Primary Care Provider Kena Metcalf [phone] Reason For Referral No Information Encounters Encounter Location Date Provider Diagnosis [facility] [address] [place] [address] 01/08/2024 Kena Jamison [address] [address] 03/11/2024 Kena Jamison Plan Of Treatment No Information Insurance Providers Payer Name Payer Address Payer Phone Subscriber Number Group Number Insured Name Patient Relationship to Insured Coverage Start Date Coverage End Date Medicare [employer] [address] [place] [address] [id number] Piotr Moore Self - patient is the insured
--- OUTSIDE RECORDS SUMMARY | 2024-04-21 12:25 | XMS_ITS ---
Author Organization [facility] Address [address] [place] [address] Care Team Providers Care Riveter Portable Machine Name Role Phone Juan Manuel Wade Primary Care Provider Unavailabl e Black, Kena Unavailable [phone] REASON FOR VISIT [facility] Encounters Encounter Location Date Provider Diagnosis [facility] [address] [place] [address] 01/08/2024 Kena Black Plan Of Treatment No Information Progress Notes * Piotr RINALDIDOB:1970 ([age] yo M)Acc No.[id number]:01/08/2024 Patient:?Piotr RINALDI :1970???Age:53 Y???Sex:Male Address[facility] [facility] [address] * true * Date:? Generated for Watson espinal/Kitty/eTransmitting on:?04/21/2024 12:24 PM EST
--- OUTSIDE RECORDS SUMMARY | 2024-04-21 12:25 | XMS_ITS | Continuity of Care Document ---
Author Organization [facility] Address [address] [place] [address]- Care Team Providers Care Hands Parter Name Role Phone Juan Manuel ANN, Asma Primary Care Physician [phone] Encounter [facility] [place] [facility] Date(s): 03/16/24 - 04/15/24 [facility] [address] [place] [address] Encounter Type: Triage Allergies, Adverse [...] Position: Reference Physician Member Role: PCP Address: [address] [place] [address] Telecom: Care Team Related Persons Name: CASEY FERRARI Name: REINA PAREDES Insurance Providers Guarantor name: NA Health Plan Information #: 1 Payer: MEDICARE PART B OUTPT Member Number: NA Policy Number: NA Group Number: NA Health Plan Information #: 2 Payer: [facility] Member Number: NA Policy Number: NA Group Number: NA
--- OUTSIDE RECORDS SUMMARY | 2024-04-21 12:25 | XMS_ITS ---
Author Organization [facility] Address [address] [place] [address] Care Team Providers Care Shoe Repair Supervisor Name Role Phone Juan Manuel Wade Primary Care Provider Unavailabl e Black, Kena Unavailable [phone] REASON FOR VISIT CX NPappt 03/18/24 Encounters Encounter Location Date Provider Diagnosis [address] [address] 03/11/2024 Kena Black Plan Of Treatment No Information Progress Notes * Piotr RINALDIDOB:1970 ([age] yo M)Acc No.[id number]:03/11/2024 Patient:?Piotr RINALDI :1970???Age:53 Y???Sex:Male Address:[address] [place], [address] * true * Date:? Generated for Corwini teddy/Kitty/eTransmitting on:?04/21/2024 12:24 PM EST
== END ==
PROVIDERS: PCP Internal Medicine; Visit Provider Dietitian, Registered
DX: E11.65 Type 2 diabetes mellitus with hyperglycemia (principal)

== ENCOUNTER 2024-07-01 10:02 | Outpatient (AMB) | payer MEDICARE, MEDICAID, SELFPAY ==
[2024-07-01 10:04] VITALS: BP 120/70; PULSE 80; BMI 29.4
--- NOTE | 2024-07-01 10:04 | A.OFFVIS_ITS ---
Vital Signs 07/01/24 10:04 Height 5 ft 6 in Weight 182 lb 5.156 oz BMI 29.4 BP 120/70 Blood Pressure Location Lt brachial Position Sitting Pulse 80 Pulse Source Pulse Oximeter Intake Visit Reasons: T2DM Intake Note: Patient present today for Type 2 Diabetes Mellitus Last Diabetic eye exam: 05/2023 Last Podiatry Visit: Doesn't have one Random Glucose: 169 mg/dl HgA1C: 8.9% Metal Expediter Required: No Accompanied by: PLYWOOD FACTORY WORKER Allergies No Known Allergies Allergy (Verified 07/01/24 10:09) Medication List - Last Reconciled 07/01/24 by Nelly Pabon PA-C acetaminophen 325 mg PO Q6H PRN alcohol swabs (Alcohol Wipes) 100 pad topical .4 x/day atorvastatin 40 mg PO BEDTIME Basaglar KwikPen U-100 Insulin (insulin glargine) 20 units (0.2 mL) subcut QAM NS blood sugar diagnostic (KnewCoin No Coding strips) Tests 4X/day blood-glucose meter (KnewCoin Autocode Meter kit) Tests 4X/day blood-glucose sensor (Ultromex Raúl 3 Sensor device) As directed change every 14 days clonidine HCl 0.1 mg PO TID disposable gloves As directed divalproex mg PO divalproex ER (Depakote ER) 1,000 mg PO DAILY dulaglutide (Trulicity) 3 mg (0.5 mL) subcut QWEEK empagliflozin (Jardiance) 10 mg PO QAM hydroxyzine pamoate (Vistaril) 50 mg PO BEDTIME insulin aspart (niacinamide) 100 unit/mL (3 mL) (Fiasp FlexTouch U-100 Insulin) 5 units subcut BID lancets (Accu-Chek Softclix Lancets) As directed lancets (Prodigy Lancets) tests 4/day latex gloves (Latex Gloves, Medium) As directed lisinopril 2.5 mg PO DAILY lisinopril (Zestril) 2.5 mg PO DAILY metformin 1,000 mg PO BID omeprazole 20 mg PO QAM 90 days pen needle, diabetic (BD Yennifer 2nd Gen Pen Needle) Use 3 times a day As directed risperidone 3 mg PO BID HPI HPI T2DM: Details: Patient is a 54-year-old male who presents today for a follow up regarding his diabetes. He does have a significant past medical history of intellectual disability, schizophrenia, type 2 diabetes, hyperlipidemia. He forgot to get labs done prior to appointment Endo: Dm-last A1c was 7.9. He was diagnosed with diabetes 3-4 years ago. He is currently on metformin 1000 mg twice a day, fiasp 5 units twice a day, Basaglar 20 units daily, Trulicity 3 mg weekly, Jardiance 10 mg daily. States blood sugars have been around 90-140. He lost his reader a few days ago. His foster mother's on the phone today and states that blood sugars have been really good. He did have a low blood sugar at 78 1 time and she believes it was related to not eating. He is on an CLIFF-inhibitor and statin. Up-to-date with ophthalmology. Up-to-date with podiatry. -scheduled next month CV: Blood pressure today in the office is 120/70. He is on lisinopril 2.5 mg. Cholesterol is controlled with atorvastatin 40 mg. Last LDL was 113. LFTs WNL. No myalgias. Overdue for labs Psych: Stable. Remains on Risperdal, hydroxyzine and Depakote. [facility] Medical History Type 2 diabetes mellitus with diabetic polyneuropathy DM2 (diabetes mellitus, type 2) Schizophrenia Hyperlipidemia LDL goal <100 Uncontrolled diabetes mellitus Chronic GERD Lipid disorder Surgical History History of back surgery History of knee surgery Hernia History of colonoscopy Family History Father Colon cancer Mother No problems noted. Brother No problems noted. Sister No problems noted. Social History Household Members: Other Household Members Other:: Shared living - [facility] Housing Housing: Assisted Living Facility (service net ) Alcohol intake: never Patient Tobacco Use Status: Current everyday Tobacco user Cigarette Packs Per Day: 1 e-Cigarette/Vaping Use: Never Used Current occupational status: disabled Cognitive needs: No Hearing needs: No Vision needs: Yes Physical Exam Vital Signs: Last Vital Signs Pulse 80 07/01/24 10:04 BP 120/70 07/01/24 10:04 BMI result Body Mass Index 29.4 Const Orientation/consciousness: patient oriented x3 HEENT Ears: hearing grossly normal bilaterally Neck Neck: Yes no lymphadenopathy Thyroid: Thyroid normal Carotids: no bruits Lymphatic: no lymphadenopathy noted Resp Auscultation: clear to auscultation bilaterally Cardio Rate: regular rate Rhythm: regular rhythm Heart sounds: S1 normal heart sound present and S2 normal heart sound present Peripheral pulses: dorsalis pedis present Skin General skin exam: no rashes or lesions noted Neuro General: patient oriented x3, gait normal and no focal motor deficits Extrem Other: Monofilament sensation intact bilaterally. Vibratory sensation intact bilaterally. Skin intact. Calluses noted on the bilateral feet. Toenails are thickened and yellowish. Results AMB Hemoglobin A1c AMB Hemoglobin A1c 8.9 % Last Edit by PIPER Georges on 07/01/24 10:29 Results Reviewed Results Reviewed: Laboratory Last Values Hgb A1c (Clinic) 8.9 % (4.0-6.0) H 07/01/24 10:16 Laboratory Tests 01/08/24 03/04/24 12:15 10:20 Creatinine 0.79 Estimated GFR > 60 Glucose (Clinic) 116 H Hemoglobin A1c % 7.9 H LDL Cholesterol Direct 113 H Assessment & Plan Assessment & Plan (1) Uncontrolled diabetes mellitus: Comment: Recommend monitoring labs for vitamins B deficiency related to history of type 2 DM with neuropathy and long-term history treatment with metformin Code(s): E11.65 - Type 2 diabetes mellitus with hyperglycemia Category: Medical Qualifiers: Diabetes mellitus type: type 2 Glycemic state: with hyperglycemia Qualified Code(s): E11.65 - Type 2 diabetes mellitus with hyperglycemia Plan: Increase Trulicity to 4.5 mg weekly, continue Jardiance and metformin Continue insulin dosing as he does not have a reader and has not been finger sticking blood sugars. [place] reordered today. Advised to bring this into next appointment. Advised him to complete labs prior to appointment. (2) Hyperlipidemia LDL goal <100: Code(s): E78.5 - Hyperlipidemia, unspecified Category: Medical Plan: Lipids and LFTs ordered. We will follow up pending test results. Orders: Orders AMB Hemoglobin A1c Today E11.42 - Type 2 diabetes mellitus with diabetic polyneuropathy, E11.65 - Type 2 diabetes mellitus with hyperglycemia, Z13.9 - Encounter for screening, unspecified, Z79.4 - skilled nursing (current) use of insulin Medications: New blood-glucose,zipper sewing machine operator,cont (FreeStyle Raúl 3 [place]) Use daily As directed to monitor blood glucose 1 ea 0RF E11.65 - Type 2 diabetes mellitus with hyperglycemia, Z79.4 - skilled nursing (current) use of insulin blood-glucose sensor (FreeStyle Raúl 3 Plus Sensor device) Use daily As directed to monitor glucose 2 ea 5RF E08.29 - Diabetes mellitus due to underlying condition with other diabetic kidney complication, R80.9 - Proteinuria, unspecified, Z79.4 - buttermaker continuous churn (current) use of insulin dulaglutide (Trulicity) 4.5 mg (0.5 mL) subcut QWEEK 2 mL 3RF Discontinued dulaglutide (Trulicity) Discontinued Reason: Doctor's Order 3 mg (0.5 mL) subcut QWEEK 2 mL 6RF Coding Level of Care Code Est Pt Level 4 (73826) Complex EM visit Add On G2211 Diagnoses Uncontrolled type 2 diabetes mellitus with hyperglycemia E11.65 Diabetes mellitus type: type 2 Glycemic state: with hyperglycemia Hyperlipidemia LDL goal <100 E78.5
--- OUTSIDE RECORDS SUMMARY | 2024-07-01 10:23 | XMS_ITS | Clinical Summary ---
Author Organization [facility] Address [address] [place] [address] Phone Care Team Providers Care Industrial Security Analyst Name Role Phone Mauro Zambrano MD Primary Care Provider Social History Tobacco Use Types Packs/Day Years [...] 2018 COVID-19 Vaccine (2023-2 5 season) 2023 Cholesterol Screening (Lipid Panel) 12/05/2023 Colorectal Cancer Screening: Colonoscopy 12/05/2023 Depression Screening 12/05/2023 HIV Screening 12/05/2023 Hepatitis C Screening 12/05/2023 Medicare Annual Wellness Visit 12/05/2023 Social Influencers of Health Screening 12/05/2023 Influenza Vaccine (Season Ended) 2024 HIB Vaccines Aged Out No longer eligi [...] age to complete this topic Meningococcal B Vaccine Aged Out No l onger eligible based on patient's age to complete [...] Insurance MEDICARE MEDICAID - [place] Care Teams Industrial Security Analyst Relationship Specialty Start Date End Date Mauro Zambrano MD [address] [place] [address] PCP - General 11/18/23
--- OUTSIDE RECORDS SUMMARY | 2024-07-01 10:23 | XMS_ITS ---
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 Generated for Watson espinal/Kitty/eTransmitting on:?07/01/2024 10:23 AM EDT
--- OUTSIDE RECORDS SUMMARY | 2024-07-01 10:23 | XMS_ITS ---
Author Organization [facility] Address [address] [place] [address] Care Team Providers Care Inspector Cold Working Name Role Phone Juan Manuel Wade Primary Care Provider Kena Metcalf [phone] Encounters Encounter Location Date Provider Diagnosis [address] [address] 03/18/2024 Kena Jamison Plan Of Treatment No Information Progress Notes * Piotr RINALDIDOB:1970 ([age] yo M)Acc No.[id number]:03/18/2024 Progress Notes Patient:?Piotr RINALDI Provider:?Kena Jamison DPM :1970???Age:53 Y???Sex:Male Kevan e:03/18/2024 Address:[address] [facility] ([place], [place])[address] [facility] Pcp:Juan Manuel Wade Subjective: * Chief Complaints: * ??? * Medical History:? Objective: * Vitals:? Assessment: Plan: * Treatment: * Images: * The named appointment provid er may or may not be the originator of this progress note, and it is not deemed complete until electronically signed by the appointment provider. Sign off status: Pending * Provider:?Kena Jamison DPM Date:?2024 Generated for Watson espinal/Kitty/eTjayjaysmitting on:?07/01/2024 10:23 AM EDT
--- OUTSIDE RECORDS SUMMARY | 2024-07-01 10:23 | XMS_ITS ---
Author Organization [facility] Address [address] [place] [address] Care Team Providers Care Link Trainer Operator Name Role Phone Juan Manuel Wade Primary Care Provider Unavailabl e Black, Kena Unavailable [phone] REASON FOR VISIT CX NPappt 03/18/24 Encounters Encounter Location Date Provider Diagnosis [address] [address] 03/11/2024 Kena Black Plan Of Treatment No Information Progress Notes * Piotr RINALDIDOB:1970 ([age] yo M)Acc No.[id number]:03/11/2024 Patient:?Piotr RINALDI :1970???Age:53 Y???Sex:Male Address:[address] [place], [address] * true * Date:? Generated for Printi ng/Facristineg/eTransmitting on:?07/01/2024 10:23 AM EDT
--- OUTSIDE RECORDS SUMMARY | 2024-07-01 10:23 | XMS_ITS | Patient Health Record ---
Author Organization [facility] Address [address] [place] [address] Care Team Providers Care Cardiovascular Technician Name Role Phone MayelaJuan Manuel barrera Primary Care Provider Kena Metcalf [phone] Reason For Referral No Information Encounters Encounter Location Date Provider Diagnosis [facility] [address] [place] [address] 01/08/2024 Kena Jamison [address] [address] 03/11/2024 Kena Jamison Plan Of Treatment No Information Insurance Providers Payer Name Payer Address Payer Phone Subscriber Number Group Number Insured Name Patient Relationship to Insured Coverage Start Date Coverage End Date Medicare National [employer] [address] [place] [address] [id number] Piotr Moore Self - patient is the insured
--- OUTSIDE RECORDS SUMMARY | 2024-07-01 10:23 | XMS_ITS | Clinical Summary ---
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 Immunizations Immunization Administration Dates Next Due Tdap 04/12/2019,10/26/2018 Family [...] Health Maintenance Due Date Last Done Comments Hepatitis B Vaccine (1 of 3 - 19+ 3-dose series) 03/22 Pneumococcal Vaccine: 50+ Years (1 of 2 - PCV) 988 Colorectal Cancer Screening: Annual FOBT 2017 Colorectal Cancer Screening: Colonoscopy 2017 Colorectal Cancer Screening: Sigmoidoscopy 2017 Influenza Vaccine (Season Ended) 2024 Insurance Medicare Medicaid [place] Care Teams Crown Attacher Relationship Specialty Start Date End Date Mauro Zambrano MD [address] [place] [address] PCP - General 02/27/20
[2024-07-01 10:31] LABS: Glucose, Whole Blood 169 mg/dL (60-115)
== END 2024-07-01 10:33 | disposition home or self-care (01) ==
LOC: HO.ENCR 10:03
PROVIDERS: PCP Internal Medicine; Visit Provider Physician Assistant
DX: Z13.9 Encounter for screening, unspecified (principal); E11.65 Type 2 diabetes mellitus with hyperglycemia; E11.42 Type 2 diabetes mellitus with diabetic polyneuropathy; Z79.4 Long term (current) use of insulin; E78.5 Hyperlipidemia, unspecified

== ENCOUNTER 2024-07-01 10:02 | Outpatient (REF) | payer MEDICARE, MEDICAID, SELFPAY ==
[2024-07-01 12:40] LABS: Estimated Average Glucose 197 mg/dL; Hemoglobin A1C 253.6246 umol/L; Hemoglobin A1c % 8.5 % (<6.0); Total Hemoglobin (HGBA1C) 3666.7924 umol/L
[2024-07-01 12:58] LABS: Alanine Aminotransferase 17 U/L (0-40); Albumin Level 3.7 g/dL (3.5-5.0); Alkaline Phosphatase 95 U/L (39-117); Anion Gap 11 (12-20); Aspartate Amino Transferase 21 U/L (5-37); Bilirubin Total 0.2 mg/dL (0.0-1.0); Blood Urea Nitrogen 19 mg/dL (9-16); Calcium 9.6 mg/dL (8.4-10.2); Carbon Dioxide 31 mmol/L (22-29); Chloride 102 mmol/L (96-108); Cholesterol 214 mg/dL (<200); Estimated Glomerular Filt Rate > 60; Glucose Fasting 139 mg/dL (60-99); HDL Cholesterol 38 mg/dL (>40); LDL Cholesterol Calculated 135 mg/dL (<100); Potassium 4.5 mmol/L (3.3-5.1); Sodium 139 mmol/L (135-145); Total Protein 6.9 g/dL (6.5-8.0); Triglycerides 206 mg/dL (<150)
[2024-07-01 13:03] LABS: B Type Natriuretic Peptide 10 pg/mL (<100)
[2024-07-01 14:16] LABS: Creatinine Urine 62.87 mg/dL; Microalbumin Urine < 5.0 mg/L
== END 2024-07-01 10:03 | disposition home or self-care (01) ==
LOC: HO.LAB 10:02
PROVIDERS: PCP Internal Medicine; Visit Provider Physician Assistant
DX: E11.42 Type 2 diabetes mellitus with diabetic polyneuropathy (principal); E11.65 Type 2 diabetes mellitus with hyperglycemia; Z79.4 Long term (current) use of insulin; Z79.85 Long-term (current) use of injectable non-insulin antidiabetic drugs; E78.5 Hyperlipidemia, unspecified; Z12.11 Encounter for screening for malignant neoplasm of colon
CPT/HCPCS: 36415; 80053; 80061; 82043; 82570; 82947; 83036; 83880; 99212

== ENCOUNTER 2024-07-01 10:44 | Outpatient (AMB) | payer MEDICARE, MEDICAID, SELFPAY ==
--- OUTSIDE RECORDS SUMMARY | 2024-07-01 11:15 | XMS_ITS | Clinical Summary ---
Author Organization [facility] Address [address] [place] [address] Phone Care Team Providers Care Lead Application Architect Name Role Phone Mauro Zambrano MD Primary Care Provider [phone] Social History Tobacco Use Types Packs/Day Years [...] Insurance MEDICARE MEDICAID - [place] Care Teams Lead Application Architect Relationship Specialty Start Date End Date Mauro Zambrano MD [address] [place] [address] PCP - General 11/18/23
--- OUTSIDE RECORDS SUMMARY | 2024-07-01 11:15 | XMS_ITS | Clinical Summary ---
Author Organization [facility] Address [address] [place] [address] Phone Care Team Providers Care Retail Pharmacist Name Role Phone Mauro Zambrano MD Primary Care Provider [phone] Medications Acetaminophen (Tylenol) 325 MG capsule Take [...] Medicaid [place] Care Teams Retail Pharmacist Relationship Specialty Start Date End Date Mauro Zambrano MD [address] [place] [address] PCP - General 02/27/20
--- NOTE | 2024-07-01 11:16 | MHC.OFFVIS ---
Vital Signs 07/01/24 11:25 Height 5 ft 6 in Weight 182 lb BMI 29.4 BP 120/70 Blood Pressure Location Rt brachial Position Sitting Pulse 80 Pulse Source Pulse Oximeter Pulse Oximetry (%) 96 Oxygen Delivery Method Room Air Intake Visit Reasons: Colonoscopy Screening Intake Note: NEW PATIENT for initial / routine colo. FMHx of CRC (Father - ) CC; Pt denies any GI sx at this time. Pt stable on PPI. Front Desk Auxiliary Required: No Accompanied by: Other Relationship Allergies No Known Allergies Allergy (Verified 07/01/24 11:18) HPI HPI Colonoscopy Screening: Details: 54 year old? male with past medical history of diabetes, hyperlipidemia, intellectual disability, schizophrenia is here today for pre colonoscopy screening.? Patient is accompanied by [facility]. Patient lives in adult foster care Patient was sent to us by his PCP.? This is his first colonoscopy screening.? Patient denies any gastrointestinal symptoms in the past or at present.? Denies any personal or family history of colon cancer, however he is not sure if his father was diagnosed with prostate or colon cancer.? Denies history of difficulty with sedation or anesthesia in the past.? Negative for history of sleep apnea.? Denies any history of cardiac, renal, pulmonary, or hepatic disease.?? No history of infectious? diseases like hepatitis A, B, C, HIV or tuberculosis.? Patient is not on any anticoagulation [facility] Medical History Type 2 diabetes mellitus with diabetic polyneuropathy DM2 (diabetes mellitus, type 2) Schizophrenia Hyperlipidemia LDL goal <100 Uncontrolled diabetes mellitus Chronic GERD Lipid disorder Surgical History History of back surgery History of knee surgery Hernia History of colonoscopy Family History Father Colon cancer Mother No problems noted. Brother No problems noted. Sister No problems noted. Social History Household Members: Other Household Members Other:: Shared living - [facility] Housing Housing: Assisted Living Facility (service net ) Alcohol intake: never Patient Tobacco Use Status: Current everyday Tobacco user Cigarette Packs Per Day: 1 e-Cigarette/Vaping Use: Never Used Current occupational status: disabled Cognitive needs: No Hearing needs: No Vision needs: Yes Review of Systems Const Denies weight gain and Denies weight loss ENT Reports no additional complaints, Denies dysphagia and Denies odynophagia Card Reports no additional complaints Resp Reports no additional complaints GI Denies abdominal pain, Denies belching, Denies melena, Denies bloating, Denies change in bowel habits, Denies dysphagia, Denies excessive flatus, Denies dyspepsia, Denies heartburn, Denies diarrhea, Denies loose stools, Denies nausea, Denies odynophagia and Denies vomiting Reports no additional complaints Musc Reports no additional complaints Neuro Reports no additional complaints Psych Reports no additional complaints Endo Reports no additional complaints Physical Exam Vital Signs: Last Vital Signs Pulse 80 07/01/24 11:25 BP 120/70 07/01/24 11:25 Pulse Ox 96 07/01/24 11:25 Oxygen Delivery Method Room Air 07/01/24 11:25 BMI result Body Mass Index 29.4 Const General: healthy appearing, no acute distress and well developed Nutritional Appearance: well nourished Orientation/consciousness: patient oriented x3 Resp Effort & Inspection: normal respiratory effort, able to speak in complete sentences, no tracheal deviation and symmetric chest movement Auscultation: clear to auscultation bilaterally Cardio Rate: regular rate GI Inspection: Yes normal to inspection and No distended Palpation (GI): Soft to palpation, not firm, nontender and No hepatosplenomegaly present Auscultation: normal bowel sounds General: Yes no CVA tenderness Back/Spine/Pelvis Back: no CVA tenderness Skin General skin exam: elasticity normal, turgor normal and dry skin Neuro General: patient oriented x3 Psych Appearance: grossly normal Speech and movement: Clear speech present Results AMB Hemoglobin A1c AMB Hemoglobin A1c 8.9 % Last Edit by PIPER Georges on 07/01/24 10:29 Assessment & Plan Assessment & Plan (1) Colon cancer screening: Code(s): Z12.11 - Encounter for screening for malignant neoplasm of colon Category: Medical Plan Patient denies any GI, cardiac or respiratory symptoms.? Denies any issues with anesthesia in the past.? Denies any history of sleep apnea.? No history infectious diseases in the past or present.? Not on any anticoagulation therapy.? Patient denies melena, hematochezia, unintentional weight loss or ribbon like stools.? Discussed at length the pre-procedure,? prep, diet & medications as well as what to expect prior, during and after the procedure.?? Stressed the importance of good bowel prep.? Recommended the use of Vaseline or Calmoseptine OTC & baby wipes with bowel movements to promote comfort.? ?? We will see him after the procedure.? Due to patient's intellectual disability directions were given to his [facility] and his foster caregiver was on phone during the appointments. Medications: New bisacodyl (Dulcolax (bisacodyl)) take 4 tabs at noon the day before your colonoscopy 20 mg (4 x 5 mg) PO ONCE 4 tabs 0RF 1 day Z12.11 - Encounter for screening for malignant neoplasm of colon polyethylene glycol 3350 (Miralax) As directed by gastro[facility]ology department at [facility] 238 grams PO ONCE 238 grams 0RF Z12.11 - Encounter for screening for malignant neoplasm of colon Coding Level of Care Code New Pt Level 3 (74546) Diagnoses Colon cancer screening Z12.11 Time Spent (min) 40 Comment 30 minutes spent with patient and additional 10 minutes spent reviewing his records
[2024-07-01 11:25] VITALS: BP 120/70; PULSE 80; O2SAT 96; BMI 29.4
== END 2024-07-01 11:52 | disposition home or self-care (01) ==
PROVIDERS: PCP Internal Medicine; Visit Provider Nurse Practitioner Family
DX: Z12.11 Encounter for screening for malignant neoplasm of colon (principal)
CPT/HCPCS: 99024

== ENCOUNTER 2024-07-08 12:00 | Outpatient (AMB) | payer MEDICARE, MEDICAID, SELFPAY ==
--- NOTE | 2024-07-08 12:01 | MHC.PC.OV ---
Vital Signs 07/08/24 12:03 Weight 183 lb BP 122/80 Blood Pressure Location Rt brachial Position Sitting Pulse 80 Pulse Source Pulse Oximeter Temp 98.6 F Temp Source Oral Pulse Oximetry (%) 98 Oxygen Delivery Method Room Air Intake Visit Reasons: 6 months follow up Allergies No Known Allergies Allergy (Verified 07/01/24 11:18) Medication List - Last Reconciled 07/08/24 by Mauro Zambrano MD acetaminophen 325 mg PO Q6H PRN alcohol swabs (Alcohol Wipes) 100 pad topical .4 x/day atorvastatin 40 mg PO BEDTIME Basaglar KwikPen U-100 Insulin (insulin glargine) 20 units (0.2 mL) subcut QAM NS bisacodyl (Dulcolax (bisacodyl)) 20 mg (4 x 5 mg) PO ONCE 1 day blood sugar diagnostic ([employer] No Coding strips) Tests 4X/day blood-glucose meter ([employer] Autocode Meter kit) Tests 4X/day blood-glucose sensor (Clean [place] Raúl 3 Plus Sensor device) Use daily As directed to monitor glucose blood-glucose,distribution lead,cont (FreeStyle Raúl 3 [place]) Use daily As directed to monitor blood glucose clonidine HCl 0.1 mg PO TID disposable gloves As directed divalproex ER (Depakote ER) 1,000 mg PO DAILY dulaglutide (Trulicity) 4.5 mg (0.5 mL) subcut QWEEK empagliflozin (Jardiance) 10 mg PO QAM hydroxyzine pamoate (Vistaril) 50 mg PO BEDTIME insulin aspart (niacinamide) 100 unit/mL (3 mL) (Fiasp FlexTouch U-100 Insulin) 5 units subcut BID lancets (Accu-Chek Softclix Lancets) As directed lancets (Prodigy Lancets) tests 4/day latex gloves (Latex Gloves, Medium) As directed lisinopril (Zestril) 2.5 mg PO DAILY metformin 1,000 mg PO BID omeprazole 20 mg PO QAM 90 days pen needle, diabetic (BD Yennifer 2nd Gen Pen Needle) Use 3 times a day As directed polyethylene glycol 3350 (Miralax) 238 grams PO ONCE risperidone 4 mg PO BEDTIME Tobacco use date assessed: 07/08/24 Dental Screening Dental Screen Date: 07/08/24 Did you have a dental visit in the last 12 months?: Yes Did you have a dental problem in the last 6 months where you did not have access to dental care?: No Was dental information given to patient?: Patient has dentist HPI 6 months follow up HPI Details History - The patient is a 54-year-old male presenting with a focus on management of chronic conditions. - He continues to be monitored by an efficiency expert for Type 2 Diabetes Mellitus, with a recent hemoglobin A1c of 8.5, which is a slight improvement from a previous reading of 8.9; however, it has increased from 7.9 in December. - The patient received dietary counseling for diabetes management and has been writing his blood sugar levels on paper to monitor them. - The patient reduced tobacco chewing after being counseled on its negative impact on health, particularly cardiac health. He is unsure of its effect on diabetes but acknowledges it is detrimental to overall health. - His blood pressure is regularly monitored, with a current reading of 122/80. - Cholesterol management is ongoing, with current levels at 135. - The patient has ongoing psychiatric management for Psychiatric conditions, coordinated with his psychiatrist, documented visiting in the past. - He is scheduled for routine follow-up appointments, including one on January 20. Problem List - Type 2 Diabetes Mellitus - Hypertension - Hypercholesterolemia - Tobacco Use Disorder - Pysch illness Patient Instructions - Follow the dietary plan provided by the efficiency expert for diabetes management. - Continue to monitor blood sugar levels at home and record them regularly. - Reduce tobacco use, as it is harmful to heart and lung health. - Attend all scheduled medical appointments, including those with specialists. - Maintain current medication regimen as prescribed. Review of Systems - General: No fever no chills - Neurological: No headaches no dizziness - Ear nose throat: No sore throat no hearing difficulty no ear pain - Cardiovascular: No syncope, no chest pain, no palpitations - Gastrointestinal: No nausea vomiting or diarrhea - Endocrine: No polyuria polydipsia no heat intolerance - Genitourinary: No dysuria , no blood in urine Physical Exam - General: No acute distress - HEENT: No acute findings - Neck: Supple - Respiratory system: Able to talk in full sentences, no audible wheeze - Cardiovascular: S1-S2 regular in rate and rhythm - Gastrointestinal: No pain - Extremities: No new findings - 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 Brother No problems noted. Sister No problems noted. Social History Household Members: Other Household Members Other:: Shared living - [facility] Housing Housing: Assisted Living Facility ([facility] ) Alcohol intake: never Patient Tobacco Use Status: Current everyday Tobacco user Cigarette Packs Per Day: 1 e-Cigarette/Vaping Use: Never Used Current occupational status: disabled Cognitive needs: No Hearing needs: No Vision needs: Yes Questionnaire PHQ-9 Over the last 2 weeks, how often have you been bothered by any of the following problems? 1. Little interest or pleasure in doing things: several days 2. Feeling down, depressed, or hopeless: not at all 3. Trouble falling or staying asleep, or sleeping too much: several days 4. Feeling tired or having little energy: several days 5. Poor appetite or overeating: not at all 6. Feeling bad about yourself - or that you are a failure or have let yourself or your family down: not at all 7. Trouble concentrating on things, such as reading the newspaper or watching television: not at all 8. Moving or speaking so slowly that other people could have noticed. Or the opposite - being so fidgety or restless that you have been moving around a lot more than usual: not at all 9. Thoughts that you would be better off or of hurting yourself in some way: not at all Total score: 3 Depression Screening Interpretation: Negative Depression Screening Done: Yes 33815 - PHQ-9 Billing: Yes Source: Developed by Drs. Juan Akins, Janice Sheets, Oscar Jolly and colleagues, with an educational jyotsna from [employer]. Thrive Questionnaire Date Thrive assessed: 07/05/24 I am a: Patient What is your living situation today?: I have a steady place to live Within the past 12 months, did the food you bought not last and you didn't have the money to get more?: Never true Within the past 12 months, did you worry whether your food would run out before you got money to buy more?: Never true Do you have trouble paying for medicines?: No Do you have trouble getting transportation to medical appointments?: No Do you have trouble paying your heating and electricity bill?: No Do you have trouble taking care of your child, family member or friend?: No Do you have trouble with day-to-day activities such as bathing, preparing meals, shopping, managing finances, etc.?: No Are you currently unemployed and looking for a job?: No Are you interested in more education?: No Please select the resources that you would like help with: None Currently or been in a relationship where the following occur: No concerns reported THRIVE Score: 0 AUDIT C Alcohol Use Questionnaire (AUDIT-C) 1. How often do you have a drink containing alcohol?: Monthly or less 2. How many drinks containing alcohol do you have on a typical day when you are drinking?: 1 or 2 3. How often do you have six or more drinks on one occasion?: Never Total Score: 1 KENNETH-7 AMB Questionnaire KENNETH-7 Date KENNETH - 7 assessed: 01/08/24 Feeling nervous, anxious, or on edge: 0 = Not at all Not being able to stop or control worryin = Not at all Worrying too much about different things: 0 = Not at all Trouble relaxin = Not at all Being so restless that it is hard to sit still: 0 = Not at all Becoming easily annoyed or irritable: 0 = Not at all Feeling afraid as if something awful might happen: 0 = Not at all Total KENNETH-7 score (0-4 normal; 5-9 mild; 10-14 moderate; 15-21 severe): 0 Source: Developed by Drs. Juan Akins, Janice Sheets, Oscar Jolly and colleagues, with an educational jyotsna from [employer]. Physical exam (Primary Care) Vital Signs: Last Vital Signs Pulse 80 07/08/24 12:03 BP 122/80 07/08/24 12:03 Pulse Ox 98 07/08/24 12:03 Oxygen Delivery Method Room Air 07/08/24 12:03 Tobacco/Smoking Status: Tobacco use Status Tobacco use date assessed 07/08/24 07/08/24 12:05 Patient Tobacco Use Status Current everyday Tobacco 07/08/24 12:03 e-Cigarette/Vaping Use Never Used 07/08/24 12:03 PHQ-9: PHQ-9 Score PHQ-9: Total score 3 07/08/24 12:03 Depression Screening Interpretation: Negative Thrive Assessment: Date of Thrive Assessment Date Thrive assessed 07/05/24 07/08/24 12:03 Currently or been in a relationship where the following occur: No concerns reported Coding Level of Care Code Est Pt Level 4 (94234) Complex EM visit Add On G2211 Diagnoses Diabetes 1.5, managed as type 2 E13.9 Lipid disorder E78.9 Chronic GERD K21.9 Type 2 diabetes mellitus with diabetic polyneuropathy, with long-term current use of insulin E11.42; Z79.4 Diabetes mellitus correction insulin use: with terminal clerk use Intellectual disability F79 Additional Codes PHQ-9 - 31631 - PHQ-9 Billing: Yes ([id number]) Assessment & Plan Assessment & Plan (1) Diabetes 1.5, managed as type 2: Code(s): E13.9 - Other specified diabetes mellitus without complications Category: Medical (2) Lipid disorder: Code(s): E78.9 - Disorder of lipoprotein metabolism, unspecified Category: Medical (3) Chronic GERD: Code(s): K21.9 - Gastro-esophageal reflux disease without esophagitis Category: Medical (4) Type 2 diabetes mellitus with diabetic polyneuropathy: Code(s): E11.42 - Type 2 diabetes mellitus with diabetic polyneuropathy Category: Medical Qualifiers: Diabetes mellitus correction insulin use: with correction use Qualified Code(s): E11.42 - Type 2 diabetes mellitus with diabetic polyneuropathy; Z79.4 - superintendent terminal (current) use of insulin (5) Intellectual disability: Code(s): F79 - Unspecified intellectual disabilities Category: Medical Plan History - The patient is a 54-year-old male presenting with a focus on management of chronic conditions. - He continues to be monitored by an efficiency expert for Type 2 Diabetes Mellitus, with a recent hemoglobin A1c of 8.5, which is a slight improvement from a previous reading of 8.9; however, it has increased from 7.9 in December. - The patient received dietary counseling for diabetes management and has been writing his blood sugar levels on paper to monitor them. - The patient reduced tobacco chewing after being counseled on its negative impact on health, particularly cardiac health. He is unsure of its effect on diabetes but acknowledges it is detrimental to overall health. - His blood pressure is regularly monitored, with a current reading of 122/80. - Cholesterol management is ongoing, with current levels at 135. - The patient has ongoing psychiatric management for Psychiatric conditions, coordinated with his psychiatrist, documented visiting in the past. - He is scheduled for routine follow-up appointments, including one on January 20. Problem List - Type 2 Diabetes Mellitus - Hypertension - Hypercholesterolemia - Tobacco Use Disorder - Pysch illness Patient Instructions - Follow the dietary plan provided by the efficiency expert for diabetes management. - Continue to monitor blood sugar levels at home and record them regularly. - Reduce tobacco use, as it is harmful to heart and lung health. - Attend all scheduled medical appointments, including those with specialists. - Maintain current medication regimen as prescribed.
[2024-07-08 12:03] VITALS: BP 122/80; PULSE 80; TEMP 37; O2SAT 98
--- OUTSIDE RECORDS SUMMARY | 2024-07-08 12:03 | XMS_ITS | Clinical Summary ---
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
== END 2024-07-08 12:34 | disposition home or self-care (01) ==
LOC: HO.HMCC 12:01
PROVIDERS: PCP Internal Medicine; Visit Provider Internal Medicine
DX: E11.42 Type 2 diabetes mellitus with diabetic polyneuropathy (principal); Z79.4 Long term (current) use of insulin; E78.9 Disorder of lipoprotein metabolism, unspecified; K21.9 Gastro-esophageal reflux disease without esophagitis; F79 Unspecified intellectual disabilities

== ENCOUNTER → 2024-07-08 12:00 | Outpatient (BNVA) | payer MEDICARE, MEDICAID, SELFPAY | PROVIDERS: PCP Internal Medicine; Visit Provider Internal Medicine | DX: E78.9 Disorder of lipoprotein metabolism, unspecified (principal); K21.9 Gastro-esophageal reflux disease without esophagitis; E11.42 Type 2 diabetes mellitus with diabetic polyneuropathy; Z79.4 Long term (current) use of insulin; F79 Unspecified intellectual disabilities | CPT/HCPCS: 96127; 99212 ==

== ENCOUNTER 2024-08-12 13:12 | Outpatient (REF) | payer MEDICARE, MEDICAID, SELFPAY ==
[2024-08-12 16:28] LABS: Appearance Urine Clear; Color Urine Yellow; Glucose Urine UA >=1000 mg/dL (Negative); Leukocyte Esterase Urine Negative (Negative); Nitrite Urine Negative (Negative); PH 5.5 (5.0-9.0); Specific Gravity - Urine >= 1.030 (1.005-1.025); UMIC TRIGGER UACC YES; Urine Blood Trace (Negative); Urine Ketones Trace mg/dL (Negative); Urine Protein Negative (Neg-Trace)
[2024-08-12 16:35] LABS: Bacteria Urine None Seen (None Seen); Hyaline Casts Urine 0-2 /LPF (0-2); RBC Urine 0-2 /HPF (0-2); Squamous Epithelial Cell Urine 0-2 /HPF (0-2); WBC Urine 0-5 /HPF (0-5)
[2024-08-12 16:50] LABS: Alanine Aminotransferase 11 U/L (0-40); Alkaline Phosphatase 93 U/L (39-117); Amylase 75 U/L (28-100); Anion Gap 13 (12-20); Aspartate Amino Transferase 19 U/L (5-37); Bilirubin Total 0.2 mg/dL (0.0-1.0); Blood Urea Nitrogen 23 mg/dL (9-16); Calcium 9.7 mg/dL (8.4-10.2); Carbon Dioxide 28 mmol/L (22-29); Chloride 101 mmol/L (96-108); Estimated Glomerular Filt Rate > 60; Glucose Random 136 mg/dL (60-115); Lipase 28 U/L (8-78); Potassium 4.3 mmol/L (3.3-5.1); Sodium 138 mmol/L (135-145); Total Protein 7.1 g/dL (6.5-8.0)
[2024-08-12 17:13] LABS: Prostate Specific Antigen 0.79 ng/mL (<0.05-4.0)
== END 2024-08-12 13:13 | disposition home or self-care (01) ==
LOC: HO.HMGCLDS 13:12
PROVIDERS: PCP Internal Medicine; Visit Provider Internal Medicine
DX: Z09 Encounter for follow-up examination after completed treatment for conditions other than malignant neoplasm (principal); K85.80 Other acute pancreatitis without necrosis or infection; R33.9 Retention of urine, unspecified; R62.50 Unspecified lack of expected normal physiological development in childhood; K21.9 Gastro-esophageal reflux disease without esophagitis; Z12.5 Encounter for screening for malignant neoplasm of prostate; Z78.9 Other specified health status; Z74.9 Problem related to care provider dependency, unspecified; Z13.31 Encounter for screening for depression; Z13.39 Encounter for screening examination for other mental health and behavioral disorders
CPT/HCPCS: 36415; 80053; 81001; 82150; 83690; 84153; 96127; 99212

== ENCOUNTER 2024-08-12 13:12 | Outpatient (AMB) | payer MEDICARE, MEDICAID, SELFPAY ==
[2024-08-12 13:14] VITALS: BP 134/82; PULSE 110; TEMP 36.6; O2SAT 98; BMI 28.2
--- NOTE | 2024-08-12 13:14 | MHC.PC.OV ---
Vital Signs 08/12/24 13:14 Height 5 ft 6 in Weight 174 lb 8 oz BMI 28.2 BP 134/82 Blood Pressure Location Lt brachial Position Sitting Pulse 110 H Pulse Source Pulse Oximeter Temp 97.8 F Temp Source Temporal Artery Scan Pulse Oximetry (%) 98 Oxygen Delivery Method Room Air Intake Visit Reasons: Inflamed pancreas Allergies No Known Allergies Allergy (Verified 08/12/24 13:16) Medication List - Last Reconciled 08/12/24 by Mauro Zambrano MD acetaminophen 325 mg PO Q6H PRN alcohol swabs (Alcohol Wipes) 100 pad topical .4 x/day atorvastatin 40 mg PO BEDTIME Basaglar KwikPen U-100 Insulin (insulin glargine) 20 units (0.2 mL) subcut QAM NS bisacodyl (Dulcolax (bisacodyl)) 20 mg (4 x 5 mg) PO ONCE 1 day blood sugar diagnostic (FreshGrade No Coding strips) Tests 4X/day blood-glucose meter (FreshGrade Autocode Meter kit) Tests 4X/day blood-glucose sensor (FreeStyle Raúl 3 Plus Sensor device) Use daily As directed to monitor glucose blood-glucose,mine car dispatcher,cont (FreeStyle Raúl 3 [place]) Use daily As directed to monitor blood glucose clonidine HCl 0.1 mg PO TID disposable gloves As directed divalproex ER (Depakote ER) 1,000 mg PO DAILY dulaglutide (Trulicity) 4.5 mg (0.5 mL) subcut QWEEK empagliflozin (Jardiance) 10 mg PO QAM hydroxyzine pamoate (Vistaril) 50 mg PO BEDTIME insulin aspart (niacinamide) 100 unit/mL (3 mL) (Fiasp FlexTouch U-100 Insulin) 5 units subcut BID lancets (Accu-Chek Softclix Lancets) As directed lancets (Prodigy Lancets) tests 4/day latex gloves (Latex Gloves, Medium) As directed lisinopril (Zestril) 2.5 mg PO DAILY metformin 1,000 mg PO BID omeprazole 20 mg PO QAM 90 days pen needle, diabetic (BD Yennifer 2nd Gen Pen Needle) Use 3 times a day As directed polyethylene glycol 3350 (Miralax) 238 grams PO ONCE risperidone 4 mg PO BEDTIME Tobacco use date assessed: 08/12/24 Dental Screening Dental Screen Date: 08/12/24 Did you have a dental visit in the last 12 months?: Yes Did you have a dental problem in the last 6 months where you did not have access to dental care?: No Was dental information given to patient?: Patient has dentist HPI Inflamed pancreas HPI Details History - The patient is a 54-year-old male with developmental delay, came in today with experiential therapist, presenting with a follow-up after hospitalization for acute pancreatitis and urinary retention. 07/21/2024 [facility] - Acute pancreatitis: The patient was admitted to [facility] with abdominal pain and was diagnosed with acute pancreatitis based on CT scan findings. - The patient was kept overnight for monitoring and was initially given plain liquids, followed by regular food to assess his ability to urinate and defecate. - Urinary retention: The patient had a bladder scan showing 300 cc of urine and was experiencing difficulty in urination, which has since resolved. - Benign prostatic hypertrophy: I suspect prostatic hypertrophy as a cause for urinary retention, starting him on Flomax 0.4 mg daily. - Alcohol use: There is a suspicion of alcohol use contributing to pancreatitis, as the patient reportedly sneaks alcohol occasionally. Problem List - Acute pancreatitis - Benign prostatic hypertrophy - Urinary retention - Developmental delay Diagnostic results - Labs: Lipase was elevated at 800. - Tests: CT scan of the abdomen and pelvis showed findings consistent with acute pancreatitis. - Diagnostics: Bladder scan revealed 300 cc of urine. Patient Instructions - Avoid alcohol consumption to prevent exacerbation of pancreatitis. - Complete the prescribed blood work for pancreatic enzymes and prostate evaluation. - Follow up with the physician in one month to assess urinary function and overall health. - Flomax started Review of Systems General: No fever no chills neurological: No headaches no dizziness ear nose throat: No sore throat no hearing difficulty no ear pain cardiovascular: No syncope, no chest pain, no palpitations gastrointestinal: No nausea vomiting or diarrhea endocrine: No polyuria polydipsia no heat intolerance genitourinary: No dysuria skin: No new complaints Physical Exam general: No acute distress HEENT: No acute findings neck: Supple respiratory system: Able to talk in full sentences, no audible wheeze no stridor cardiovascular: S1-S2 RRR gastrointestinal: No pain extremities: No new findings 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 Brother No problems noted. Sister No problems noted. Social History Household Members: Other Household Members Other:: Shared living - Service Net Housing Housing: Assisted Living Facility (service net ) Alcohol intake: never Patient Tobacco Use Status: Current everyday Tobacco user Cigarette Packs Per Day: 1 e-Cigarette/Vaping Use: Never Used Current occupational status: disabled Cognitive needs: No Hearing needs: No Vision needs: Yes Questionnaire PHQ-9 Over the last 2 weeks, how often have you been bothered by any of the following problems? 1. Little interest or pleasure in doing things: several days 2. Feeling down, depressed, or hopeless: not at all 3. Trouble falling or staying asleep, or sleeping too much: several days 4. Feeling tired or having little energy: several days 5. Poor appetite or overeating: not at all 6. Feeling bad about yourself - or that you are a failure or have let yourself or your family down: not at all 7. Trouble concentrating on things, such as reading the newspaper or watching television: not at all 8. Moving or speaking so slowly that other people could have noticed. Or the opposite - being so fidgety or restless that you have been moving around a lot more than usual: not at all 9. Thoughts that you would be better off or of hurting yourself in some way: not at all Total score: 3 Depression Screening Interpretation: Negative Depression Screening Done: Yes 28352 - PHQ-9 Billing: Yes Source: Developed by Drs. Juan Akins, Janice Sheets, Oscar Jolly and colleagues, with an educational jyotsna from [employer] Thrive Questionnaire Date Thrive assessed: 07/05/24 I am a: Patient What is your living situation today?: I have a steady place to live Within the past 12 months, did the food you bought not last and you didn't have the money to get more?: Never true Within the past 12 months, did you worry whether your food would run out before you got money to buy more?: Never true Do you have trouble paying for medicines?: No Do you have trouble getting transportation to medical appointments?: No Do you have trouble paying your heating and electricity bill?: No Do you have trouble taking care of your child, family member or friend?: No Do you have trouble with day-to-day activities such as bathing, preparing meals, shopping, managing finances, etc.?: No Are you currently unemployed and looking for a job?: No Are you interested in more education?: No Please select the resources that you would like help with: None Currently or been in a relationship where the following occur: No concerns reported THRIVE Score: 0 AUDIT C Alcohol Use Questionnaire (AUDIT-C) 1. How often do you have a drink containing alcohol?: Monthly or less 2. How many drinks containing alcohol do you have on a typical day when you are drinking?: 1 or 2 3. How often do you have six or more drinks on one occasion?: Never Total Score: 1 KENNETH-7 AMB Questionnaire KENNETH-7 Date KENNETH - 7 assessed: 08/12/24 Feeling nervous, anxious, or on edge: 0 = Not at all Not being able to stop or control worryin = Not at all Worrying too much about different things: 0 = Not at all Trouble relaxin = Not at all Being so restless that it is hard to sit still: 0 = Not at all Becoming easily annoyed or irritable: 0 = Not at all Feeling afraid as if something awful might happen: 0 = Not at all Total KENNETH-7 score (0-4 normal; 5-9 mild; 10-14 moderate; 15-21 severe): 0 Source: Developed by Drs. Juan Akins, Janice Sheets, Oscar Jolly and colleagues, with an educational jyotsna from [employer] Physical exam (Primary Care) Vital Signs: Last Vital Signs Temp 97.8 F 08/12/24 13:14 Pulse 110 H 06/27/25 13:14 BP 134/82 08/12/24 13:14 Pulse Ox 98 08/12/24 13:14 Oxygen Delivery Method Room Air 08/12/24 13:14 BMI result Body Mass Index 28.2 Tobacco/Smoking Status: Tobacco use Status Tobacco use date assessed 08/12/24 08/12/24 13:17 Patient Tobacco Use Status Current everyday Tobacco 08/12/24 13:17 e-Cigarette/Vaping Use Never Used 08/12/24 13:17 PHQ-9: PHQ-9 Score PHQ-9: Total score 3 08/12/24 14:00 Depression Screening Interpretation: Negative Thrive Assessment: Date of Thrive Assessment Date Thrive assessed 07/05/24 08/12/24 13:17 Currently or been in a relationship where the following occur: No concerns reported Coding Level of Care Code Est Pt Level 5 (35511) Diagnoses Hospital discharge follow-up Z09 Other acute pancreatitis, unspecified complication status K85.80 Acute pancreatitis complication: unspecified Pancreatitis type: other Urine retention R33.9 Developmental delay, moderate R62.50 Poor historian Z78.9 Dependence on care provider Z74.9 Chronic GERD K21.9 Additional Codes PHQ-9 - 91618 - PHQ-9 Billing: Yes ([id number]) Time Spent (min) 40 Comment Reviewing hospital notes/[id number] with patient and caregiver/coordination of care Assessment & Plan Assessment & Plan (1) Hospital discharge follow-up: Code(s): Z09 - Encounter for follow-up examination after completed treatment for conditions other than malignant neoplasm Category: Medical (2) Acute pancreatitis: Code(s): K85.90 - Acute pancreatitis without necrosis or infection, unspecified Category: Medical Qualifiers: Acute pancreatitis complication: unspecified Pancreatitis type: other Qualified Code(s): K85.80 - Other acute pancreatitis without necrosis or infection (3) Urine retention: Code(s): R33.9 - Retention of urine, unspecified Category: Medical (4) Developmental delay, moderate: Code(s): R62.50 - Unspecified lack of expected normal physiological development in childhood Category: Medical (5) Poor historian: Code(s): Z78.9 - Other specified health status Category: Medical (6) Dependence on care provider: Code(s): Z74.9 - Problem related to care provider dependency, unspecified Category: Social Hx (7) Chronic GERD: Code(s): K21.9 - Gastro-esophageal reflux disease without esophagitis Category: Medical Plan History - The patient is a 54-year-old male with developmental delay, came in today with experiential therapist, presenting with a follow-up after hospitalization for acute pancreatitis and urinary retention. 07/21/2024 [facility] - Acute pancreatitis: The patient was admitted to [facility] with abdominal pain and was diagnosed with acute pancreatitis based on CT scan findings. - The patient was kept overnight for monitoring and was initially given plain liquids, followed by regular food to assess his ability to urinate and defecate. - Urinary retention: The patient had a bladder scan showing 300 cc of urine and was experiencing difficulty in urination, which has since resolved. - Benign prostatic hypertrophy: I suspect prostatic hypertrophy as a cause for urinary retention, starting him on Flomax 0.4 mg daily. - Alcohol use: There is a suspicion of alcohol use contributing to pancreatitis, as the patient reportedly sneaks alcohol occasionally. Problem List - Acute pancreatitis - Benign prostatic hypertrophy - Urinary retention - Developmental delay Diagnostic results - Labs: Lipase was elevated at 800. - Tests: CT scan of the abdomen and pelvis showed findings consistent with acute pancreatitis. - Diagnostics: Bladder scan revealed 300 cc of urine. Patient Instructions - Avoid alcohol consumption to prevent exacerbation of pancreatitis. - Complete the prescribed blood work for pancreatic enzymes and prostate evaluation. - Follow up with the physician in one month to assess urinary function and overall health. - Flomax started Orders: Orders Lipase Today K85.90 - Acute pancreatitis without necrosis or infection, unspecified, R33.9 - Retention of urine, unspecified, Z09 - Encounter for follow-up examination after completed treatment for conditions other than malignant neoplasm Amylase Today K85.90 - Acute pancreatitis without necrosis or infection, unspecified, R33.9 - Retention of urine, unspecified, Z09 - Encounter for follow-up examination after completed treatment for conditions other than malignant neoplasm Prostate Specific Antigen Today K85.90 - Acute pancreatitis without necrosis or infection, unspecified, R33.9 - Retention of urine, unspecified, Z09 - Encounter for follow-up examination after completed treatment for conditions other than malignant neoplasm UA CC w/rflx Micro + Cult Today R33.9 - Retention of urine, unspecified Comprehensive Met. Panel Today K85.90 - Acute pancreatitis without necrosis or infection, unspecified, R33.9 - Retention of urine, unspecified, Z09 - Encounter for follow-up examination after completed treatment for conditions other than malignant neoplasm Medications: New tamsulosin (Flomax) 0.4 mg PO BEDTIME 90 caps 0RF
--- OUTSIDE RECORDS SUMMARY | 2024-08-12 13:44 | XMS_ITS | Clinical Summary ---
Author Organization [facility] Address [address] [facility] [[email or web address]] [address] [place] [address] Phone Care Team Providers Care Director Auto Name Role Phone Mauro Zambrano MD Primary Care Provider [phone] Medications Acetaminophen (Tylenol) 325 MG capsule Take [...] Medicaid [place] Care Teams Director Auto Relationship Specialty Start Date End Date Mauro Zambrano MD [address] [place] [id number] PCP - General 02/27/20
== END 2024-08-12 13:34 | disposition home or self-care (01) ==
LOC: HO.HMCC 13:13
PROVIDERS: PCP Internal Medicine; Visit Provider Internal Medicine
DX: Z09 Encounter for follow-up examination after completed treatment for conditions other than malignant neoplasm (principal); K85.80 Other acute pancreatitis without necrosis or infection; R33.9 Retention of urine, unspecified; R62.50 Unspecified lack of expected normal physiological development in childhood; Z78.9 Other specified health status; Z74.9 Problem related to care provider dependency, unspecified; K21.9 Gastro-esophageal reflux disease without esophagitis

== ENCOUNTER 2024-10-03 10:30 | Outpatient (AMB) | payer MEDICARE, MEDICAID, SELFPAY ==
--- OUTSIDE RECORDS SUMMARY | 2024-03-18 05:30 | XMS_ITS ---
Author Organization [facility] Address [address] [place] [address] Care Team Providers Care Negative Notcher Name Role Phone Juan Manuel Wade Primary Care Provider UnavailKena Sapp [phone] Encounters Encounter Location Date Provider Diagnosis [address] [address] 03/18/2024 Kena Jamison Plan Of Treatment No Information Progress Notes * Piotr RINALDIDOB:1970 ([age] yo M)Acc No.[id number]:03/18/2024 Progress Notes Patient: Piotr SMART Provider: Latricia Jamison DPM :1970 A ge:53 Y S ex:Male Date:03/18/2024 Address:[address] [place], [place] Pcp:Juan Manuel Wade Subjective: * Chief Complaints: [...] DPM Date: 0 03/18/2024 Generated for Watson espinal/Kitty/Celsoitting on: 0 10/03/2024 11:31 AM EDT
[2024-10-03 10:34] VITALS: BP 116/76; PULSE 95; O2SAT 96; BMI 27.8
--- NOTE | 2024-10-03 10:34 | A.OFFVIS_ITS ---
Vital Signs 10/03/24 10:34 Height 5 ft 6 in Weight 171 lb 15.369 oz BMI 27.8 BP 116/76 Blood Pressure Location Rt brachial Position Sitting Pulse 95 Pulse Source Pulse Oximeter Pulse Oximetry (%) 96 Oxygen Delivery Method Room Air Intake Visit Reasons: T2DM Intake Note: Patient present today for Type 2 Diabetes Mellitus Last Diabetic eye exam: DUE, needs to make an appt Last Podiatry Visit: Patient does not see a Medicinal Plant Picker Random Glucose: 296 mg/dL HgA1C: 8.2%, 10/03/2024 Hand Bookbinder Required: No Accompanied by: PLATE HANGER Allergies No Known Allergies Allergy (Verified 10/03/24 10:47) Medication List - Last Reconciled 10/03/24 by Nelly Pabon PA-C acetaminophen 325 mg PO Q6H PRN alcohol swabs (Alcohol Wipes) 100 pad topical .4 x/day atorvastatin 40 mg PO BEDTIME bisacodyl (Dulcolax (bisacodyl)) 20 mg (4 x 5 mg) PO ONCE 1 day blood sugar diagnostic (MethylGene No Coding strips) Tests 4X/day blood-glucose meter (MethylGene Autocode Meter kit) Tests 4X/day clonidine HCl 0.1 mg PO TID disposable gloves As directed divalproex ER (Depakote ER) 1,000 mg PO DAILY hydroxyzine pamoate (Vistaril) 50 mg PO BEDTIME insulin aspart (niacinamide) 100 unit/mL (3 mL) (Fiasp FlexTouch U-100 Insulin) 5 units subcut BID lancets (Accu-Chek Softclix Lancets) As directed lancets (MethylGene Lancets) tests 4/day latex gloves (Latex Gloves, Medium) As directed lisinopril (Zestril) 2.5 mg PO DAILY metformin 1,000 mg PO BID omeprazole 20 mg PO QAM 90 days pen needle, diabetic (BD Yennifer 2nd Gen Pen Needle) Use 3 times a day As directed polyethylene glycol 3350 (Miralax) 238 grams PO ONCE risperidone 4 mg PO BEDTIME tamsulosin (Flomax) 0.4 mg PO BEDTIME HPI HPI T2DM: Details: Patient is a 54-year-old male who presents today for a follow up regarding his diabetes. He does have a significant past medical history of intellectual disability, schizophrenia, type 2 diabetes, hyperlipidemia. He is accompanied today by 1 of his caregivers. In July he was at [facility] and admitted for pancreatitis. It was felt to be alcohol related. Endo: Dm-A1c today is 8.2. He was diagnosed with diabetes 3-4 years ago. He is currently on metformin 1000 mg twice a day, fiasp 5 units twice a day, Basaglar 20 units daily, Trulicity 4.5 mg mg weekly, Jardiance 10 mg daily. CGM-very hyperglycemic 8%, hyperglycemic 22%, in range 70%, hypoglycemic 0%, this recently started so there is not enough data for the G mi. Patient's caregiver state that they have been having a lot of issues with freestyle Raúl. States that they are following off very easily and seem to be irritating his skin. He states that they are using the tape and when he sweats it comes off too quickly. They have had to call recently for multiple replacement sensors. They want to switch plans. He is on an CLIFF-inhibitor and statin. Up-to-date with ophthalmology. Up-to-date with podiatry. -scheduled next month CV: Blood pressure today in the office is 116/76. He is on lisinopril 2.5 mg. Cholesterol is controlled with atorvastatin 40 mg. Psych: Stable. Remains on Risperdal, hydroxyzine and Depakote. [facility] Medical History Type 2 diabetes mellitus with diabetic polyneuropathy DM2 (diabetes mellitus, type 2) Schizophrenia Hyperlipidemia LDL goal <100 Uncontrolled diabetes mellitus Chronic GERD Lipid disorder Surgical History History of back surgery History of knee surgery Hernia History of colonoscopy Family History Father Colon cancer Mother No problems noted. Brother No problems noted. Sister No problems noted. Social History Household Members: Other Household Members Other:: Shared living - Service Net Housing Housing: Assisted Living Facility (service net ) Alcohol intake: never Patient Tobacco Use Status: Current everyday Tobacco user Cigarette Packs Per Day: 1 e-Cigarette/Vaping Use: Never Used Current occupational status: disabled Cognitive needs: No Hearing needs: No Vision needs: Yes Physical Exam Vital Signs: Last Vital Signs Pulse 95 10/03/24 10:34 BP 116/76 10/03/24 10:34 Pulse Ox 96 10/03/24 10:34 Oxygen Delivery Method Room Air 10/03/24 10:34 BMI result Body Mass Index 27.8 Const Orientation/consciousness: patient oriented x3 HEENT Ears: hearing grossly normal bilaterally Neck Thyroid: Thyroid normal Lymphatic: no lymphadenopathy noted Resp Auscultation: clear to auscultation bilaterally Cardio Rate: regular rate Rhythm: regular rhythm Heart sounds: S1 normal heart sound present and S2 normal heart sound present Skin General skin exam: no rashes or lesions noted Neuro General: patient oriented x3, gait normal and no focal motor deficits Results AMB Hemoglobin A1c AMB Hemoglobin A1c 8.2 % Last Edit by PIPER Lynn on 10/03/24 10:50 Results Reviewed Results Reviewed: Laboratory Last Values Glucose (Clinic) 296 mg/dL (60-115) H 10/03/24 10:41 Laboratory Tests 07/01/24 07/01/24 08/12/24 12:05 12:08 13:36 Creatinine 0.73 Estimated GFR > 60 Random Glucose 136 H Hemoglobin A1c % 8.5 H AST 19 ALT 11 Triglycerides 206 H Cholesterol 214 H LDL Cholesterol, Calc 135 H HDL Cholesterol 38 L Urine Creatinine 62.87 Urine Microalbumin < 5.0 Microalb/Creat Ratio TNP Assessment & Plan Assessment & Plan (1) Uncontrolled diabetes mellitus: Code(s): E11.65 - Type 2 diabetes mellitus with hyperglycemia Category: Medical Qualifiers: Diabetes mellitus type: type 2 Glycemic state: with hyperglycemia Qualified Code(s): E11.65 - Type 2 diabetes mellitus with hyperglycemia Plan: Discontinue Trulicity given recent history of pancreatitis and at our last visit I had previously increased it. I will increase the Basaglar to 30 units Continue Fiasp 5 units with meals Increase Jardiance to 25 mg Continue metformin 1000 mg twice a day Discontinue Raúl 3+ sensors and switch to Dexcom Labs ordered today including C-peptide and antibodies Orders: Orders AMB Hemoglobin A1c Today E13.9 - Other specified diabetes mellitus without complications C Peptide Today E11.65 - Type 2 diabetes mellitus with hyperglycemia, Z78.9 - Other specified health status Glutamic acid decarboxylase Ab Today E11.65 - Type 2 diabetes mellitus with hyperglycemia, Z78.9 - Other specified health status Islet Cell Antibody Scrn/Titer Today E11.65 - Type 2 diabetes mellitus with hyperglycemia, Z78.9 - Other specified health status Basic Metabolic Panel Fasting Today E11.65 - Type 2 diabetes mellitus with hyperglycemia, Z78.9 - Other specified health status Medications: New blood-glucose,rn unit manager,cont (Dexcom G7 Electrical Wiring Lineman) use daily As directed to monitor blood glucose 1 ea 0RF blood-glucose sensor (Dexcom G7 Sensor device) Use daily As directed to monitor glucose. 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) use of insulin empagliflozin (Jardiance) 25 mg PO QAM 90 tabs 0RF insulin glargine (Basaglar KwikPen U-100 Insulin) 30 units (0.3 mL) subcut QAM 15 mL 5RF Changed From pen needle, diabetic (BD Yennifer 2nd Gen Pen Needle) Use 3 times a day As directed 100 ea 11RF To pen needle, diabetic Use 3 times a day As directed 100 ea 11RF Refilled alcohol swabs (Alcohol Wipes) 100 pad topical .4 x/day 100 ea 5RF Coding Level of Care Code Est Pt Level 4 (36168) Complex EM visit Add On G2211 Diagnoses Uncontrolled type 2 diabetes mellitus with hyperglycemia E11.65 Diabetes mellitus type: type 2 Glycemic state: with hyperglycemia
[2024-10-03 10:45] LABS: Glucose, Whole Blood 296 mg/dL (60-115)
--- OUTSIDE RECORDS SUMMARY | 2024-10-03 11:31 | XMS_ITS | Clinical Summary ---
Author Organization [address] [facility] Address [address] [place] [address] Phone Care Team Providers Care Link Trainer Mechanic Name Role Phone Mauro Zambrano MD Primary Care Provider [phone] Social History Tobacco Use Types Packs/Day Years [...] Panel) 12/05/2023 Colorectal Cancer Screening: Colonoscopy 12/05/2023 HIV Screening 12/05/2023 Hepatitis C Screening 12/05/2023 Medicare Annual Wellness Visit 12/05/2023 Social Influencers of Health Screening 12/05/2023 Depression Screening 02/17/2024 Influenza Vaccine (#1) 2024 HIB Vaccines Aged Out No longer [...] Insurance MEDICARE MEDICAID - [place] Care Teams Link Trainer Mechanic Relationship Specialty Start Date End Date Mauro Zambrano MD [address] [place] [id number] PCP - General 11/18/23
--- OUTSIDE RECORDS SUMMARY | 2024-10-03 11:31 | XMS_ITS | Clinical Summary ---
Author Organization [facility] Address [address] [facility] [address] [place] [address] Phone Care Team Providers Care Secretary Office Clerk Name Role Phone Mauro Zambrano MD Primary Care Provider [phone] Medications Acetaminophen (Tylenol) 325 MG capsule Take [...] Cancer Screening: Sigmoidoscopy 2017 Influenza Vaccine (#1) 2024 Insurance Medicare Medicaid [place] Medicare [place] Care Teams Secretary Office Clerk Relationship Specialty Start Date End Date Mauro Zambrano MD [address] [place] [id number] PCP - General 02/27/20
== END 2024-10-03 11:06 | disposition home or self-care (01) ==
LOC: HO.ENCR 10:31
PROVIDERS: PCP Internal Medicine; Visit Provider Physician Assistant
DX: E11.65 Type 2 diabetes mellitus with hyperglycemia (principal); E13.9 Other specified diabetes mellitus without complications

== ENCOUNTER 2024-10-03 10:30 | Outpatient (REF) | payer MEDICARE, MEDICAID, SELFPAY ==
[2024-10-03 12:14] LABS: Alanine Aminotransferase 10 U/L (0-40); Albumin Level 3.8 g/dL (3.5-5.0); Alkaline Phosphatase 83 U/L (39-117); Anion Gap 12 (12-20); Aspartate Amino Transferase 18 U/L (5-37); Blood Urea Nitrogen 25 mg/dL (9-16); Calcium 9.1 mg/dL (8.4-10.2); Carbon Dioxide 29 mmol/L (22-29); Chloride 103 mmol/L (96-108); Estimated Glomerular Filt Rate > 60; Potassium 4.2 mmol/L (3.3-5.1); Sodium 140 mmol/L (135-145); Total Protein 7.0 g/dL (6.5-8.0)
== END 2024-10-03 10:31 | disposition home or self-care (01) ==
LOC: HO.LAB 10:30
PROVIDERS: Absent Provider General Practice; PCP Internal Medicine; Visit Provider Physician Assistant
DX: E11.65 Type 2 diabetes mellitus with hyperglycemia (principal); F25.1 Schizoaffective disorder, depressive type; F70 Mild intellectual disabilities; F41.1 Generalized anxiety disorder; Z79.899 Other long term (current) drug therapy; Z78.9 Other specified health status
CPT/HCPCS: 36415; 80048; 80076; 80164; 82947; 83036; 84681; 86341; 99212

== ENCOUNTER 2025-01-06 13:01 | Outpatient (AMB) | payer MEDICARE, MEDICAID, SELFPAY ==
--- OUTSIDE RECORDS SUMMARY | 2024-03-18 04:30 | XMS_ITS ---
[facility] Organization [facility] Address [address] [place] [address] Care Team Providers Care Awake Overnight Counselor Name Role Phone Juan Manuel Wade Primary Care Provider UnavailKena Sapp [phone] Encounters Encounter Location Date Provider Diagnosis [address] [address] 03/18/2024 Kena Jamison Plan Of Treatment No Information Progress Notes * Piotr RINALDIDOB:1970 ([age] yo M)Acc No.[id number]:03/18/2024 Progress Notes Patient: Piotr SMART Provider: Latricia Jamison DPM :1970 A ge:53 Y S ex:Male Date:03/18/2024 Address:[address] [place], [place] Pcp:Juan Manuel Wade Subjective: * Chief Complaints: * * Medical History: Objective: * Vitals: Assessment: Plan: * Treatment: * Images: * The named appointment provid er may or may not be the originator of this progress note, and it is not deemed complete until electronically signed by the appointment provider. Sign off status: Pending * Provider: Latricia Jamison DPM Date: 0 03/18/2024 Generated for Watson espinal/Kitty/Sonia on: 03/08/2024 01:23 PM EST
[2025-01-06 13:04] VITALS: BP 118/60; PULSE 67; O2SAT 97; BMI 29.1
--- NOTE | 2025-01-06 13:04 | MHC.OFFVIS ---
Vital Signs 01/06/25 13:04 Height 5 ft 6 in Weight 180 lb 8.937 oz BMI 29.1 BP 118/60 Blood Pressure Location Lt brachial Position Sitting Pulse 67 Pulse Source Pulse Oximeter Pulse Oximetry (%) 97 Oxygen Delivery Method Room Air Intake Visit Reasons: dm Intake Note: Patient present today for Type 2 Diabetes Mellitus Last Diabetic eye exam: Patient is unsure of last exam Last Podiatry Visit: Doesn't have one but would like a referral. Random Glucose: 193 mg/dl HgA1C: 9.0% Hot Worker Required: No Accompanied by: PLASTICS NURSE Allergies No Known Allergies Allergy (Verified 01/06/25 13:12) Medication List - Last Reconciled 01/06/25 by Nelly Pabon PA-C acetaminophen 325 mg PO Q6H PRN alcohol swabs (Alcohol Wipes) 100 pad topical .4 x/day atorvastatin 40 mg PO BEDTIME bisacodyl (Dulcolax (bisacodyl)) 20 mg (4 x 5 mg) PO ONCE 1 day blood sugar diagnostic (ConnectToHome No Coding strips) Tests 4X/day blood-glucose meter (ConnectToHome Autocode Meter kit) Tests 4X/day clonidine HCl 0.1 mg PO TID disposable gloves As directed divalproex ER (Depakote ER) 1,000 mg PO DAILY empagliflozin (Jardiance) 25 mg PO QAM hydroxyzine pamoate (Vistaril) 50 mg PO BEDTIME insulin aspart (niacinamide) 100 unit/mL (3 mL) (Fiasp FlexTouch U-100 Insulin) 5 units subcut BID insulin glargine (Lantus Solostar U-100 Insulin) 30 units (0.3 mL) subcut DAILY lancets (Accu-Chek Softclix Lancets) As directed lancets (ConnectToHome Lancets) tests 4/day latex gloves (Latex Gloves, Medium) As directed lisinopril (Zestril) 2.5 mg PO DAILY metformin 1,000 mg PO BID omeprazole 20 mg PO QAM 90 days pen needle, diabetic Use 3 times a day As directed polyethylene glycol 3350 (Miralax) 238 grams PO ONCE risperidone 4 mg PO BEDTIME tamsulosin (Flomax) 0.4 mg PO BEDTIME HPI HPI dm: Details: Patient is a 54-year-old male who presents today for a follow up regarding his diabetes. He does have a significant past medical history of intellectual disability, schizophrenia, type 2 diabetes, hyperlipidemia, pacreatitis. He is accompanied today by 1 of his caregivers. In July he was at [facility] and admitted for pancreatitis. It was felt to be alcohol related. Endo: Dm-A1c was 8.2. And today it is 9. He was diagnosed with diabetes around 2020. He is currently on metformin 1000 mg twice a day, fiasp 5 units twice a day, Basaglar 30 units daily, Jardiance 25 mg daily. CGM-he has not been able to use this because he is having issues with it falling off of his skin. Insurance did not cover the Dexcom. He is on an CLIFF-inhibitor and statin. Up-to-date with ophthalmology. Up-to-date with podiatry. -scheduled next month CV: Blood pressure today in the office is 118/60. He is on lisinopril 2.5 mg. Cholesterol is controlled with atorvastatin 40 mg. Psych: Stable COUNT INCLUDES THE [facility] Medical History Type 2 diabetes mellitus with diabetic polyneuropathy DM2 (diabetes mellitus, type 2) Schizophrenia Hyperlipidemia LDL goal <100 Uncontrolled diabetes mellitus Chronic GERD Lipid disorder Surgical History History of back surgery History of knee surgery Hernia History of colonoscopy Family History Father Colon cancer Mother No problems noted. Brother No problems noted. Sister No problems noted. Social History Household Members: Other Household Members Other:: Shared living - [facility] Housing Housing: Assisted Living Facility [facility] ) Alcohol intake: never Patient Tobacco Use Status: Current everyday Tobacco user Cigarette Packs Per Day: 1 e-Cigarette/Vaping Use: Never Used Current occupational status: disabled Cognitive needs: No Hearing needs: No Vision needs: Yes Physical Exam Vital Signs: Last Vital Signs Pulse 67 01/06/25 13:04 BP 118/60 01/06/25 13:04 Pulse Ox 97 01/06/25 13:04 Oxygen Delivery Method Room Air 01/06/25 13:04 BMI result Body Mass Index 29.1 Const Orientation/consciousness: patient oriented x3 HEENT Ears: hearing grossly normal bilaterally Neck Thyroid: Thyroid normal Lymphatic: no lymphadenopathy noted Resp Auscultation: clear to auscultation bilaterally Cardio Rate: regular rate Rhythm: regular rhythm Heart sounds: S1 normal heart sound present and S2 normal heart sound present Skin General skin exam: no rashes or lesions noted Neuro General: patient oriented x3, gait normal and no focal motor deficits Results AMB Hemoglobin A1c AMB Hemoglobin A1c 9.0 % Last Edit by PIPER Georges on 01/06/25 13:24 Results Reviewed Results Reviewed: Laboratory Last Values Glucose (Clinic) 193 mg/dL (60-115) H 01/06/25 13:14 Assessment & Plan Assessment & Plan (1) Uncontrolled type 2 diabetes mellitus with hyperglycemia, with long-term current use of insulin: Code(s): E11.65 - Type 2 diabetes mellitus with hyperglycemia; Z79.4 - intermediate designer (current) use of insulin Category: Medical Plan: Increase Lantus to 35 units Increase fiasp to 8 units Continue metformin and Jardiance I gave him samples of the skin tech wipes and applied a freestyle Raúl 3+ for him today. They have the reader in the car. They will let me know if this works for him. Follow up in a few months or sooner if needed Orders: Orders AMB Hemoglobin A1c Today E11.65 - Type 2 diabetes mellitus with hyperglycemia, Z13.9 - Encounter for screening, unspecified Medications: New blood-glucose sensor (FreeStyle Raúl 3 Plus Sensor device) Use daily As directed to monitor glucose 6 ea 3RF E08.29 - Diabetes mellitus due to underlying condition with other diabetic kidney complication, R80.9 - Proteinuria, unspecified, Z79.4 - intermediate designer (current) use of insulin Changed From insulin aspart (niacinamide) 100 unit/mL (3 mL) (Fiasp FlexTouch U-100 Insulin) with meals 5 units subcut BID 15 mL 2RF To insulin aspart (niacinamide) 100 unit/mL (3 mL) (Fiasp FlexTouch U-100 Insulin) with meals 8 units subcut BID 15 mL 2RF From blood sugar diagnostic (ProdChatLingual No Coding strips) Tests 4X/day 50 ea 5RF E11.65 - Type 2 diabetes mellitus with hyperglycemia, Z79.4 - skilled nursing (current) use of insulin To Prodigy No Coding (blood sugar diagnostic) use to check blood sugar 4 x daily as directed. 100 ea 5RF NS E11.65 - Type 2 diabetes mellitus with hyperglycemia, Z79.4 - skilled nursing (current) use of insulin From insulin glargine (Lantus Solostar U-100 Insulin) 30 units (0.3 mL) subcut DAILY 15 mL 5RF To insulin glargine (Lantus Solostar U-100 Insulin) 35 units (0.35 mL) subcut DAILY 15 mL 5RF From lancets (Prodigy Lancets) tests 4/day 100 ea 4RF E11.65 - Type 2 diabetes mellitus with hyperglycemia, Z79.4 - intermediate designer (current) use of insulin To lancets (Prodigy Lancets) use to check blood sugars 4 x daily. 100 ea 4RF E11.65 - Type 2 diabetes mellitus with hyperglycemia, Z79.4 - skilled nursing (current) use of insulin Patient Instructions: increase lantus to 35 units increase fiasp to 8 units before meals continue metformin and jardiance Coding Level of Care Code Est Pt Level 4 (60297) Diagnoses Uncontrolled type 2 diabetes mellitus with hyperglycemia, with long-term current use of insulin E11.65; Z79.4
[2025-01-06 13:18] LABS: Glucose, Whole Blood 193 mg/dL (60-115)
--- OUTSIDE RECORDS SUMMARY | 2025-01-06 13:24 | XMS_ITS | Clinical Summary ---
Author Organization [address] [facility] Address [address] [place] [address] Phone Care Team Providers Care Monument Setter Name Role Phone Mauro Zambrano MD Primary Care Provider [phone] Social History Tobacco Use Types Packs/Day Years Used Date Smoking Tobacco: Never Assessed Sex and Gender Information Value Date Recorded Sex Assigned at Not on file Legal Sex Male 7:57 PM EST Gender Identity Not on file Sexual Orientation Not on file Plan of Treatment Health Maintenance Due Date Last Done Comments Colorectal Cancer Screening: Colonoscopy 1968 DTaP,Tdap,and Td Vaccines (1 - Tdap) 1987 Hepatitis B Vaccines (1 of 3 - 19+ 3-dose series) 1987 Pneumococcal Vaccine: 50+ Ye ars (1 of 1 - PCV) 2018 Zoster Vaccines (1 of 2) 2018 Cholesterol Screening (Lipid Panel) 12/05/2023 HIV Screening 12/05/2023 Hepatitis C Screening 12/05/2023 Medicare Annual Wellness Visit 12/05/2023 Social Influencers of Health Screening 12/05/2023 Depression Screening 02/17/2024 COVID-19 Vaccine (1 - 2024-2 6 season) 2024 Influenza Vaccine (#1) 2024 RSV Immunization Adult Patie nts (1 - 1-dose 75+ series) 2043 HIB Vaccines Aged Out No longer eligi [...] Insurance MEDICARE MEDICAID - [place] Care Teams Monument Setter Relationship Specialty Start Date End Date Mauro Zambrano MD [address] [place] [address] PCP - General 11/18/23
--- OUTSIDE RECORDS SUMMARY | 2025-01-06 13:24 | XMS_ITS | Clinical Summary ---
Author Organization [facility] Address [address] [facility] [address] [place] [address] Phone Care Team Providers Care Gun Striper Name Role Phone Mauro Zambrano MD Primary Care Provider [phone] Medications Acetaminophen (Tylenol) 325 MG capsule Take [...] Medicaid [place] Care Teams Gun Striper Relationship Specialty Start Date End Date Mauro Zambrano MD [address] [place] [id number] PCP - General 02/27/20
--- OUTSIDE RECORDS SUMMARY | 2025-01-06 13:24 | XMS_ITS | Patient Health Record ---
Author Organization [facility] Address [address] [place] [address] Care Team Providers Care Program Associate Name Role Phone MayelaJuan Manuel barrera Primary Care Provider Kena Metcalf [phone] Reason For Referral No Information Encounters Encounter Location Date Provider Diagnosis [facility] [address] [place] [address] 01/08/2024 Kena Jamison [address] [address] 03/11/2024 Kena Jamison Plan Of Treatment No Information Insurance Providers Payer Name Payer Address Payer Phone Subscriber Number Group Number Insured Name Patient Relationship to Insured Coverage Start Date Coverage End Date [employer] [address] [place] [address] [id number] Piotr Moore Self - patient is the insured
== END 2025-01-06 13:31 | disposition home or self-care (01) ==
LOC: HO.ENCR 13:02
PROVIDERS: PCP Internal Medicine; Visit Provider Physician Assistant
DX: E11.65 Type 2 diabetes mellitus with hyperglycemia (principal); Z79.4 Long term (current) use of insulin; Z13.9 Encounter for screening, unspecified

== ENCOUNTER → 2025-01-06 13:01 | Outpatient (BNVA) | payer MEDICARE, MEDICAID, SELFPAY | PROVIDERS: PCP Internal Medicine; Visit Provider Physician Assistant | DX: E11.65 Type 2 diabetes mellitus with hyperglycemia (principal); Z79.4 Long term (current) use of insulin | CPT/HCPCS: 82947; 83036; 99212 ==